=== PATIENT | male | born 1950 | race Caucasian/White ===

== ENCOUNTER → 2016-08-25 | Outpatient (CLI) | payer BC ==
[2016-08-25 11:58] LABS: Basophils % (A) 0 %; CH 32.8; CHCM 36.2; Eosinophils # (A) 0.3 k/uL (0-0.7); Eosinophils % (A) 4 %; HCT 45.4 % (39.0-53.0); HDW 2.91; HGB 15.8 gm/dL (13.0-17.5); Luc # (Auto) 0.21; Luc % (Auto) 3; Lymphocytes # (A) 2.3 k/uL (1.0-4.8); Lymphocytes % (A) 33 %; MCH 31.5 pg (25.0-35.0); MCHC 34.7 g/dL (31.0-37.0); MCV 90.8 fL (80.0-100.0); Mean Platelet Volume 6.3; Monocytes # (A) 0.5 k/uL (0-1.0); Monocytes % (A) 7 %; Neutrophils # (A) 3.7 k/uL (1.3-7.7); Neutrophils % (A) 53 %; RBC 5.01 m/uL (4.30-5.90); RDW 12.8 % (11.5-15.5); WBC (Perox) 7.19
[2016-08-25 12:18] LABS: Non-African American GFR(MDRD) >60 (>60 ml/min/1.73 sqM)
[2016-08-25 12:20] LABS: INR 1.3 (<1.1)
[2016-08-25 12:21] LABS: Prothrombin Time 12.4 sec (9.0-12.0)
[2016-08-29 15:14] LABS: HCV Qualitative Result DETECTED (Not detected)
== END | disposition home or self-care (01) ==
LOC: LABWHC1 11:09
PROVIDERS: ATTEND Physician Assistant
DX: B18.2 Chronic viral hepatitis C (principal)
CPT/HCPCS: 36415; 82565; 85025; 85610; 87522; 87902

== ENCOUNTER → 2016-10-30 | Outpatient (CLI) | payer BC ==
[2016-10-30 09:50] LABS: CH 33.2; CHCM 36.3; HCT 45.3 % (39.0-53.0); HDW 2.88; HGB 16.1 gm/dL (13.0-17.5); MCH 32.7 pg (25.0-35.0); MCHC 35.5 g/dL (31.0-37.0); Mean Platelet Volume 6.2; RBC 4.93 m/uL (4.30-5.90); RDW 13.2 % (11.5-15.5)
[2016-10-30 10:19] LABS: Anion Gap 11 mmol/L; Blood Urea Nitrogen 19 mg/dL (9-20); Carbon Dioxide 27 mmol/L (22-30); Chloride 103 mmol/L (98-107); Non-African American GFR(MDRD) >60 (>60 ml/min/1.73 sqM); Potassium 4.3 mmol/L (3.5-5.1); Sodium 141 mmol/L (137-145)
== END ==
LOC: LABMAIN 08:51
PROVIDERS: ATTEND Internal Medicine Cardiovascular Disease
DX: Z01.812 Encounter for preprocedural laboratory examination (principal); R07.9 Chest pain, unspecified
CPT/HCPCS: 36415; 80051; 82565; 84520; 85027

== ENCOUNTER 2016-11-03 06:41 | Day surgery (SDC) | payer BC ==
[~2016-11-03 06:41] MED LIST: ALPRAZolam 0.25 MG TAB PO PRN; ALPRAZolam 0.5 MG TAB PO PRN; ASPIRIN 325 MG TAB PO STA; ATORVASTATIN 80 MG TAB PO STA; NITROGLYCERIN SL TABS 0.4 MG TAB SUBLINGUAL PRN; SODIUM CHLORIDE 0.9% 1,000 ML in EMPTY BAG 1 BAG IV ONE
[2016-11-03 07:03] VITALS: RESP 16
[2016-11-03 07:06] LABS: Glucose,Whole Blood 144 mg/dL (75-99)
[2016-11-03] MEDS ORDERED: SODIUM CHLORIDE 0.9% 1,000 ML IV ONE (07:10)
[2016-11-03] MEDS ORDERED: LIDOCAINE 2% INJ 20 MG/ML (20 ML MDV) ONE (07:15)
[2016-11-03] MEDS ORDERED: diphenhydrAMINE 50 MG/ML 1 ML VIAL ONE (07:15)
[2016-11-03] MEDS ORDERED: MIDAZOLAM 2 MG/2 ML VIAL ONE (07:15)
[2016-11-03] MEDS ORDERED: fentaNYL (PF) 50 MCG/ML 2 ML AMP ONE (07:15)
[2016-11-03] MEDS ORDERED: fentaNYL (PF) 50 MCG/ML 2 ML AMP IV ONE (07:45)
[2016-11-03] MEDS ORDERED: diphenhydrAMINE 50 MG/ML 1 ML VIAL IVP ONE (07:45)
[2016-11-03] MEDS ORDERED: MIDAZOLAM 2 MG/2 ML VIAL IVP ONE (07:45)
[2016-11-03] MEDS ORDERED: LIDOCAINE 2% INJ 20 MG/ML SQ ONE (07:49)
[2016-11-03] MEDS ORDERED: IOHEXOL 350 MG/ML 100 ML BOTTLE INJ ONE (08:17)
[2016-11-03] MEDS ORDERED: RX INFO: IV CONTRAST WAS GIVEN 1 EACH MISC MISCELLANE PRN (08:23)
[2016-11-03] MEDS: SODIUM CHLORIDE 0.9% 1,000 ML IV SCH ×2 (08:30→21:19)
[2016-11-03] MEDS ORDERED: OMEGA 3 FATTY ACIDS PO SCH (08:30)
[2016-11-03] MEDS ORDERED: NITROGLYCERIN SL TABS 0.4 MG TAB SUBLINGUAL PRN (08:31)
--- NOTE | 2016-11-03 08:37 | P.PCN ---
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 His EKG showed biphasic T-wave changes in the lateral leads. Patient is advised to have a cardiac catheterization for definitive diagnosis. CONSENT:I have discussed the risks, benefits and alternative therapies for the above-mentioned procedure and for both sedation/analgesia as well as necessary blood product administration, if indicated, as they pertain to this patient. The patient has indicated understanding and acceptance of the risks and procedures discussed. PROCEDURE: Patient was brought to the lab in a fasting state. Patient was given some IV sedation. The right groin is infiltrated with lidocaine and right femoral artery was entered using Seldinger technique. A 6-Spanish catheter was left in place and selective coronary arteriography and left ventriculography was performed. Patient tolerated the procedure well. Femoral angiogram was performed and Angio-Seal was applied for hemostasis. No immediate complications were noted and patient was transferred to [facility] in a stable condition HEMODYNAMICS: Aortic pressure is 130/70. Left ankle end-diastolic pressure is 15. There was no gradient across the aortic valve SELECTIVE CORONARY ARTERIOGRAPHY: LEFT MAIN: Normal length and patent THE LEFT ANTERIOR DESCENDING CORONARY ARTERY: Good caliber vessel with a long lesion of the origin of the first septal branch that extended to the midportion. The mid LAD appears be fair in caliber. There appears to be a lesion in the distal LAD near the apex. There are faint collaterals from the right to the left. THE LEFT CIRCUMFLEX AND IS CORONARY ARTERY: Good caliber vessel free of any occlusive disease THE RIGHT CORONARY ARTERY: Good caliber vessel free of occlusive disease with collaterals to the LAD. LEFT VENTRICULOGRAPHY: Revealed normal-sized cardiac silhouette with hypokinesia of the apex and anteroapical segments. Ejection fraction is 45% FINAL IMPRESSION: Critical lesion involving the LAD which is a long lesion. There is a critical lesion involving the septal branch also. Rest of the vessels are free of occlusive disease. PLAN: The films were reviewed with retail mortgage banker Dr. Avina who felt that the lesions are not suitable for stent placement. Cardiac surgery consultation is obtained and an outpatient bypass surgery is being planned. Meanwhile patient will be continued on beta blockers and nitrates along with aspirin and lipid- lowering agent and also NIRMAL inhibitor. PROGNOSIS: Guarded
[2016-11-03] MEDS ORDERED: [UNRECOGNIZED DRUG - OTHER] PO SCH (09:00)
--- NOTE | 2016-11-03 11:47 | ECHOF ---
Referral Reason:pre-op open heart MEASUREMENTS -------- HEIGHT: 182.9 cm WEIGHT: 103.0 kg BP: IVSd: 1.5 cm (0.6 - 1.1) LVIDd: 3.6 cm (3.9 - 5.3) LVPWd: 1.4 cm (0.6 - 1.1) IVSs: 1.6 cm LVIDs: 2.2 cm LVPWs: 1.3 cm Ao Diam: 3.7 cm (2.0 - 3.7) AV Cusp: 2.1 cm (1.5 - 2.6) LA Diam: 3.4 cm (2.7 - 3.8) MV EXCURSION: 16.399 mm (> 18.000) MV EF SLOPE: 44 mm/s (70 - 150) EPSS: 0.5 cm MV E Luis Antonio: 0.70 m/s MV DecT: 168 ms MV A Luis Antonio: 0.46 m/s MV E/A Ratio: 1.52 RAP: 5.00 mmHg RVSP: 21.56 mmHg FINDINGS -------- Resting bradycardia (HR<60bpm). This was a technically good study. There is moderate concentric left ventricular hypertrophy. Overall left ventricular systolic function is low-normal with, an EF between 50 - 55 %. The right ventricle is normal in size and function. The left atrium is normal in size. The right atrium is normal in size. The aortic valve is trileaflet, and appears structurally normal. No aortic stenosis or regurgitation. There is trace mitral regurgitation. Mild tricuspid regurgitation present. The right ventricular systolic pressure, as measured by Doppler, is 21.56mmHg. Pulmonic valve appears structurally normal. The aortic root size is normal. The pericardium is normal. CONCLUSIONS -------- 1. Resting bradycardia (HR<60bpm). 2. Mild tricuspid regurgitation present. 3. The right ventricular systolic pressure, as measured by Doppler, is 21.56mmHg. 4. Pulmonic valve appears structurally normal. 5. The aortic root size is normal. 6. The pericardium is normal. 7. This was a technically good study. 8. There is moderate concentric left ventricular hypertrophy. 9. Overall left ventricular systolic function is low-normal with, an EF between 50 - 55 %. 10. The right ventricle is normal in size and function. 11. The left atrium is normal in size. 12. The right atrium is normal in size. 13. The aortic valve is trileaflet, and appears structurally normal. No aortic stenosis or regurgitation. 14. There is trace mitral regurgitation. BIOSTATISTICS PROFESSOR: Kami Biswas RDCS
--- NOTE | 2016-11-03 11:47 | US ---
EXAMINATION TYPE: US carotid duplex BILAT DATE OF EXAM: 11/03/2016 11:33 AM COMPARISON: NONE CLINICAL HISTORY: pre-op CABG. EXAM MEASUREMENTS: RIGHT: Peak Systolic Velocity (PSV) cm/sec ----- Right CCA: 45.5 ----- Right ICA: 62.9 ----- Right ECA: 62.9 ICA/CCA ratio: 1.4 RIGHT: End Diastole cm/sec ----- Right CCA: 15.6 ----- Right ICA: 24.3 ----- Right ECA: 10.4 LEFT: Peak Systolic Velocity (PSV) cm/sec ----- Left CCA: 49.4 ----- Left ICA: 70.3 ----- Left ECA: 53.7 ICA/CCA ratio: 1.4 LEFT: End Diastole cm/sec ----- Left CCA: 15.4 ----- Left ICA: 28.4 ----- Left ECA: 7.5 VERTEBRALS (direction of flow): Right Vertebral: Antegrade Left Vertebral: Antegrade No significant velocity elevations, mild plaque. IMPRESSION: No evidence for hemodynamically significant stenosis. Criteria for Assigning % of Stenosis / Diameter reduction (Estimation based on the indirect measurements of the internal carotid artery velocities (ICA PSV). 1. Normal (no stenosis)=ICA PSV < 125 cm/s: ratio < 2.0: ICA EDV<40 cm/s. 2. Less than 50% stenosis=ICA PSV < 125 cm/s: ratio < 2.0: ICA EDV<40 cm/s. 3. 50 to 69% stenosis=ICA PSV of 125 to 230 cm/s: ration 2.0 ? 4.0: ICA EDV 40-100 cm/s. 4. Greater than 70% stenosis to near occlusion= ICA PSV > 230 cm/s: ratio > 4.0: ICA EDV > 100 cm/s. 5. Near occlusion= ICA PSV velocities may be low or undetectable: variable ratio and ICA EDV. 6. Total occlusion=unable to detect flow.
[2016-11-03 12:53] LABS: Appearance,Urine Clear (Clear); Bilirubin,Urine Negative (Negative); Glucose,Urine (UA) Negative (Negative); Ketones,Urine Negative (Negative); Leukocyte Esterase,Urine Negative (Negative); Nitrite,Urine Negative (Negative); Protein,Urine Negative (Negative); Specific Gravity,Urine 1.033 (1.001-1.035); UA Billing (MACRO vs. MICRO) CHEM; Urobilinogen,Urine <2.0 mg/dL (<2.0)
--- NOTE | 2016-11-03 13:10 | XR ---
EXAMINATION TYPE: XR chest 2V DATE OF EXAM: 11/03/2016 1:02 PM COMPARISON: NONE HISTORY: Shortness of breath TECHNIQUE: Frontal and lateral views of the chest are obtained. FINDINGS: Scattered senescent parenchymal changes noted. Hyperinflation compatible with COPD. No evidence for infiltrate. No evidence for atelectasis. Heart size is stable. Mediastinal structures are stable and grossly unremarkable. No evidence for hilar prominence. Degenerative changes dorsal spine. IMPRESSION: 1. No evidence for acute pulmonary disease.
[2016-11-03] MEDS ORDERED: ISOSORBIDE MONONITRATE ER 15 MG TAB PO STA (15:12)
[2016-11-03] MEDS: LISINOPRIL 2.5 MG TAB PO SCH (15:12)
--- NOTE | 2016-11-03 15:36 | P.GSCN ---
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 Patient is been having exertional angina for several months now. cardiothoracic surgical consult was called Review of Systems - Cardiovascular Reports chest pain Past Medical History Additional Past Medical History / Comment(s): See Dr Frost H&P, diet control diabetic. Hepatitis C ( + ) History of Any Multi-Drug Resistant Organisms: None Reported Additional Past Surgical History / Comment(s): colonocopy Past Anesthesia/Blood Transfusion Reactions: No Reported Reaction Past Psychological History: Anxiety Smoking Status: Former smoker Past Alcohol Use History: Occasional Additional Past Alcohol Use History / Comment(s): quit smoking yrs ago Past Drug Use History: None Reported - Past Family History Mother Family Medical History: No Reported History Medications and Allergies Home Medications Medication Instructions Recorded Confirmed Type Aspirin [Adult Low Dose Aspirin EC] 81 mg PO DAILY 11/01/16 11/03/16 History Gluc/Gregg-MSM#1/C/Robinson/Link/Bor 1 each PO DAILY 11/01/16 11/03/16 History [Glucosamine-Chondroitin Tablet] Lactobacillus Acidophilus 1 each PO DAILY 11/01/16 11/03/16 History [Acidophilus] Loratadine-Pseudoeph 10-240 mg 1 each PO DAILY 11/01/16 11/03/16 History [Claritin-D 24 Hr] Montelukast Sodium [Singulair] 10 mg PO DAILY 11/01/16 11/03/16 History Multivitamins, Thera [Multivitamin 1 tab PO DAILY 11/01/16 11/03/16 History (formulary)] [place]-3 Fatty Acids [[place]-3] 1,500 mg PO Q48H 11/01/16 11/03/16 History Allergies Allergy/AdvReac Type Severity Reaction Status Date / Time No Known Allergies Allergy Verified 11/01/16 15:10 Surgical - Exam Vital Signs Pulse Resp BP Pulse Ox 63 16 135/79 96 11/03/16 06:57 11/03/16 06:57 11/03/16 06:57 11/03/16 06:57 - General well developed, well nourished, no distress - Eyes normal ocular movement, no icteric - ENT no hearing loss, no congestion - Neck no masses, trachea midline - Respiratory normal respiratory effort, clear to auscultation - Cardiovascular Rhythm: regular Heart Sounds: normal: S1, S2 - Abdomen Abdomen: soft, non tender, no guarding, no rigid, no rebound - Genitourinary DEFERRED - Rectum DEFERRED - Integumentary no rash, no abnormal pigmentation - Neurologic no disoriented, no combative - Psychiatric oriented to time, oriented to person, oriented to place, speech is normal, memory intact MILD EDEMA BOTH LOWER EXTREMITIES. Results - Labs 11/03/16 12:39 11/03/16 12:39 Abnormal Lab Results - Last 24 Hours (Table) 11/03/16 11/03/16 11/03/16 Range/Units 07:03 12:39 12:39 PT 12.5 H (9.0-12.0) sec Carbon Dioxide 33 H (22-30) mmol/L Glucose 125 H (74-99) mg/dL POC Glucose (mg/dL) 144 H (75-99) mg/dL Triglycerides 245 H (<150) mg/dL HDL Cholesterol 33 L (40-60) mg/dL Microbiology - Last 24 Hours (Table) 11/03/16 09:49 Nasal Screen MRSA/MSSA (SANDRA) - Preliminary Nasal Swab Diabetes panel 11/03/16 Range/Units 12:39 Sodium 144 (137-145) mmol/L Potassium 4.2 (3.5-5.1) mmol/L Chloride 105 (98-107) mmol/L Carbon Dioxide 33 H (22-30) mmol/L BUN 15 (9-20) mg/dL Creatinine 0.97 (0.66-1.25) mg/dL Glucose 125 H (74-99) mg/dL Calcium 9.2 (8.4-10.2) mg/dL AST 41 (17-59) U/L ALT 64 (21-72) U/L Alkaline Phosphatase 55 (38-126) U/L Total Protein 6.8 (6.3-8.2) g/dL Albumin 3.9 (3.5-5.0) g/dL Triglycerides 245 H (<150) mg/dL HDL Cholesterol 33 L (40-60) mg/dL Thyroid panel 11/03/16 Range/Units 12:39 TSH 1.310 (0.465-4.680) mIU/L Calcium panel 11/03/16 Range/Units 12:39 Calcium 9.2 (8.4-10.2) mg/dL Albumin 3.9 (3.5-5.0) g/dL Pituitary panel 11/03/16 Range/Units 12:39 Sodium 144 (137-145) mmol/L Potassium 4.2 (3.5-5.1) mmol/L Chloride 105 (98-107) mmol/L Carbon Dioxide 33 H (22-30) mmol/L BUN 15 (9-20) mg/dL Creatinine 0.97 (0.66-1.25) mg/dL Glucose 125 H (74-99) mg/dL Calcium 9.2 (8.4-10.2) mg/dL TSH 1.310 (0.465-4.680) mIU/L Adrenal panel 11/03/16 Range/Units 12:39 Sodium 144 (137-145) mmol/L Potassium 4.2 (3.5-5.1) mmol/L Chloride 105 (98-107) mmol/L Carbon Dioxide 33 H (22-30) mmol/L BUN 15 (9-20) mg/dL Creatinine 0.97 (0.66-1.25) mg/dL Glucose 125 H (74-99) mg/dL Calcium 9.2 (8.4-10.2) mg/dL Total Bilirubin 0.6 (0.2-1.3) mg/dL AST 41 (17-59) U/L ALT 64 (21-72) U/L Alkaline Phosphatase 55 (38-126) U/L Total Protein 6.8 (6.3-8.2) g/dL Albumin 3.9 (3.5-5.0) g/dL - Imaging Chest x-ray: report reviewed, image reviewed EKG: report reviewed, image reviewed Additional studies: CAROTID DUPLEX RULED OUT ANY SIGNIFICANT CAROTID STENOSIS. 2-d ECHO SHOWS AN EJECTION FRACTION OF 50-55%WITH MILD MITRAL VALVE REGURGITATION. Cardiac catheterization shows a long severe proximal left anterior descending artery stenosis of the coronary vessels have no flow-limiting stenosis. Assessment and Plan Plan: 66 YEARS OLD GENTLEMAN WITH CHRONIC EXERTIONAL ANGINA WITH SEVERE PROXIMAL STENOSIS OF THE LEFT ANTERIOR DESCENDING ARTERY. we will initiate preoperative workup and tentatively schedule the patient for single-vessel coronary artery bypass grafting on a beating heart next week. Risks benefits and alternatives of surgery were discussed with the patient will be to proceed. Thank you for the privilege of this consult
[2016-11-03] MEDS ORDERED: MULTIVITAMINS, THERA 1 EACH TAB PO SCH (16:00)
[2016-11-03] MEDS: METOPROLOL TARTRATE 25 MG TAB PO SCH ×3 (17:43→21:18)
[2016-11-03] MEDS: LORATADINE-PSEUDOEPH 5-120 MG 1 EACH TAB.ER.12H PO SCH ×2 (17:44→17:50)
[2016-11-03] MEDS: LACTOBACILLUS ACIDOPH & BULGAR 1 EACH PACKET PO SCH (17:45)
[2016-11-03] MEDS: MONTELUKAST 10 MG TAB PO SCH ×2 (17:45→17:50)
[2016-11-03 18:01] VITALS: BMI 31.7
[2016-11-03 18:38] LABS: Hemoglobin A1C 6.2 % (4.2-6.1)
[2016-11-04 08:12] VITALS: BP 98/49; PULSE 53; TEMP 97.9
[2016-11-04] MEDS ORDERED: ATORVASTATIN 80 MG TAB PO SCH (09:00)
[2016-11-04] MEDS ORDERED: ISOSORBIDE MONONITRATE ER 15 MG TAB PO SCH (09:00)
[2016-11-04] MEDS ORDERED: ASPIRIN 81 MG CHEW PO SCH (09:00)
[2016-11-04] MEDS: LACTOBACILLUS ACIDOPH & BULGAR 1 EACH PACKET PO SCH (09:12)
[2016-11-04] MEDS: LORATADINE-PSEUDOEPH 5-120 MG 1 EACH TAB.ER.12H PO SCH (09:12)
[2016-11-04] MEDS: MONTELUKAST 10 MG TAB PO SCH (09:12)
[2016-11-04] MEDS: METOPROLOL TARTRATE 25 MG TAB PO SCH (10:32)
[2016-11-04] MEDS: LISINOPRIL 2.5 MG TAB PO SCH (10:32)
== END 2016-11-04 10:55 | disposition home or self-care (01) ==
LOC: CATHCVL 06:41 → 3OBS 08:03 → CATHCVL 11-04 10:55
PROVIDERS: ATTEND Internal Medicine Cardiovascular Disease
DX: I25.110 Atherosclerotic heart disease of native coronary artery with unstable angina pectoris (principal); R94.31 Abnormal electrocardiogram [ECG] [EKG]; R00.1 Bradycardia, unspecified; I08.1 Rheumatic disorders of both mitral and tricuspid valves; I51.7 Cardiomegaly; E78.9 Disorder of lipoprotein metabolism, unspecified; E11.9 Type 2 diabetes mellitus without complications; F41.9 Anxiety disorder, unspecified; Z87.891 Personal history of nicotine dependence; Z79.82 Long term (current) use of aspirin; Z79.899 Other long term (current) drug therapy
CPT/HCPCS: 94150; 93306; 93005; 93458; 83036; 81003; 87070; 87086; 71020; 93880; C1760; C1894; C1769; J2001; J2250; J1200; Q9967; J3010; 80053; 80061; 80074; 83735; 83880; 84443; 85025; 85610; 85730; 86850; 86900; 86901; 86920

== ENCOUNTER → 2016-11-07 | Outpatient (CLI) | payer BC ==
[2016-11-11 17:06] LABS: Mis test requested (Blood) Hep. C RNA Geno NS5a
== END ==
LOC: LABWHC1 14:50
PROVIDERS: ATTEND Physician Assistant
DX: B18.2 Chronic viral hepatitis C (principal)
CPT/HCPCS: 36415; 87902

== ENCOUNTER 2016-11-10 05:55 | Inpatient (IN) | payer BC ==
[2016-11-03 13:12] LABS: ALT 64 U/L (21-72); AST 41 U/L (17-59); Alkaline Phosphatase 55 U/L (38-126); Anion Gap 6 mmol/L; Blood Urea Nitrogen 15 mg/dL (9-20); Calcium 9.2 mg/dL (8.4-10.2); Carbon Dioxide 33 mmol/L (22-30); Chloride 105 mmol/L (98-107); Cholesterol 130 mg/dL (<200); Glucose 125 mg/dL (74-99); HDL Cholesterol 33 mg/dL (40-60); Magnesium 2.1 mg/dL (1.6-2.3); Non-African American GFR(MDRD) >60 (>60 ml/min/1.73 sqM); Potassium 4.2 mmol/L (3.5-5.1); Sodium 144 mmol/L (137-145); Total Bilirubin 0.6 mg/dL (0.2-1.3); Total Protein 6.8 g/dL (6.3-8.2); Triglycerides 245 mg/dL (<150)
[2016-11-03 13:15] LABS: Basophils % (A) 0 %; CH 32.5; CHCM 35.5; Eosinophils # (A) 0.2 k/uL (0-0.7); Eosinophils % (A) 3 %; HCT 44.2 % (39.0-53.0); HDW 2.92; HGB 15.6 gm/dL (13.0-17.5); Luc # (Auto) 0.18; Luc % (Auto) 3; Lymphocytes # (A) 2.4 k/uL (1.0-4.8); Lymphocytes % (A) 35 %; MCH 32.4 pg (25.0-35.0); MCHC 35.3 g/dL (31.0-37.0); MCV 91.8 fL (80.0-100.0); Mean Platelet Volume 6.5; Monocytes # (A) 0.4 k/uL (0-1.0); Monocytes % (A) 6 %; Neutrophils # (A) 3.6 k/uL (1.3-7.7); Neutrophils % (A) 53 %; RBC 4.81 m/uL (4.30-5.90); RDW 12.7 % (11.5-15.5); WBC 6.8 k/uL (3.8-10.6); WBC (Perox) 6.76
[2016-11-03 13:18] LABS: INR 1.3 (<1.1); Partial Thromboplastin Time 26.1 sec (22.0-30.0); Prothrombin Time 12.5 sec (9.0-12.0)
[2016-11-03 13:42] LABS: Hepatitis B Surface Ag Index 0.07
[2016-11-03 13:48] LABS: Hepatitis B Core IgM Index 0.59
[2016-11-03 14:00] LABS: Hepatitis C Virus IgG Ab Reactive (Negative)
[2016-11-08 15:01] VITALS: BMI 30.7
[~2016-11-10 05:55] MED LIST changes: +ALBUMIN HUMAN 25% 50 ML IV ONE; +ALBUMIN HUMAN 5% 500 ML IVPB ONE; -ALPRAZolam 0.25 MG TAB PO PRN; -ALPRAZolam 0.5 MG TAB PO PRN; +ASPIRIN 325 MG TAB PO ONE; -ASPIRIN 325 MG TAB PO STA; +ATORVASTATIN 10 MG TAB PO ONE; -ATORVASTATIN 80 MG TAB PO STA; +CALCIUM CHLORIDE 100 MG/ML 10 ML SYRINGE IV ONE; +CHLORHEXIDINE GLUCONATE 15 ML CUP MUCOUS MEM ONE; +HEPARIN SODIUM 1,000 UNIT/ML VIAL IV ONE; +HEPARIN SODIUM,PORCINE 5,000 UNIT in SODIUM CHLORIDE 0.9% 500 ML IV ONE; +INSULIN REGULAR 100 UNIT in SODIUM CHLORIDE 0.9% 100 ML IV ONE; +LACTATED RINGERS 1,000 ML IV ONE; +MAGNESIUM SULFATE MG 500 MG/ML VIAL IV ONE; +METOPROLOL TARTRATE 12.5 MG TAB PO ONE; +NITROGLYCERIN SL TABS 0.4 MG TAB SUBLINGUAL ONE; -NITROGLYCERIN SL TABS 0.4 MG TAB SUBLINGUAL PRN; +NITROGLYCERIN-D5W PMX 25 MG/250 ML BTL IV ONE; +NITROGLYCERIN-D5W PMX 50 MG in DEXTROSE/WATER 1 250ML.BAG IV ONE; +NOREPINEPHRIN 4 MG-0.9% NS PMX 4 MG/250 ML ML IV ONE; +PAPAVERINE 360 MG in SODIUM CHLORIDE 0.9% 90 ML IV ONE; +PHENYLEPHRINE 40 MG in SODIUM CHLORIDE 0.9% 250 ML IV ONE; +PHENYLEPHRINE-0.9% NACL SYG 1 MG/10 ML SYRINGE IV ONE; +PROPOFOL 50 ML IV ONE; +PROTAMINE SULFATE 10 MG/ML 25 ML VIAL IV ONE; +PROTAMINE SULFATE 250 MG in EMPTY BAG 1 BAG IV ONE; +SODIUM BICARB 8.4% 50 ML SYR (1 MEQ/ML) IV ONE; +SODIUM CHLORIDE 0.9% 1,000 ML IV ONE; -SODIUM CHLORIDE 0.9% 1,000 ML in EMPTY BAG 1 BAG IV ONE; +VANCOMYCIN 1,500 MG in SODIUM CHLORIDE 0.9% 100 ML IVPB ONE; +VANCOMYCIN 1,500 MG in SODIUM CHLORIDE 0.9% 250 ML IVPB ONE; +ceFAZolin 1,000 MG in SODIUM CHLORIDE 0.9% IRRIGATIO 1,000 ML IRRIGATION ONE; +ceFAZolin 2,000 MG in SODIUM CHLORIDE 0.9% 30 ML IVPB ONE
[2016-11-10 06:21] LABS: Glucose,Whole Blood 142 mg/dL (75-99)
[2016-11-10] MEDS ORDERED: ALBUMIN HUMAN 5% 250 ML BOTTLE IVPB ONE (10:06)
[2016-11-10] MEDS ORDERED: HEPARIN SODIUM,PORCINE 10,000 UNIT/ML 1 ML VIAL ONE (10:06)
[2016-11-10] MEDS ORDERED: PHENYLEPHRINE-0.9% NACL SYG 1 MG/10 ML SYRINGE ONE (10:06)
[2016-11-10] MEDS ORDERED: PROPOFOL 10 MG/ML 20 ML VIAL IV ONE (10:06)
[2016-11-10] MEDS ORDERED: PROTAMINE SULFATE 10 MG/ML 25 ML VIAL IV ONE (10:06)
[2016-11-10] MEDS ORDERED: MIDAZOLAM 2 MG/2 ML VIAL ONE (10:06)
[2016-11-10] MEDS ORDERED: MAGNESIUM SULFATE 4 MEQ/ML 2 ML VIAL ONE (10:06)
[2016-11-10] MEDS ORDERED: VECURONIUM 10 MG VIAL IV ONE (10:06)
[2016-11-10] MEDS ORDERED: ePHEDrine 50 MG/ML 1 ML AMP ONE (10:06)
[2016-11-10] MEDS ORDERED: fentaNYL (PF) 50 MCG/ML 2 ML AMP ONE (10:06)
[2016-11-10] MEDS ORDERED: ALBUMIN HUMAN 5% 500 ML VIAL IVPB ONE (10:06)
[2016-11-10] MEDS ORDERED: SODIUM CHLORIDE 0.9% IRRIG 1,000 ML BTL IRRIGATION ONE (10:06)
[2016-11-10] MEDS ORDERED: fentaNYL (PF) 50 MCG/ML 50 ML VIAL ONE (10:06)
[2016-11-10 10:49] LABS: Glucose,Whole Blood 120 mg/dL (75-99)
[2016-11-10 12:07] LABS: Glucose,Whole Blood 125 mg/dL (75-99)
[2016-11-10 13:06] LABS: Glucose,Whole Blood 113 mg/dL (75-99)
[2016-11-10] MEDS ORDERED: METOCLOPRAMIDE 5 MG/ML 2 ML VIAL IVP PRN (13:51)
[2016-11-10] MEDS ORDERED: MORPHINE SULFATE 2 MG/ML SYRINGE IVP PRN (13:51)
[2016-11-10] MEDS ORDERED: BENZOCAINE/MENTHOL LOZENG 1 EACH LOZENGE MUCOUS MEM PRN (13:51)
[2016-11-10] MEDS ORDERED: Potassium Replacement Protocol 1 EACH MISC MISCELLANE PRN (13:51)
[2016-11-10] MEDS ORDERED: ONDANSETRON 4 MG/2 ML VIAL IVP PRN (13:51)
[2016-11-10] MEDS ORDERED: CALCIUM GLUCONATE 2,000 MG in SODIUM CHLORIDE 0.9% 100 ML IVPB PRN (13:51)
[2016-11-10] MEDS ORDERED: ALBUMIN HUMAN 5% 250 ML in EMPTY BAG 1 BAG IVPB PRN (13:51)
[2016-11-10] MEDS ORDERED: Phosphorus Replacement Protoco 1 EACH MISC MISCELLANE PRN (13:51)
[2016-11-10] MEDS ORDERED: Magnesium Replacement Protocol 1 EACH MISC MISCELLANE PRN (13:51)
[2016-11-10] MEDS ORDERED: LACTATED RINGERS 1,000 ML IV SCH (14:00)
[2016-11-10] MEDS ORDERED: ASPIRIN 300 MG SUPP RECTAL ONE (14:15)
[2016-11-10 14:35] LABS: Glucose,Whole Blood 106 mg/dL (75-99)
[2016-11-10 14:57] LABS: Basophils % (A) 0 %; CH 33.1; CHCM 35.8; Eosinophils # (A) 0.2 k/uL (0-0.7); Eosinophils % (A) 2 %; HCT 32.2 % (39.0-53.0); HDW 2.83; Luc # (Auto) 0.08; Luc % (Auto) 1; Lymphocytes # (A) 1.4 k/uL (1.0-4.8); Lymphocytes % (A) 15 %; MCHC 34.5 g/dL (31.0-37.0); MCV 92.8 fL (80.0-100.0); Mean Platelet Volume 6.9; Monocytes # (A) 0.5 k/uL (0-1.0); Monocytes % (A) 6 %; Neutrophils % (A) 76 %; RBC 3.46 m/uL (4.30-5.90); RDW 13.1 % (11.5-15.5); WBC 9.2 k/uL (3.8-10.6); WBC (Perox) 9.93
[2016-11-10 14:57] LABS: ABG Base Excess -2.4 mmol/L; ABG HCO3 22 mmol/L (21-25); ABG Oxygen Saturation 98.9 % (94-97); ABG PCO2 41 mmHg (35-45); ABG PH 7.36 (7.35-7.45); ABG PO2 135 mmHg (83-108); ABG TCO2 24 mmol/L (19-24)
[2016-11-10 14:58] LABS: Glucose,Whole Blood 109 mg/dL (75-99)
--- NOTE | 2016-11-10 14:58 | XR ---
EXAMINATION TYPE: XR chest 1V portable DATE OF EXAM: 11/10/2016 2:49 PM COMPARISON: 11/03/2016 INDICATION: Postoperative cardiac surgery TECHNIQUE: Single frontal view of the chest is obtained. FINDINGS: The heart size is normal. Sternotomy wires are in the midline. The pulmonary vasculature is normal. There is a right upper lobe consolidation with elevation of the minor fissure. Correlate for atelecta sis. Pneumonia could be considered. Follow-up is recommended. Endotracheal tube is present with tip above the michael. Nasogastric tube transverses the thorax tip i n the proximal left upper quadrant of the abdomen. Right [place] catheter is present with the tip i n the right main pulmonary artery region. Left-sided chest tube is present IMPRESSION: 1. Right upper lobe consolidation suspicious for atelectasis. Pneumonia should be considered and this should be followed. 2. Multiple lines and catheters discussed above
[2016-11-10 14:59] LABS: INR 1.5 (<1.1); Prothrombin Time 14.6 sec (9.0-12.0)
[2016-11-10 15:01] LABS: ALT 50 U/L (21-72); AST 27 U/L (17-59); Alkaline Phosphatase 30 U/L (38-126); Anion Gap 10 mmol/L; Blood Urea Nitrogen 16 mg/dL (9-20); Calcium 8.4 mg/dL (8.4-10.2); Carbon Dioxide 25 mmol/L (22-30); Chloride 109 mmol/L (98-107); Glucose 96 mg/dL (74-99); Non-African American GFR(MDRD) >60 (>60 ml/min/1.73 sqM); Potassium 3.7 mmol/L (3.5-5.1); Sodium 144 mmol/L (137-145); Total Bilirubin 0.8 mg/dL (0.2-1.3); Total Protein 5.5 g/dL (6.3-8.2)
[2016-11-10 15:09] LABS: HGB 11.1 gm/dL (13.0-17.5)
[2016-11-10] MEDS ORDERED: POTASSIUM CHLORIDE 20 MEQ in WATER FOR INJECTION 1 100ML.BAG IVPB ONE (15:15)
[2016-11-10] MEDS: PROPOFOL 500 MG in EMPTY BAG 1 BAG IV SCH ×6 (15:17→22:47)
[2016-11-10] MEDS: CLEVIDIPINE BUTYRATE 25 MG in EMPTY BAG 1 BAG IV ONE ×2 (15:29→15:49)
[2016-11-10 15:44] LABS: Glucose,Whole Blood 97 mg/dL (75-99)
--- NOTE | 2016-11-10 15:44 | XR ---
EXAMINATION TYPE: XR chest 1V portable DATE OF EXAM: 11/10/2016 3:39 PM COMPARISON: 11/10/2016 INDICATION: Post CABG right upper lobe collapse TECHNIQUE: Single frontal view of the chest is obtained. FINDINGS: The heart size is normal. The pulmonary vasculature is normal. Previous right upper lobe atelectasis has resolved. There is some residual thickening along the minor fissure which can be some residual atelectasis fluid. Lungs otherwise appear clear. Left-sided chest tube remains in position. Mediastinal tubes remain in position. Endotracheal tube an d nasogastric tube are present. [place]-Y[place] catheter is unchanged. IMPRESSION: 1. Resolution previous right upper lobe atelectasis
[2016-11-10] MEDS: LACTATED RINGERS 1,000 ML IV SCH (15:47)
[2016-11-10] MEDS: NITROGLYCERIN-D5W PMX 50 MG in DEXTROSE/WATER 1 250ML.BAG IV SCH (15:48)
[2016-11-10] MEDS: ceFAZolin 2 GM in SODIUM CHLORIDE 0.9% 100 ML IVPB SCH ×2 (15:49→23:28)
[2016-11-10] MEDS: CLEVIDIPINE BUTYRATE 25 MG in EMPTY BAG 1 BAG IV SCH ×4 (15:59→22:12)
[2016-11-10 16:36] LABS: Glucose,Whole Blood 113 mg/dL (75-99)
--- NOTE | 2016-11-10 17:08 | P.CNPUL ---
History of Present Illness Consult date: 11/10/16 Reason for consult: other Chief complaint: Postoperative respiratory failure, status post bypass History of present illness: 66-year-old male who I'm asked to see after single-vessel bypass. The patient' s back in the ICU room 618 on the ventilator. I will review the gases. I'll make some changes there. We'll make sure the patient's on updrafts. 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 He had a long severe proximal left anterior descending artery stenosis not ideal for PTCA stenting. For that reason he underwent a single-vessel off-pump bypass. He does have a history of diet- controlled diabetes and hepatitis C. He apparently is also had colonoscopy. He is a former smoker. Does not have any or use any illicit drugs. No mention of his alcohol use. Review of Systems ROS unobtainable: due to endotracheal tube Past Medical History Past Medical History: Chest Pain / Angina, Diabetes Mellitus, Hyperlipidemia, Hypertension, Liver Disease Additional Past Medical History / Comment(s): diet control diabetic. Hepatitis C ( + )-states had some testing re-done on 11-07 to re-check History of Any Multi-Drug Resistant Organisms: None Reported Past Surgical History: Heart Catheterization Additional Past Surgical History / Comment(s): colonoscopies Past Anesthesia/Blood Transfusion Reactions: No Reported Reaction Past Psychological History: No Psychological Hx Reported Smoking Status: Former smoker Past Alcohol Use History: Occasional Additional Past Alcohol Use History / Comment(s): quit smoking 10 yrs. ago, smoked 1ppd on & off since teens prior to quitting Past Drug Use History: None Reported - Past Family History Mother Family Medical History: No Reported History Medications and Allergies Home Medications Medication Instructions Recorded Confirmed Type Gluc/Gregg-MSM#1/C/Robinson/Link/Bor 1 tab PO DAILY 11/01/16 11/10/16 History [Glucosamine-Chondroitin Tablet] Lactobacillus Acidophilus 1 tab PO DAILY 11/01/16 11/10/16 History [Acidophilus] Loratadine-Pseudoeph 10-240 mg 1 tab PO DAILY 11/01/16 11/10/16 History [Claritin-D 24 Hour] Montelukast Sodium [Singulair] 10 mg PO DAILY 11/01/16 11/10/16 History Multivitamins, Thera [Multivitamin 1 tab PO DAILY 11/01/16 11/10/16 History (formulary)] Aspirin 324 mg PO ONCE 11/10/16 11/10/16 History [place]-3 1,500 mg PO Q48H 11/10/16 11/10/16 History Allergies Allergy/AdvReac Type Severity Reaction Status Date / Time isosorbide Allergy headache & Verified 11/10/16 06:24 tingling Physical Exam Osteopathic Statement: *. No significant issues noted on an osteopathic structural exam other than those noted in the History and Physical/Consult. Vitals: Vital Signs Temp Pulse Pulse Resp BP BP Pulse Ox 11/10/16 16:15 87 100 11/10/16 16:00 85 12 100 11/10/16 15:45 82 100 11/10/16 15:30 81 100 11/10/16 15:15 77 100 11/10/16 15:00 76 12 100 11/10/16 14:45 78 99 11/10/16 14:30 76 100 11/10/16 14:24 81 11/10/16 13:52 96.1 F L 11/10/16 06:15 97.6 F 59 L 18 120/64 124/66 97 Intake and Output 11/10/16 11/10/16 11/10/16 06:59 14:59 22:59 Intake Total 50 260 Output Total 1265 290 Balance -1215 -30 Intake: IV 60 cardiac output 60 Intake, IV Titration 50 200 Amount Lactated Ringers 1,000 ml 50 100 @ 50 mls/hr IV .Q20H MIKAYLA Rx#:[id number] ceFAZolin 2 gm In Sodium 100 Chloride 0.9% 100 ml @ 100 mls/hr IVPB Q8HR MIKAYLA Rx#:[id number] Output: Chest Tube Drainage 115 185 Chest Tube Mediastinal 85 105 Left Pleural/Mediastinal 30 80 Urine 350 105 Estimated Blood Loss 800 Other: Weight 102.3 kg ABP, PAP, CO, CI - Last 8 Hours Arterial Blood Pressure 129/61 Arterial Blood Pressure 132/60 Arterial Blood Pressure 146/63 Arterial Blood Pressure 141/64 Arterial Blood Pressure 124/57 Arterial Blood Pressure 127/60 Arterial Blood Pressure 126/1 Arterial Blood Pressure 145/59 Arterial Blood Pressure 0/0 Pulmonary Artery Pressure 33/24 Pulmonary Artery Pressure 33/24 Pulmonary Artery Pressure 31/22 Pulmonary Artery Pressure 36/25 Pulmonary Artery Pressure 30/21 Pulmonary Artery Pressure 31/21 Pulmonary Artery Pressure 30/18 Pulmonary Artery Pressure 33/21 Pulmonary Artery Pressure 28/14 Cardiac Output 9.1 Cardiac Output 9.1 Cardiac Output 7.9 Cardiac Output 7.2 Cardiac Output 7.2 Cardiac Output 7.2 Cardiac Output 8.0 Cardiac Index 4.1 Cardiac Index 3.6 Cardiac Index 3.2 Cardiac Index 3.6 No acute distress, currently ventilated. HEENT examinations unremarkable. Mucous membranes are moist Neck supple. Full range of motion. No adenopathy. Cardiovascular examination reveals distant heart sounds. S1 and S2 normal. No S3-S4 or murmur. Lungs reveal mostly clear breath sounds. No wheezes or rhonchi. Few scattered crackles. Abdomen soft bowel sounds are heard Extremities are intact. No cyanosis clubbing or edema Skin without rash. Neurologic examination cannot be performed at this time. Results - Laboratory Findings CBC and BMP: 11/10/16 14:30 11/10/16 14:30 ABG ABG pH 7.36 (7.35-7.45) 11/10/16 14:45 ABG pCO2 41 mmHg (35-45) 11/10/16 14:45 ABG pO2 135 mmHg (83-108) H 11/10/16 14:45 ABG O2 Saturation 98.9 % (94-97) H 11/10/16 14:45 PT/INR, D-dimer PT 14.6 sec (9.0-12.0) H 11/10/16 14:30 INR 1.5 (<1.1) 11/10/16 14:30 Abnormal lab findings: Abnormal Labs 11/03/16 11/03/16 11/03/16 12:39 12:39 12:39 RBC Hgb Hct Plt Count PT 12.5 H APTT ABG pO2 ABG O2 Saturation Chloride Carbon Dioxide 33 H Glucose 125 H POC Glucose (mg/dL) Alkaline Phosphatase Total Protein Triglycerides 245 H HDL Cholesterol 33 L Crossmatch See Detail 11/10/16 11/10/16 11/10/16 06:19 10:46 12:06 RBC Hgb Hct Plt Count PT APTT ABG pO2 ABG O2 Saturation Chloride Carbon Dioxide Glucose POC Glucose (mg/dL) 142 H 120 H 125 H Alkaline Phosphatase Total Protein Triglycerides HDL Cholesterol Crossmatch 11/10/16 11/10/1611/10/17 12:59 14:30 14:30 RBC 3.46 L Hgb 11.1 L D Hct 32.2 L Plt Count 146 L PT APTT ABG pO2 ABG O2 Saturation Chloride 109 H Carbon Dioxide Glucose POC Glucose (mg/dL) 113 H Alkaline Phosphatase 30 L Total Protein 5.5 L Triglycerides HDL Cholesterol Crossmatch 11/10/16 11/10/16 11/10/16 14:30 14:33 14:45 RBC Hgb Hct Plt Count PT 14.6 H APTT 33.0 H ABG pO2 135 H ABG O2 Saturation 98.9 H Chloride Carbon Dioxide Glucose POC Glucose (mg/dL) 106 H Alkaline Phosphatase Total Protein Triglycerides HDL Cholesterol Crossmatch 11/10/16 11/10/16 14:57 16:35 RBC Hgb Hct Plt Count PT APTT ABG pO2 ABG O2 Saturation Chloride Carbon Dioxide Glucose POC Glucose (mg/dL) 109 H 113 H Alkaline Phosphatase Total Protein Triglycerides HDL Cholesterol Crossmatch - Diagnostic Findings Chest x-ray: image reviewed Assessment and Plan (1) Hx of CABG Status: Acute (2) Diabetes Status: Acute Plan: Plan dated 11/10/2016 Articulate the chest x-ray. We'll review the blood gases. We'll make adjustments of ventilator as required. The patient is currently on a PEEP of 10. I've asked the nurse to drop the FiO2 by 10% increments until the FiO2 is 50%. At that point. Can be dropped from 10-5. At that point, the patient is awake and alert we can start the weaning process. We'll make sure the patient' s also on updrafts. Additional recommendations suggestions are forthcoming. The x-ray was reviewed. Time with Patient: Greater than 30
[2016-11-10 17:12] LABS: Glucose,Whole Blood 155 mg/dL (75-99)
[2016-11-10] MEDS: IPRATROPIUM-ALBUTEROL 3 ML NEB INHALATION SCH ×2 (17:23→19:51)
[2016-11-10] MEDS: ACETAMINOPHEN IV (For NPO) 1,000 MG in EMPTY BAG 1 BAG IVPB SCH ×2 (17:32→23:28)
[2016-11-10] MEDS: INSULIN REGULAR 100 UNIT in SODIUM CHLORIDE 0.9% 100 ML IV SCH (17:33)
[2016-11-10 17:40] LABS: Basophils % (A) 0 %; CH 32.8; CHCM 35.6; Eosinophils # (A) 0.2 k/uL (0-0.7); Eosinophils % (A) 2 %; HCT 32.9 % (39.0-53.0); HDW 2.87; HGB 11.4 gm/dL (13.0-17.5); Luc # (Auto) 0.08; Luc % (Auto) 1; Lymphocytes # (A) 1.6 k/uL (1.0-4.8); Lymphocytes % (A) 14 %; MCH 32.1 pg (25.0-35.0); MCHC 34.6 g/dL (31.0-37.0); MCV 92.6 fL (80.0-100.0); Mean Platelet Volume 6.5; Monocytes # (A) 0.7 k/uL (0-1.0); Monocytes % (A) 6 %; Neutrophils # (A) 8.5 k/uL (1.3-7.7); Neutrophils % (A) 77 %; RBC 3.55 m/uL (4.30-5.90); RDW 13.1 % (11.5-15.5); WBC 11.1 k/uL (3.8-10.6); WBC (Perox) 11.24
[2016-11-10 18:12] LABS: Glucose,Whole Blood 169 mg/dL (75-99)
[2016-11-10] MEDS ORDERED: HYDROmorphone 1 MG/ML 1 ML SYRINGE IVP PRN (18:45)
[2016-11-10 19:06] LABS: Glucose,Whole Blood 174 mg/dL (75-99)
[2016-11-10 20:20] LABS: Glucose,Whole Blood 174 mg/dL (75-99)
[2016-11-10 20:30] LABS: INR 1.3 (<1.1); Prothrombin Time 13.1 sec (9.0-12.0)
[2016-11-10 20:31] LABS: Partial Thromboplastin Time 28.7 sec (22.0-30.0)
[2016-11-10 20:54] LABS: Basophils % (A) 0 %; CHCM 35.7; Eosinophils % (A) 0 %; HCT 32.6 % (39.0-53.0); HDW 2.89; HGB 11.4 gm/dL (13.0-17.5); Luc # (Auto) 0.07; Luc % (Auto) 1; Lymphocytes # (A) 0.6 k/uL (1.0-4.8); Lymphocytes % (A) 6 %; MCH 32.5 pg (25.0-35.0); MCHC 35.1 g/dL (31.0-37.0); MCV 92.7 fL (80.0-100.0); Mean Platelet Volume 6.6; Monocytes # (A) 0.7 k/uL (0-1.0); Monocytes % (A) 7 %; Neutrophils # (A) 8.8 k/uL (1.3-7.7); Neutrophils % (A) 87 %; RBC 3.51 m/uL (4.30-5.90); WBC 10.2 k/uL (3.8-10.6); WBC (Perox) 10.65
[2016-11-10] MEDS: HYDROmorphone 1 MG/ML 1 ML SYRINGE IVP PRN (21:11)
[2016-11-10 21:22] LABS: Glucose,Whole Blood 172 mg/dL (75-99)
--- NOTE | 2016-11-10 21:43 | P.CRDCN ---
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 Subsequent cardiac catheterization revealed a long lesion in the left anterior descending coronary artery involving the proximal and mid portions. There is a septal branch that also has significant disease. Rest of the vessels were free of any significant occlusive disease. Patient was not felt to be a candidate for intervention percutaneously because of the length of the lesion. Patient underwent single-vessel bypass surgery with the GRADY graft to the LAD. Patient is just brought to the room and seems to be hemodynamically stable at this time. His maintaining sinus rhythm. We'll continue to follow him. Review of Systems As per the chart Past Medical History Past Medical History: Chest Pain / Angina, Diabetes Mellitus, Hyperlipidemia, Hypertension, Liver Disease Additional Past Medical History / Comment(s): diet control diabetic. Hepatitis C ( + )-states had some testing re-done on 11-07 to re-check History of Any Multi-Drug Resistant Organisms: None Reported Past Surgical History: Heart Catheterization Additional Past Surgical History / Comment(s): colonoscopies Past Anesthesia/Blood Transfusion Reactions: No Reported Reaction Past Psychological History: No Psychological Hx Reported Smoking Status: Former smoker Past Alcohol Use History: Occasional Additional Past Alcohol Use History / Comment(s): quit smoking 10 yrs. ago, smoked 1ppd on & off since teens prior to quitting Past Drug Use History: None Reported - Past Family History Mother Family Medical History: No Reported History Medications and Allergies Home Medications Medication Instructions Recorded Confirmed Type Gluc/Gregg-MSM#1/C/Robinson/Link/Bor 1 tab PO DAILY 11/01/16 11/10/16 History [Glucosamine-Chondroitin Tablet] Lactobacillus Acidophilus 1 tab PO DAILY 11/01/16 11/10/16 History [Acidophilus] Loratadine-Pseudoeph 10-240 mg 1 tab PO DAILY 11/01/16 11/10/16 History [Claritin-D 24 Hour] Montelukast Sodium [Singulair] 10 mg PO DAILY 11/01/16 11/10/16 History Multivitamins, Thera [Multivitamin 1 tab PO DAILY 11/01/16 11/10/16 History (formulary)] Aspirin 324 mg PO ONCE 11/10/16 11/10/16 History [place]-3 1,500 mg PO Q48H 11/10/16 11/10/16 History Allergies Allergy/AdvReac Type Severity Reaction Status Date / Time isosorbide Allergy headache & Verified 11/10/16 06:24 tingling Physical Exam Vitals: Vital Signs Temp Pulse Pulse Resp BP BP Pulse Ox 11/10/16 20:15 93 28 H 94 L 11/10/16 20:00 92 26 H 96 11/10/16 19:56 95 11/10/16 19:45 93 26 H 95 11/10/16 19:30 90 24 95 11/10/16 19:15 90 26 H 95 11/10/16 19:00 90 96 11/10/16 18:45 88 95 11/10/16 18:30 93 92 L 11/10/16 18:15 91 92 L 11/10/16 18:00 89 95 11/10/16 17:51 87 11/10/16 17:45 92 91 L 11/10/16 17:30 89 94 L 11/10/16 17:20 91 11/10/16 17:15 88 95 11/10/16 17:00 88 99 11/10/16 16:45 87 99 11/10/16 16:30 87 100 11/10/16 16:15 87 100 11/10/16 16:00 85 12 100 11/10/16 15:45 82 100 11/10/16 15:30 81 100 11/10/16 15:15 77 100 11/10/16 15:00 76 12 100 11/10/16 14:45 78 99 11/10/16 14:30 76 100 11/10/16 14:24 81 11/10/16 13:52 96.1 F L 11/10/16 06:15 97.6 F 59 L 18 120/64 124/66 97 Intake and Output 11/10/16 11/10/16 11/10/16 06:59 14:59 22:59 Intake Total 50 706.244 Output Total 1265 590 Balance -1215 116.244 Intake: IV 89 cardiac output 80 pressure bag 9 Intake, IV Titration 50 617.244 Amount Clevidipine Butyrate 25 59.0 mg In Empty Bag 1 bag @ 1 MG/HR 2 mls/hr IV .Q24H [facility] Rx#:[id number] Clevidipine Butyrate 25 20.6 mg In Empty Bag 1 bag @ Per Protocol IV .Q0M ONE Rx#:[id number] Insulin Regular 100 unit 3.569 In Sodium Chloride 0.9% 100 ml @ Per Protocol IV .Q0M [facility] Rx#:[id number] Lactated Ringers 1,000 ml 50 200 @ 50 mls/hr IV .Q20H [facility] Rx#:[id number] Potassium Chloride 20 meq 50 In Water For Injection 1 100ml.bag @ 50 mls/hr IVPB ONCE ONE Rx#: [id number] Propofol 500 mg In Empty 184.075 Bag 1 bag @ Titrate IV . Q0M [facility] Rx#:[id number] ceFAZolin 2 gm In Sodium 100 Chloride 0.9% 100 ml @ 100 mls/hr IVPB Q8HR [facility] Rx#:[id number] Output: Chest Tube Drainage 115 345 Chest Tube Mediastinal 85 235 Left Pleural/Mediastinal 30 110 Urine 350 245 Estimated Blood Loss 800 Other: Voiding Method Indwelling Catheter Weight 102.3 kg ABP, PAP, CO, CI - Last 8 Hours Arterial Blood Pressure 139/59 Arterial Blood Pressure 145/62 Arterial Blood Pressure 158/71 Arterial Blood Pressure 125/57 Arterial Blood Pressure 142/65 Arterial Blood Pressure 131/61 Arterial Blood Pressure 139/63 Arterial Blood Pressure 138/63 Arterial Blood Pressure 141/64 Arterial Blood Pressure 150/68 Arterial Blood Pressure 138/64 Arterial Blood Pressure 124/62 Arterial Blood Pressure 128/63 Arterial Blood Pressure 115/58 Arterial Blood Pressure 116/58 Arterial Blood Pressure 130/62 Arterial Blood Pressure 129/61 Arterial Blood Pressure 132/60 Arterial Blood Pressure 146/63 Arterial Blood Pressure 141/64 Arterial Blood Pressure 124/57 Arterial Blood Pressure 127/60 Arterial Blood Pressure 126/1 Arterial Blood Pressure 145/59 Arterial Blood Pressure 0/0 Pulmonary Artery Pressure 27/24 Pulmonary Artery Pressure 31/25 Pulmonary Artery Pressure 39/29 Pulmonary Artery Pressure 34/24 Pulmonary Artery Pressure 33/24 Pulmonary Artery Pressure 32/24 Pulmonary Artery Pressure 33/26 Pulmonary Artery Pressure 38/27 Pulmonary Artery Pressure 32/24 Pulmonary Artery Pressure 34/28 Pulmonary Artery Pressure 34/25 Pulmonary Artery Pressure 34/27 Pulmonary Artery Pressure 33/26 Pulmonary Artery Pressure 36/26 Pulmonary Artery Pressure 34/26 Pulmonary Artery Pressure 33/24 Pulmonary Artery Pressure 33/24 Pulmonary Artery Pressure 33/24 Pulmonary Artery Pressure 31/22 Pulmonary Artery Pressure 36/25 Pulmonary Artery Pressure 30/21 Pulmonary Artery Pressure 31/21 Pulmonary Artery Pressure 30/18 Pulmonary Artery Pressure 33/21 Pulmonary Artery Pressure 28/14 Cardiac Output 8.7 Cardiac Output 7.3 Cardiac Output 8.7 Cardiac Output 8.7 Cardiac Output 8.7 Cardiac Output 8.7 Cardiac Output 8.7 Cardiac Output 8.7 Cardiac Output 8.7 Cardiac Output 9.1 Cardiac Output 9.1 Cardiac Output 9.1 Cardiac Output 9.1 Cardiac Output 9.1 Cardiac Output 7.9 Cardiac Output 7.2 Cardiac Output 7.2 Cardiac Output 7.2 Cardiac Output 8.0 Cardiac Index 3.9 Cardiac Index 3.3 Cardiac Index 4.1 Cardiac Index 3.6 Cardiac Index 3.2 Cardiac Index 3.6 GENERAL EXAM: Patient is a sedated and intubated HEENT: Normocephalic. Normal reaction of pupils, equal size, normal range of extraocular motion. No erythema or exudates in the throat. NECK: No masses, no nuchal rigidity. CHEST: No chest wall deformity. LUNGS: Diminished breath sounds bilaterally HEART: S1 and S2 normal ABDOMEN: No hepatosplenomegaly, normal bowel sounds, no guarding or rigidity. SKIN: No rashes CENTRAL NERVOUS SYSTEM: Sedated EXTREMITIES: No cyanosis, clubbing or edema. Results 11/10/16 20:10 11/10/16 20:10 Cardiac Enzymes 11/10/16 Range/Units 14:30 AST 27 (17-59) U/L Coagulation 11/10/16 11/10/16 Range/Units 14:30 20:10 PT 14.6 H 13.1 H (9.0-12.0) sec APTT 33.0 H 28.7 (22.0-30.0) sec CBC 11/10/16 11/10/16 11/10/16 Range/Units 14:30 17:20 20:10 WBC 9.2 11.1 H 10.2 (3.8-10.6) k/uL RBC 3.46 L 3.55 L 3.51 L (4.30-5.90) m/uL Hgb 11.1 L D 11.4 L 11.4 L (13.0-17.5) gm/dL Hct 32.2 L 32.9 L 32.6 L (39.0-53.0) % Plt Count 146 L 195 180 (150-450) k/uL Comprehensive Metabolic Panel 11/10/16 11/10/16 Range/Units 14:30 20:10 Sodium 144 140 (137-145) mmol/L Potassium 3.7 4.0 (3.5-5.1) mmol/L Chloride 109 H 108 H (98-107) mmol/L Carbon Dioxide 25 22 (22-30) mmol/L BUN 16 (9-20) mg/dL Creatinine 0.80 (0.66-1.25) mg/dL Glucose 96 (74-99) mg/dL Calcium 8.4 (8.4-10.2) mg/dL AST 27 (17-59) U/L ALT 50 (21-72) U/L Alkaline Phosphatase 30 L (38-126) U/L Total Protein 5.5 L (6.3-8.2) g/dL Albumin 3.6 (3.5-5.0) g/dL Current Medications Generic Name Dose Route Start Last Admin Trade Name Freq PRN Reason Stop Dose Admin Hydrocodone Bitart/Acetaminophen 2 each 11/11/16 13:54 Cushing 5-325 PO Q4HR PRN Severe Pain Hydrocodone Bitart/Acetaminophen 1 each 11/11/16 13:54 [place]ushing 5-325 PO Q4HR PRN Moderate Pain Albuterol/Ipratropium 3 ml 11/10/16 16:00 11/10/16 19:51 Duoneb 0.5 Mg-3 Mg/3 Ml Soln INHALATION 3 ml RT-Q4H [facility]AYLA Administration Albuterol/Ipratropium 3 ml 11/11/16 13:55 Duoneb 0.5 Mg-3 Mg/3 Ml Soln INHALATION RT-Q2H PRN Shortness Of Breath Or Wheezing Atorvastatin Calcium 40 mg 11/11/16 12:00 Lipitor PO DAILY [facility] Benzocaine/Menthol 1 each 11/10/16 13:51 Cepacol Lozenge MUCOUS MEM Q2H PRN Sore Throat Bisacodyl 10 mg 11/11/16 13:55 Dulcolax RECTAL DAILY PRN Constipation Clopidogrel Bisulfate 75 mg 11/11/16 12:00 Plavix PO DAILY [facility] Heparin Sodium (Porcine) 5,000 unit 11/11/16 00:00 Heparin SQ Q8HR [facility] Hydromorphone HCl 1 mg 11/10/16 18:45 11/10/16 21:11 Dilaudid IVP 1 mg Q1HR PRN Administration Pain 6-10 Hydromorphone HCl 0.5 mg 11/10/16 18:45 Dilaudid IVP Q1HR PRN Pain Lactated Ringer's 1,000 mls @ 20 mls/hr 11/10/16 05:32 11/10/16 15:47 Lactated Ringers IV Not Given .Q24H [facility] Acetaminophen 1,000 mg/ IV 100 mls @ 400 mls/hr 11/10/16 18:00 11/10/16 17:32 Solution IVPB 11/11/16 18:01 400 mls/hr Q6HR [facility] Administration Albumin Human 250 ml/ IV 250 mls @ 250 mls/hr 11/10/16 13:51 Solution IVPB 11/12/16 13:52 Q1HR PRN For Volume Calcium Gluconate 2,000 mg/ 120 mls @ 100 mls/hr 11/10/16 13:51 Sodium Chloride IVPB 11/11/16 13:52 ONCE PRN Ionized Calcium less than 4.4 Clevidipine 25 mg/ IV Solution 50 mls @ 2 mls/hr 11/10/16 14:00 11/10/16 20: 20 IV 8 mg/hr .Q24H [facility] 16 mls/hr Protocol Administration 1 MG/HR Insulin Human Regular 100 unit 101 mls @ 0 mls/hr 11/10/16 14:15 11/10/16 19: 05 / Sodium Chloride IV 4 units/hr .Q0M [facility] 4.04 mls/hr Protocol Titration Per Protocol Lactated Ringer's 1,000 mls @ 50 mls/hr 11/10/16 14:00 11/10/16 15:59 Lactated Ringers IV 50 mls/hr .Q20H [facility] Administration Nitroglycerin/Dextrose 50 mg/ 250 mls @ 1.5 mls/hr 11/10/16 14:00 11/10/16 15 :48 IV Solution IV 50 mcg/min .Q24H [facility] 15 mls/hr 5 MCG/MIN Administration Propofol 500 mg/ IV Solution 50 mls @ 0 mls/hr 11/10/16 14:00 11/10/16 21:22 IV 60 mcg/kg/min .Q0M [facility] 36.82 mls/hr Protocol Administration Titrate Cefazolin Sodium 2 gm/ Sodium 100 mls @ 100 mls/hr 11/10/16 16:00 11/10/16 15 :49 Chloride IVPB 11/11/16 08:59 100 mls/hr Q8HR [facility] Administration Magnesium Hydroxide 2,400 mg 11/11/16 13:55 Milk Of Magnesia PO BID PRN Constipation Metoclopramide HCl 10 mg 11/10/16 13:51 Reglan IVP Q4H PRN Nausea And Vomiting Metoprolol Tartrate 12.5 mg 11/11/16 12:00 Lopressor PO BID [facility] Miscellaneous Information 1 each 11/10/16 13:51 Magnesium Per Protocol MISCELLANE DAILY PRN Per Protocol Protocol Miscellaneous Information 1 each 11/10/16 13:51 Phosphorus Per Protocol MISCELLANE DAILY PRN Per Protocol Protocol Miscellaneous Information 1 each 11/10/16 13:51 Potassium Per Protocol MISCELLANE DAILY PRN Per Protocol Protocol Morphine Sulfate 2 mg 11/10/16 13:51 11/10/16 17:31 Morphine Sulfate (Inj) IVP 2 mg Q2H PRN Administration Severe Pain Ondansetron HCl 4 mg 11/10/16 13:51 Zofran IVP Q6HR PRN Nausea And Vomiting Oxycodone HCl 10 mg 11/10/16 13:51 Oxyir PO 11/11/16 13:52 Q4H PRN Severe Pain Oxycodone HCl 5 mg 11/10/16 13:51 Oxyir PO 11/11/16 13:52 Q4H PRN Moderate Pain Pantoprazole Sodium 40 mg 11/11/16 09:00 Protonix IVP DAILY [facility] Senna/Docusate Sodium 2 each 11/11/16 21:00 Senokot-S PO HS [facility] Sodium Chloride 10 ml 11/10/16 21:00 11/10/16 21:11 Saline Flush IV 10 ml BID [facility] Administration Intake and Output 11/10/16 11/10/16 11/10/16 06:59 14:59 22:59 Intake Total 50 706.244 Output Total 1265 590 Balance -1215 116.244 Intake: IV 89 cardiac output 80 pressure bag 9 Intake, IV Titration 50 617.244 Amount Clevidipine Butyrate 25 59.0 mg In Empty Bag 1 bag @ 1 MG/HR 2 mls/hr IV .Q24H [facility] Rx#:[id number] Clevidipine Butyrate 25 20.6 mg In Empty Bag 1 bag @ Per Protocol IV .Q0M [facility] Rx#:[id number] Insulin Regular 100 unit 3.569 In Sodium Chloride 0.9% 100 ml @ Per Protocol IV .Q0M [facility] Rx#:[id number] Lactated Ringers 1,000 ml 50 200 @ 50 mls/hr IV .Q20H [facility] Rx#:[id number] Potassium Chloride 20 meq 50 In Water For Injection 1 100ml.bag @ 50 mls/hr IVPB ONCE [facility] Rx#: [id number] Propofol 500 mg In Empty 184.075 Bag 1 bag @ Titrate IV . Q0M [facility] Rx#:[id number] ceFAZolin 2 gm In Sodium 100 Chloride 0.9% 100 ml @ 100 mls/hr IVPB Q8HR [facility] Rx#:[id number] Output: Chest Tube Drainage 115 345 Chest Tube Mediastinal 85 235 Left Pleural/Mediastinal 30 110 Urine 350 245 Estimated Blood Loss 800 Other: Voiding Method Indwelling Catheter Weight 102.3 kg 11/10/16 20:10 11/10/16 20:10 Assessment and Plan (1) S/P CABG (coronary artery bypass graft) Status: Acute (2) CAD (coronary artery disease) Status: Acute (3) Diabetes Status: Acute Plan: Patient is status post a single vessel bypass surgery with the GRADY graft to LAD. Patient had off-pump bypass. Patient is doing well. Hemodynamically stable. We'll continue ICU management. No arrhythmias start detected so far. We will follow
[2016-11-10 22:09] LABS: Glucose,Whole Blood 160 mg/dL (75-99)
[2016-11-10 23:26] LABS: Glucose,Whole Blood 151 mg/dL (75-99)
[2016-11-10] MEDS: HEPARIN SODIUM,PORCINE 5,000 UNIT/ML 1 ML VIAL SQ SCH (23:28)
[2016-11-11 00:18] LABS: Glucose,Whole Blood 149 mg/dL (75-99)
[2016-11-11 00:22] LABS: ABG Base Excess -2.4 mmol/L; ABG HCO3 22 mmol/L (21-25); ABG PCO2 37 mmHg (35-45); ABG PH 7.39 (7.35-7.45); ABG PO2 55 mmHg (83-108); ABG TCO2 23 mmol/L (19-24)
[2016-11-11] MEDS: CLEVIDIPINE BUTYRATE 25 MG in EMPTY BAG 1 BAG IV SCH ×5 (00:42→09:04)
[2016-11-11 01:08] LABS: Glucose,Whole Blood 168 mg/dL (75-99)
[2016-11-11] MEDS: PROPOFOL 500 MG in EMPTY BAG 1 BAG IV SCH ×4 (01:10→07:45)
[2016-11-11 01:55] LABS: Glucose,Whole Blood 182 mg/dL (75-99)
[2016-11-11 02:04] LABS: ABG Base Excess -1.6 mmol/L; ABG HCO3 21 mmol/L (21-25); ABG PCO2 28 mmHg (35-45); ABG PO2 73 mmHg (83-108); ABG TCO2 22 mmol/L (19-24)
[2016-11-11 03:21] LABS: Glucose,Whole Blood 175 mg/dL (75-99)
[2016-11-11] MEDS: HYDROmorphone 1 MG/ML 1 ML SYRINGE IVP PRN (03:45)
[2016-11-11] MEDS: IPRATROPIUM-ALBUTEROL 3 ML NEB INHALATION SCH ×4 (03:55→11:12)
[2016-11-11 04:26] LABS: Glucose,Whole Blood 163 mg/dL (75-99)
[2016-11-11 04:34] LABS: Basophils % (A) 0 %; CHCM 36.7; Eosinophils % (A) 0 %; HCT 31.2 % (39.0-53.0); HDW 2.88; HGB 11.3 gm/dL (13.0-17.5); Luc # (Auto) 0.05; Luc % (Auto) 1; Lymphocytes # (A) 0.6 k/uL (1.0-4.8); Lymphocytes % (A) 6 %; MCH 32.8 pg (25.0-35.0); MCHC 36.2 g/dL (31.0-37.0); MCV 90.5 fL (80.0-100.0); Mean Platelet Volume 7.1; Monocytes # (A) 0.7 k/uL (0-1.0); Monocytes % (A) 8 %; Neutrophils # (A) 8.2 k/uL (1.3-7.7); Neutrophils % (A) 85 %; RBC 3.45 m/uL (4.30-5.90); RDW 12.9 % (11.5-15.5); WBC 9.6 k/uL (3.8-10.6); WBC (Perox) 10.36
[2016-11-11 04:48] LABS: Ionized Calcium 4.8 mg/dL (4.5-5.3)
[2016-11-11 05:00] LABS: ALT 40 U/L (21-72); AST 30 U/L (17-59); Alkaline Phosphatase 29 U/L (38-126); Anion Gap 6 mmol/L; Blood Urea Nitrogen 18 mg/dL (9-20); Calcium 8.5 mg/dL (8.4-10.2); Carbon Dioxide 26 mmol/L (22-30); Chloride 107 mmol/L (98-107); Glucose 144 mg/dL (74-99); Non-African American GFR(MDRD) >60 (>60 ml/min/1.73 sqM); Phosphorous 2.5 mg/dL (2.5-4.5); Potassium 3.7 mmol/L (3.5-5.1); Sodium 139 mmol/L (137-145); Total Bilirubin 0.7 mg/dL (0.2-1.3); Total Protein 5.4 g/dL (6.3-8.2)
[2016-11-11 05:12] LABS: Glucose,Whole Blood 159 mg/dL (75-99)
[2016-11-11 05:19] LABS: INR 1.4 (<1.1); Partial Thromboplastin Time 29.4 sec (22.0-30.0); Prothrombin Time 13.6 sec (9.0-12.0)
[2016-11-11] MEDS ORDERED: Potassium Replacement Protocol 1 EACH MISC MISCELLANE PRN (05:26)
[2016-11-11] MEDS: NITROGLYCERIN-D5W PMX 50 MG in DEXTROSE/WATER 1 250ML.BAG IV SCH (05:49)
[2016-11-11] MEDS: ACETAMINOPHEN IV (For NPO) 1,000 MG in EMPTY BAG 1 BAG IVPB SCH ×3 (05:53→18:21)
[2016-11-11] MEDS: MAGNESIUM SULFATE-D5W PMX 1 GM in DEXTROSE/WATER 1 100ML.BAG IVPB SCH ×2 (05:55→07:44)
[2016-11-11] MEDS ORDERED: POTASSIUM CHLORIDE ORAL LIQUID 40 MEQ/30 ML CUP NG-TUBE SCH (06:00)
[2016-11-11 06:20] LABS: Glucose,Whole Blood 161 mg/dL (75-99)
[2016-11-11 07:10] LABS: Glucose,Whole Blood 181 mg/dL (75-99)
--- NOTE | 2016-11-11 07:21 | XR ---
EXAMINATION TYPE: XR chest 1V portable DATE OF EXAM: 11/11/2016 6:34 AM Comparison: 11/10/2016 Clinical History: 66-year-old male postoperative cardiac surgery Findings: ET tube is satisfactory. NG tube courses below the diaphragm. Right IJ [place]-Y[place]asta catheter has its tip at the proximal interlobar pulmonary artery. Mediastinal drain is present. Left-sided chest tube als o visualized without appreciable pneumothorax. There is prominence to the pulmonary vasculature. Patc hy retrocardiac opacity persists. No significant pleural effusion. Impression: 1. Pulmonary vasculature appears somewhat cephalized; correlate to exclude mild pulmonary vascular co ngestion. 2. Stable patchy retrocardiac atelectasis.
--- NOTE | 2016-11-11 08:05 | OP ---
DATE OF SERVICE: 11/10/2016 SURGEON: George Villeda MD IMMIGRATION GUARD: Terry Rockwell and TOAN Thakkar and physician assistant sales center manager. PREOPERATIVE DIAGNOSIS: Single vessel coronary artery disease with subtotally occluded left anterior descending artery. POSTOPERATIVE DIAGNOSIS: Single vessel coronary artery disease with subtotally occluded left anterior descending artery. OPERATION: 1. Off-pump coronary artery bypass grafting x1 using the left internal mammary artery to the left anterior descending artery. 2. Intraoperative transesophageal echocardiogram. 3. Intraoperative graft flow measurement using the Medistim system. ANESTHESIA: ESTIMATED BLOOD LOSS: SPECIMENS REMOVED: COMPLICATIONS: OPERATIVE FINDINGS: INDICATION FOR SURGERY: Patient is a 66-year-old gentleman with past medical history of diabetes mellitus who has been complaining of occasional exertional angina. Cardiac catheterization showed subtotally occluded proximal LAD with a long stenosis not ideal for PTCA stenting. The rest of his coronaries had no significant lesions. Patient was referred for single vessel coronary artery bypass grafting that we plan to do on a beating heart. Patient is hepatitis C positive, but does not have stigmata of cirrhosis. Risks, benefits, and alternatives were discussed with him. He understood them and agreed to proceed. DESCRIPTION OF THE PROCEDURE: Patient in supine position. The right internal jugular [place]-Yokasta catheter and right radial arterial line were placed. Patient had normal PA pressure and good cardiac index. Subsequently, he was brought to the operating room where general endotracheal anesthesia was induced uneventfully. Patient received 2 grams of cefazolin intravenously. Lopez catheter was inserted. The chest, abdomen and both lower extremities were prepped and draped using ChloraPrep. Ioban was used to cover the skin. Transesophageal echocardiogram confirmed the preoperative finding of preserved left ventricular function and no significant valvular abnormality. Via a limited skin incision, a full median sternotomy was performed. The left everardo-sternum was elevated and the left internal mammary artery was harvested in a somewhat skeletonized fashion. The left pleura was intentionally opened in this process and drained with a 28 [place] chest tube. The right pleura remained grossly intact. Subsequently, the mediastinal fat was reflected over the pericardium was opened in an inverted T fashion. The pericardial cradle was created. Findings included a soft aorta and a normal-sized heart with calcific proximal LAD disease but soft mid LAD. Systemic heparinization to achieve an ACT above 250 seconds was administered. The ACT was repeated every 20 minutes and additional heparin given if needed. The mammary artery was double clipped distally and transected, had an excellent pulsatile flow in it and was around 1.7 mm in diameter. The Acrobat system along with the Xpose device and the mister blower were used to perform the surgery on a beating heart. A deep groove was made in the left pleural pericardial fat to accommodate the mammary artery medial to the lung and away from the posterior sternal table and the left anterior descending artery was retracted gently into the surgical view. Subsequently, the single distal anastomosis between the left internal mammary artery and the mid left anterior descending artery, which was opened, accepted a 1.5 mm shunt, was completed using Prolene 7-0 in continuous fashion. The shunt was removed before completing the anastomosis, which was well tolerated. Flow measurement revealed excellent parameters with a flow of 93 mL per minute, pulsatility index of 1.8 and diastolic filling of 80%. With that test dose and full dose protamine was given. The pericardial fat was loosely closed over the heart and the aorta. One single 36 [place] chest tube was left in the substernal space. After ensuring adequate hemostasis and hemodynamics and noting that the patient was a bit on the oozy side the sternum was approximated using 5 [id number] [place] cable after interposing fibrillar between the sternal edges. Thorough irrigation with cefazolin followed. The rest of the closure proceeded in layers. Skin glue was applied. Patient did not receive any blood bank product but he received around 400 mL of Cell Saver blood. He was transferred to the ICU in stable condition on low-dose nitroglycerin with normal EKG and excellent hemodynamics.
[2016-11-11 08:09] LABS: Glucose,Whole Blood 176 mg/dL (75-99)
[2016-11-11] MEDS: LACTATED RINGERS 1,000 ML IV SCH (08:14)
[2016-11-11] MEDS: PANTOPRAZOLE 40 MG/10 ML VIAL IVP SCH (08:17)
[2016-11-11] MEDS: HEPARIN SODIUM,PORCINE 5,000 UNIT/ML 1 ML VIAL SQ SCH ×2 (08:17→16:04)
[2016-11-11] MEDS: ASPIRIN 325 MG TAB PO SCH (08:17)
[2016-11-11] MEDS: ceFAZolin 2 GM in SODIUM CHLORIDE 0.9% 100 ML IVPB SCH (08:17)
--- NOTE | 2016-11-11 09:00 | P.PN ---
Subjective 66-year-old male who had a single-vessel off pump bypass. Patient is doing relatively well. There is some issues last night with the nurses, I decided to keep him on the ventilator until I was able to see him this morning. There are some issues related oxygenation. And anyway, the patient this morning is awake and alert. He still intubated. Did well on it so weaning trial. His weaning parameters were excellent including his vital capacity, tidal volume, negative inspiratory force, minute volume, and respiratory rate. In addition, his rapid shallow breathing index were excellent. He did pass his cuff leak. Objective - Vital Signs Vital signs: Vital Signs Temp 96.1 F L 11/10/16 13:52 Pulse 89 11/11/16 07:30 Resp 13 11/11/16 07:30 BP 97/58 11/11/16 05:00 Pulse Ox 95 11/11/16 07:30 Intake & Output 11/10/16 11/11/16 11/11/16 18:59 06:59 18:59 Intake Total 764.002 5718.024 502.678 Output Total 1725 1447 155 Balance -1159.663 591.024 347.678 Weight 100.6 kg Intake: IV 70 302 33 cardiac output 70 260 30 pressure bag 42 3 Intake, IV Titration 039.274 9609.024 469.678 Amount ACETAMINOPHEN IV (For NPO 200 ) 1,000 mg In Empty Bag 1 bag @ 400 mls/hr IVPB Q6HR [facility] Rx#:[id number] Albumin Human 5% 250 ml 250 In Empty Bag 1 bag @ 250 mls/hr IVPB Q1HR PRN Rx#: [id number] Clevidipine Butyrate 25 37.6 221.000 mg In Empty Bag 1 bag @ 1 MG/HR 2 mls/hr IV .Q24H [facility] Rx#:[id number] Clevidipine Butyrate 25 20.6 mg In Empty Bag 1 bag @ Per Protocol IV .Q0M [facility] Rx#:[id number] Insulin Regular 100 unit 2.155 44.809 8.939 In Sodium Chloride 0.9% 100 ml @ Per Protocol IV .Q0M [facility] Rx#:[id number] Lactated Ringers 1,000 ml 200 600 50 @ 50 mls/hr IV .Q20H [facility] Rx#:[id number] Magnesium Sulfate-D5w Pmx 100 1 gm In Dextrose/Water 1 100ml.bag @ 100 mls/hr IVPB Q1H [facility] Rx#: [id number] Nitroglycerin-D5w Pmx 50 345.25 mg In Dextrose/Water 1 250ml.bag @ 5 MCG/MIN 1.5 mls/hr IV .Q24H [facility] Rx#: [id number] Potassium Chloride 20 meq 50 In Water For Injection 1 100ml.bag @ 50 mls/hr IVPB ONCE ONE Rx#: [id number] Propofol 500 mg In Empty 84.982 224.965 60.739 Bag 1 bag @ Titrate IV . Q0M [facility] Rx#:[id number] ceFAZolin 2 gm In Sodium 100 100 Chloride 0.9% 100 ml @ 100 mls/hr IVPB Q8HR [facility] Rx#:[id number] Output: Chest Tube Drainage 390 418 20 Chest Tube Mediastinal 260 310 20 Left Pleural/Mediastinal 130 108 0 Gastric Drainage 400 100 Urine 535 629 35 Estimated Blood Loss 800 Other: Voiding Method Indwelling Catheter Indwelling Catheter ABP, PAP, CO, CI - Last Documented Arterial Blood Pressure 119/54 Pulmonary Artery Pressure 23/16 Cardiac Output 9.4 Cardiac Index 4.2 - Exam No acute distress, oriented 3. HEENT examination is grossly unremarkable. Mucous membranes are moist. No oral lesions. Neck supple. Full range of motion. No adenopathy or thyromegaly. Neck veins are flat. Cardiovascular examination reveals regular rhythm rate. S1-S2 normal. No S3- S4. No distinct murmurs noted. Lungs reveal few scattered rhonchi. No wheezes. No crackles. Breath sounds are diminished. Abdomen soft bowel sounds are heard. Extremities are intact. No cyanosis clubbing or edema. Skin is without rash or lesion. Brief neurologic examination is nonfocal. - Labs CBC & Chem 7: 11/11/16 04:20 11/11/16 04:20 Labs: Abnormal Lab Results - Last 24 Hours (Table) 11/03/16 11/10/16 11/10/16 Range/Units 12:39 10:46 12:06 WBC (3.8-10.6) k/uL RBC (4.30-5.90) m/uL Hgb (13.0-17.5) gm/dL Hct (39.0-53.0) % Plt Count (150-450) k/uL Neutrophils # (1.3-7.7) k/uL Lymphocytes # (1.0-4.8) k/uL PT (9.0-12.0) sec APTT (22.0-30.0) sec ABG pH (7.35-7.45) ABG pCO2 (35-45) mmHg ABG pO2 (83-108) mmHg ABG O2 Saturation (94-97) % Chloride (98-107) mmol/L Glucose (74-99) mg/dL POC Glucose (mg/dL) 120 H 125 H (75-99) mg/dL Alkaline Phosphatase (38-126) U/L Total Protein (6.3-8.2) g/dL Crossmatch See Detail 11/10/16 11/10/16 11/10/16 Range/Units 12:59 14:30 14:30 WBC (3.8-10.6) k/uL RBC 3.46 L (4.30-5.90) m/uL Hgb 11.1 L D (13.0-17.5) gm/dL Hct 32.2 L (39.0-53.0) % Plt Count 146 L (150-450) k/uL Neutrophils # (1.3-7.7) k/uL Lymphocytes # (1.0-4.8) k/uL PT (9.0-12.0) sec APTT (22.0-30.0) sec ABG pH (7.35-7.45) ABG pCO2 (35-45) mmHg ABG pO2 (83-108) mmHg ABG O2 Saturation (94-97) % Chloride 109 H (98-107) mmol/L Glucose (74-99) mg/dL POC Glucose (mg/dL) 113 H (75-99) mg/dL Alkaline Phosphatase 30 L (38-126) U/L Total Protein 5.5 L (6.3-8.2) g/dL Crossmatch 11/10/16 11/10/16 11/10/16 Range/Units 14:30 14:33 14:45 WBC (3.8-10.6) k/uL RBC (4.30-5.90) m/uL Hgb (13.0-17.5) gm/dL Hct (39.0-53.0) % Plt Count (150-450) k/uL Neutrophils # (1.3-7.7) k/uL Lymphocytes # (1.0-4.8) k/uL PT 14.6 H (9.0-12.0) sec APTT 33.0 H (22.0-30.0) sec ABG pH (7.35-7.45) ABG pCO2 (35-45) mmHg ABG pO2 135 H (83-108) mmHg ABG O2 Saturation 98.9 H (94-97) % Chloride (98-107) mmol/L Glucose (74-99) mg/dL POC Glucose (mg/dL) 106 H (75-99) mg/dL Alkaline Phosphatase (38-126) U/L Total Protein (6.3-8.2) g/dL Crossmatch 11/10/16 11/10/16 11/10/16 Range/Units 14:57 16:35 17:11 WBC (3.8-10.6) k/uL RBC (4.30-5.90) m/uL Hgb (13.0-17.5) gm/dL Hct (39.0-53.0) % Plt Count (150-450) k/uL Neutrophils # (1.3-7.7) k/uL Lymphocytes # (1.0-4.8) k/uL PT (9.0-12.0) sec APTT (22.0-30.0) sec ABG pH (7.35-7.45) ABG pCO2 (35-45) mmHg ABG pO2 (83-108) mmHg ABG O2 Saturation (94-97) % Chloride (98-107) mmol/L Glucose (74-99) mg/dL POC Glucose (mg/dL) 109 H 113 H 155 H (75-99) mg/dL Alkaline Phosphatase (38-126) U/L Total Protein (6.3-8.2) g/dL Crossmatch 11/10/16 11/10/16 11/10/16 Range/Units 17:20 18:10 19:03 WBC 11.1 H (3.8-10.6) k/uL RBC 3.55 L (4.30-5.90) m/uL Hgb 11.4 L (13.0-17.5) gm/dL Hct 32.9 L (39.0-53.0) % Plt Count (150-450) k/uL Neutrophils # 8.5 H (1.3-7.7) k/uL Lymphocytes # (1.0-4.8) k/uL PT (9.0-12.0) sec APTT (22.0-30.0) sec ABG pH (7.35-7.45) ABG pCO2 (35-45) mmHg ABG pO2 (83-108) mmHg ABG O2 Saturation (94-97) % Chloride (98-107) mmol/L Glucose (74-99) mg/dL POC Glucose (mg/dL) 169 H 174 H (75-99) mg/dL Alkaline Phosphatase (38-126) U/L Total Protein (6.3-8.2) g/dL Crossmatch 11/10/16 11/10/16 11/10/16 Range/Units 20:10 20:10 20:10 WBC (3.8-10.6) k/uL RBC (4.30-5.90) m/uL Hgb (13.0-17.5) gm/dL Hct (39.0-53.0) % Plt Count (150-450) k/uL Neutrophils # (1.3-7.7) k/uL Lymphocytes # (1.0-4.8) k/uL PT 13.1 H (9.0-12.0) sec APTT (22.0-30.0) sec ABG pH (7.35-7.45) ABG pCO2 (35-45) mmHg ABG pO2 (83-108) mmHg ABG O2 Saturation (94-97) % Chloride 108 H (98-107) mmol/L Glucose (74-99) mg/dL POC Glucose (mg/dL) 174 H (75-99) mg/dL Alkaline Phosphatase (38-126) U/L Total Protein (6.3-8.2) g/dL Crossmatch 11/10/16 11/10/16 11/10/16 Range/Units 20:10 21:19 22:07 WBC (3.8-10.6) k/uL RBC 3.51 L (4.30-5.90) m/uL Hgb 11.4 L (13.0-17.5) gm/dL Hct 32.6 L (39.0-53.0) % Plt Count (150-450) k/uL Neutrophils # 8.8 H (1.3-7.7) k/uL Lymphocytes # 0.6 L (1.0-4.8) k/uL PT (9.0-12.0) sec APTT (22.0-30.0) sec ABG pH (7.35-7.45) ABG pCO2 (35-45) mmHg ABG pO2 (83-108) mmHg ABG O2 Saturation (94-97) % Chloride (98-107) mmol/L Glucose (74-99) mg/dL POC Glucose (mg/dL) 172 H 160 H (75-99) mg/dL Alkaline Phosphatase (38-126) U/L Total Protein (6.3-8.2) g/dL Crossmatch 11/10/16 11/11/16 11/11/16 Range/Units 23:20 00:11 00:14 WBC (3.8-10.6) k/uL RBC (4.30-5.90) m/uL Hgb (13.0-17.5) gm/dL Hct (39.0-53.0) % Plt Count (150-450) k/uL Neutrophils # (1.3-7.7) k/uL Lymphocytes # (1.0-4.8) k/uL PT (9.0-12.0) sec APTT (22.0-30.0) sec ABG pH (7.35-7.45) ABG pCO2 (35-45) mmHg ABG pO2 55 L (83-108) mmHg ABG O2 Saturation 88.0 L (94-97) % Chloride (98-107) mmol/L Glucose (74-99) mg/dL POC Glucose (mg/dL) 151 H 149 H (75-99) mg/dL Alkaline Phosphatase (38-126) U/L Total Protein (6.3-8.2) g/dL Crossmatch 11/11/16 11/11/16 11/11/16 Range/Units 01:04 01:53 01:53 WBC (3.8-10.6) k/uL RBC (4.30-5.90) m/uL Hgb (13.0-17.5) gm/dL Hct (39.0-53.0) % Plt Count (150-450) k/uL Neutrophils # (1.3-7.7) k/uL Lymphocytes # (1.0-4.8) k/uL PT (9.0-12.0) sec APTT (22.0-30.0) sec ABG pH 7.50 H (7.35-7.45) ABG pCO2 28 L (35-45) mmHg ABG pO2 73 L (83-108) mmHg ABG O2 Saturation (94-97) % Chloride (98-107) mmol/L Glucose (74-99) mg/dL POC Glucose (mg/dL) 168 H 182 H (75-99) mg/dL Alkaline Phosphatase (38-126) U/L Total Protein (6.3-8.2) g/dL Crossmatch 11/11/16 11/11/16 11/11/16 Range/Units 03:11 04:20 04:20 WBC (3.8-10.6) k/uL RBC 3.45 L (4.30-5.90) m/uL Hgb 11.3 L (13.0-17.5) gm/dL Hct 31.2 L (39.0-53.0) % Plt Count (150-450) k/uL Neutrophils # 8.2 H (1.3-7.7) k/uL Lymphocytes # 0.6 L (1.0-4.8) k/uL PT (9.0-12.0) sec APTT (22.0-30.0) sec ABG pH (7.35-7.45) ABG pCO2 (35-45) mmHg ABG pO2 (83-108) mmHg ABG O2 Saturation (94-97) % Chloride (98-107) mmol/L Glucose 144 H (74-99) mg/dL POC Glucose (mg/dL) 175 H (75-99) mg/dL Alkaline Phosphatase 29 L (38-126) U/L Total Protein 5.4 L (6.3-8.2) g/dL Crossmatch 11/11/16 11/11/16 11/11/16 Range/Units 04:20 04:20 05:08 WBC (3.8-10.6) k/uL RBC (4.30-5.90) m/uL Hgb (13.0-17.5) gm/dL Hct (39.0-53.0) % Plt Count (150-450) k/uL Neutrophils # (1.3-7.7) k/uL Lymphocytes # (1.0-4.8) k/uL PT 13.6 H (9.0-12.0) sec APTT (22.0-30.0) sec ABG pH (7.35-7.45) ABG pCO2 (35-45) mmHg ABG pO2 (83-108) mmHg ABG O2 Saturation (94-97) % Chloride (98-107) mmol/L Glucose (74-99) mg/dL POC Glucose (mg/dL) 163 H 159 H (75-99) mg/dL Alkaline Phosphatase (38-126) U/L Total Protein (6.3-8.2) g/dL Crossmatch 11/11/16 11/11/16 11/11/16 Range/Units 06:13 07:05 08:07 WBC (3.8-10.6) k/uL RBC (4.30-5.90) m/uL Hgb (13.0-17.5) gm/dL Hct (39.0-53.0) % Plt Count (150-450) k/uL Neutrophils # (1.3-7.7) k/uL Lymphocytes # (1.0-4.8) k/uL PT (9.0-12.0) sec APTT (22.0-30.0) sec ABG pH (7.35-7.45) ABG pCO2 (35-45) mmHg ABG pO2 (83-108) mmHg ABG O2 Saturation (94-97) % Chloride (98-107) mmol/L Glucose (74-99) mg/dL POC Glucose (mg/dL) 161 H 181 H 176 H (75-99) mg/dL Alkaline Phosphatase (38-126) U/L Total Protein (6.3-8.2) g/dL Crossmatch Assessment and Plan (1) Hx of CABG Status: Acute (2) Diabetes Status: Acute Plan: Plan dated 11/10/2016 Articulate the chest x-ray. We'll review the blood gases. We'll make adjustments of ventilator as required. The patient is currently on a PEEP of 10. I've asked the nurse to drop the FiO2 by 10% increments until the FiO2 is 50%. At that point. Can be dropped from 10-5. At that point, the patient is awake and alert we can start the weaning process. We'll make sure the patient' s also on updrafts. Additional recommendations suggestions are forthcoming. The x-ray was reviewed. Plan dated 11/11/2016 The patient's weaning parameters are excellent. He passes cuff leak test. His rapid shallow breathing index was low. The patient be extubated. We'll continue with breathing treatments and incentive spirometry. We'll encourage in encourage deep breathing. No additional recommendations are made. Prognosis is guarded. Time with Patient: Greater than 30
[2016-11-11 09:14] LABS: Glucose,Whole Blood 174 mg/dL (75-99)
[2016-11-11] MEDS ORDERED: FUROSEMIDE 10 MG/ML 2 ML VIAL IV ONE (09:53)
[2016-11-11] MEDS ORDERED: METOPROLOL TARTRATE 12.5 MG TAB PO STA (09:57)
--- NOTE | 2016-11-11 09:59 | P.PN ---
Progress Note - Text CV Surgery Nursing Principal diagnosis: POD: #1, status post elective off pump coronary artery bypass grafting surgery 1, left internal mammary artery placed to his left anterior descending coronary artery. Intraoperative transesophageal echocardiogram. Patient remains intubated with mechanical ventilator support, moving all 4 extremities appropriately. He remained sedated on Diprivan drip at 30 mcg/kg/ m. He shook his head no when asking if he was having any pain or discomfort. Vital Signs: Afebrile, current temperature is 99.9F Vital Signs - 24 hr 11/10/16 11/10/16 11/10/16 13:52 14:24 14:30 Temperature 96.1 F L Pulse Rate 81 76 Respiratory Rate Blood Pressure O2 Sat by Pulse 100 Oximetry 11/10/16 11/10/16 11/10/16 14:45 15:00 15:15 Temperature Pulse Rate 78 76 77 Respiratory 12 Rate Blood Pressure O2 Sat by Pulse 99 100 100 Oximetry 11/10/16 11/10/16 11/10/16 15:30 15:45 16:00 Temperature Pulse Rate 81 82 85 Respiratory 12 Rate Blood Pressure O2 Sat by Pulse 100 100 100 Oximetry 11/10/16 11/10/16 11/10/16 16:15 16:30 16:45 Temperature Pulse Rate 87 87 87 Respiratory Rate Blood Pressure O2 Sat by Pulse 100 100 99 Oximetry 11/10/16 11/10/16 11/10/16 17:00 17:15 17:20 Temperature Pulse Rate 88 88 91 Respiratory Rate Blood Pressure O2 Sat by Pulse 99 95 Oximetry 11/10/16 11/10/16 11/10/16 17:30 17:45 17:51 Temperature Pulse Rate 89 92 87 Respiratory Rate Blood Pressure O2 Sat by Pulse 94 L 91 L Oximetry 11/10/16 11/10/16 11/10/16 18:00 18:15 18:30 Temperature Pulse Rate 89 91 93 Respiratory Rate Blood Pressure O2 Sat by Pulse 95 92 L 92 L Oximetry 11/10/16 11/10/16 11/10/16 18:45 19:00 19:15 Temperature Pulse Rate 88 90 90 Respiratory 26 H Rate Blood Pressure O2 Sat by Pulse 95 96 95 Oximetry 11/10/16 11/10/16 11/10/16 19:30 19:45 19:56 Temperature Pulse Rate 90 93 95 Respiratory 24 26 H Rate Blood Pressure O2 Sat by Pulse 95 95 Oximetry 11/10/16 11/10/16 11/10/16 20:00 20:15 20:30 Temperature Pulse Rate 92 93 95 Respiratory 14 28 H 11 L Rate Blood Pressure 97/70 O2 Sat by Pulse 94 L 94 L 92 L Oximetry 11/10/16 11/10/16 11/10/16 20:45 21:00 21:15 Temperature Pulse Rate 99 95 95 Respiratory 14 12 12 Rate Blood Pressure 106/61 O2 Sat by Pulse 92 L 93 L 94 L Oximetry 11/10/16 11/10/16 11/10/16 21:30 21:45 22:00 Temperature Pulse Rate 97 99 99 Respiratory 9 L 12 11 L Rate Blood Pressure 106/61 O2 Sat by Pulse 93 L 93 L 94 L Oximetry 11/10/16 11/10/16 11/10/16 22:15 22:30 22:45 Temperature Pulse Rate 99 97 99 Respiratory 12 13 14 Rate Blood Pressure 97/60 O2 Sat by Pulse 95 95 95 Oximetry 11/10/16 11/10/16 11/10/16 23:00 23:15 23:30 Temperature Pulse Rate 96 95 96 Respiratory 13 13 14 Rate Blood Pressure O2 Sat by Pulse 94 L 94 L 94 L Oximetry 11/10/16 11/11/16 11/11/16 23:34 00:00 00:30 Temperature Pulse Rate 95 93 93 Respiratory 13 16 17 Rate Blood Pressure O2 Sat by Pulse 94 L 94 L 94 L Oximetry 11/11/16 11/11/16 11/11/16 01:00 01:30 02:00 Temperature Pulse Rate 93 94 94 Respiratory 16 16 31 H Rate Blood Pressure 101/56 O2 Sat by Pulse 94 L 93 L 93 L Oximetry 11/11/16 11/11/16 11/11/16 02:30 03:00 03:30 Temperature Pulse Rate 92 90 90 Respiratory 16 16 17 Rate Blood Pressure O2 Sat by Pulse 94 L 95 95 Oximetry 11/11/16 11/11/16 11/11/16 03:46 03:57 04:00 Temperature Pulse Rate 86 90 90 Respiratory 12 Rate Blood Pressure O2 Sat by Pulse 92 L Oximetry 11/11/16 11/11/16 11/11/16 04:30 05:00 05:30 Temperature Pulse Rate 93 92 84 Respiratory 12 12 32 H Rate Blood Pressure 97/58 O2 Sat by Pulse 94 L 95 95 Oximetry 11/11/16 11/11/16 11/11/16 06:00 06:30 07:00 Temperature Pulse Rate 87 92 86 Respiratory 12 13 18 Rate Blood Pressure O2 Sat by Pulse 95 95 94 L Oximetry 11/11/16 07:30 Temperature Pulse Rate 89 Respiratory 13 Rate Blood Pressure O2 Sat by Pulse 95 Oximetry ABP, PAP, CO, CI - Last 8 Hours Arterial Blood Pressure 119/54 Arterial Blood Pressure 126/55 Arterial Blood Pressure 125/51 Arterial Blood Pressure 130/54 Arterial Blood Pressure 132/57 Arterial Blood Pressure 123/53 Arterial Blood Pressure 125/53 Arterial Blood Pressure 124/58 Arterial Blood Pressure 129/57 Arterial Blood Pressure 130/59 Arterial Blood Pressure 117/55 Arterial Blood Pressure 113/55 Arterial Blood Pressure 105/54 Arterial Blood Pressure 123/58 Arterial Blood Pressure 114/53 Pulmonary Artery Pressure 23/16 Pulmonary Artery Pressure 24/16 Pulmonary Artery Pressure 21/14 Pulmonary Artery Pressure 26/17 Pulmonary Artery Pressure 26/19 Pulmonary Artery Pressure 24/18 Pulmonary Artery Pressure 25/18 Pulmonary Artery Pressure 27/19 Pulmonary Artery Pressure 24/17 Pulmonary Artery Pressure 26/18 Pulmonary Artery Pressure 25/18 Pulmonary Artery Pressure 27/16 Pulmonary Artery Pressure 26/19 Pulmonary Artery Pressure 28/20 Pulmonary Artery Pressure 27/19 Cardiac Output 9.4 Cardiac Output 7.3 Cardiac Output 7.3 Cardiac Output 8.4 Cardiac Output 9.5 Cardiac Index 4.2 Cardiac Index 3.3 Cardiac Index 3.3 Cardiac Index 3.8 Cardiac Index 4.3 Labs: Short CBC 11/10/16 11/10/16 11/10/16 Range/Units 14:30 17:20 20:10 WBC 9.2 11.1 H 10.2 (3.8-10.6) k/uL Hgb 11.1 L D 11.4 L 11.4 L (13.0-17.5) gm/dL Hct 32.2 L 32.9 L 32.6 L (39.0-53.0) % Plt Count 146 L 195 180 (150-450) k/uL Neutrophils # 7.0 8.5 H 8.8 H (1.3-7.7) k/uL 11/11/16 Range/Units 04:20 WBC 9.6 (3.8-10.6) k/uL Hgb 11.3 L (13.0-17.5) gm/dL Hct 31.2 L (39.0-53.0) % Plt Count 168 (150-450) k/uL Neutrophils # 8.2 H (1.3-7.7) k/uL BMP 11/10/16 11/10/16 11/11/16 14:30 20:10 04:20 Sodium 144 140 139 Potassium 3.7 4.0 3.7 Chloride 109 H 108 H 107 Carbon Dioxide 25 22 26 BUN 16 18 Creatinine 0.80 0.80 Glucose 96 144 H Calcium 8.4 8.5 Liver Function 11/10/16 11/11/16 Range/Units 14:30 04:20 Total Bilirubin 0.8 0.7 (0.2-1.3) mg/dL AST 27 30 (17-59) U/L ALT 50 40 (21-72) U/L Alkaline Phosphatase 30 L 29 L (38-126) U/L Albumin 3.6 3.6 (3.5-5.0) g/dL ABG ABG pH 7.50 (7.35-7.45) H 11/11/16 01:53 ABG pCO2 28 mmHg (35-45) L 11/11/16 01:53 ABG pO2 73 mmHg (83-108) L 11/11/16 01:53 ABG O2 Saturation 96.0 % (94-97) 11/11/16 01:53 PT/INR, D-dimer PT 13.6 sec (9.0-12.0) H 11/11/16 04:20 INR 1.4 (<1.1) 11/11/16 04:20 IV Fluids: Lactated Ringer's at 50 mL per hour Nitroglycerin at 50 mcg/m Clevidipine at 12 mg per hour Insulin drip at 5 units per hour Diprivan drip at 30 g kilogram per minute Cardiac output: 9.4 Cardiac index: 4.2 Pulmonary artery pressures: 24/16 CVP: 10 Lungs: Essentially clear throughout, diminished bilateral bases. Respirations are unlabored with mechanical ventilator support. Current ventilator settings are as follows: AC 12, TV 500, FiO2 50%, PEEP 5. O2 sat: 96% with mechanical ventilator support. Current FiO2 setting is 50%. Heart: S1S2, regular rhythm and rate, negative for S3, gallop or murmur. Bedside telemetry showing normal sinus rhythm heart rate 89. Sternum stable, chest incision clean with medline Silver dressing clean and dry. Heart hugger in place. Knee-high PRADEEP hose and sequential compression devices in place to bilateral lower extremities. Abdomen: Soft, Positive bowel sounds present in all 4 quadrants. OG tube in place, 500 mL output in the last 12 hours. CBGs: 97-182 mg/dL in the last 24 hours. U/O: Adequate, Lopez catheter for accurate I&O. 350 mL output in the last 8 hours. Chest Tubes: Mediastinal chest tube without air leak, 150 mL of thin serosanguineous drainage in the last 8 hours, 600 mL output since surgery. Left pleural chest tube without air leak, 65 mL of thin serosanguineous output in the last 8 hours, 250 mL output since surgery. The chest tubes remained to - 20 cm wall suction. 24 hr Total: Intake & Output 11/09/16 11/10/16 11/11/16 11/12/16 06:59 06:59 06:59 06:59 Intake Total 2603.361 485.963 Output Total 3172 155 Balance -568.639 330.963 Weight 99.79 kg 102.3 kg 100.6 kg Active Medications Hydrocodone Bitart/Acetaminophen ([place] 5-325) 2 each PO Q4HR PRN PRN Reason: Severe Pain Hydrocodone Bitart/Acetaminophen ([place] 5-325) 1 each PO Q4HR PRN PRN Reason: Moderate Pain Albuterol/Ipratropium (Duoneb 0.5 Mg-3 Mg/3 Ml Soln) 3 ml INHALATION RT-Q4H [facility] Last Admin: 11/11/16 03:55 Dose: 3 ml Albuterol/Ipratropium (Duoneb 0.5 Mg-3 Mg/3 Ml Soln) 3 ml INHALATION RT-Q2H PRN PRN Reason: Shortness Of Breath Or Wheezing Aspirin (Aspirin) 325 mg PO DAILY [facility] Atorvastatin Calcium (Lipitor) 40 mg PO DAILY [facility] Benzocaine/Menthol (Cepacol Lozenge) 1 each MUCOUS MEM Q2H PRN PRN Reason: Sore Throat Bisacodyl (Dulcolax) 10 mg RECTAL DAILY PRN PRN Reason: Constipation Clopidogrel Bisulfate (Plavix) 75 mg PO DAILY [facility] Heparin Sodium (Porcine) (Heparin) 5,000 unit SQ Q8HR [facility] Last Admin: 11/10/16 23:28 Dose: 5,000 unit Hydromorphone HCl (Dilaudid) 1 mg IVP Q1HR PRN PRN Reason: Pain 6-10 Last Admin: 11/11/16 03:45 Dose: 1 mg Hydromorphone HCl (Dilaudid) 0.5 mg IVP Q1HR PRN PRN Reason: Pain Lactated Ringer's (Lactated Ringers) 1,000 mls @ 20 mls/hr IV .Q24H [facility] Last Admin: 11/10/16 15:47 Dose: Not Given Acetaminophen 1,000 mg/ IV (Solution) 100 mls @ 400 mls/hr IVPB Q6HR [facility] Stop: 11/11/16 18:01 Last Admin: 11/11/16 05:53 Dose: 400 mls/hr Albumin Human 250 ml/ IV (Solution) 250 mls @ 250 mls/hr IVPB Q1HR PRN PRN Reason: For Volume Stop: 11/12/16 13:52 Last Admin: 11/11/16 06:38 Dose: 250 mls/hr Calcium Gluconate 2,000 mg/ (Sodium Chloride) 120 mls @ 100 mls/hr IVPB ONCE PRN PRN Reason: Ionized Calcium less than 4.4 Stop: 11/11/16 13:52 Clevidipine 25 mg/ IV Solution 50 mls @ 2 mls/hr IV .Q24H [facility]; 1 MG/HR PRN Reason: Protocol Last Admin: 11/11/16 06:26 Dose: 12 mg/hr, 24 mls/hr Insulin Human Regular 100 unit (/ Sodium Chloride) 101 mls @ 0 mls/hr IV .Q0M [facility]; Per Protocol PRN Reason: Protocol Last Titration: 11/11/16 07:09 Dose: 5 units/hr, 5.05 mls/hr Lactated Ringer's (Lactated Ringers) 1,000 mls @ 50 mls/hr IV .Q20H [facility] Last Admin: 11/10/16 15:59 Dose: 50 mls/hr Nitroglycerin/Dextrose 50 mg/ (IV Solution) 250 mls @ 1.5 mls/hr IV .Q24H MIKAYLA PRN Reason: 5 MCG/MIN Last Admin: 11/11/16 05:49 Dose: 50 mcg/min, 15 mls/hr Propofol 500 mg/ IV Solution 50 mls @ 0 mls/hr IV .Q0M [facility]; Titrate PRN Reason: Protocol Last Admin: 11/11/16 07:45 Dose: 30 mcg/kg/min, 18.41 mls/hr Cefazolin Sodium 2 gm/ Sodium (Chloride) 100 mls @ 100 mls/hr IVPB Q8HR [facility] Stop: 11/11/16 08:59 Last Admin: 11/10/16 23:28 Dose: 100 mls/hr Magnesium Hydroxide (Milk Of Magnesia) 2,400 mg PO BID PRN PRN Reason: Constipation Metoclopramide HCl (Reglan) 10 mg IVP Q4H PRN PRN Reason: Nausea And Vomiting Metoprolol Tartrate (Lopressor) 12.5 mg PO BID [facility] Miscellaneous Information (Magnesium Per Protocol) 1 each MISCELLANE DAILY PRN ; Protocol PRN Reason: Per Protocol Miscellaneous Information (Phosphorus Per Protocol) 1 each MISCELLANE DAILY PRN ; Protocol PRN Reason: Per Protocol Miscellaneous Information (Potassium Per Protocol) 1 each MISCELLANE DAILY PRN ; Protocol PRN Reason: Per Protocol Morphine Sulfate (Morphine Sulfate (Inj)) 2 mg IVP Q2H PRN PRN Reason: Severe Pain Last Admin: 11/10/16 17:31 Dose: 2 mg Ondansetron HCl (Zofran) 4 mg IVP Q6HR PRN PRN Reason: Nausea And Vomiting Oxycodone HCl (Oxyir) 10 mg PO Q4H PRN PRN Reason: Severe Pain Stop: 11/11/16 13:52 Oxycodone HCl (Oxyir) 5 mg PO Q4H PRN PRN Reason: Moderate Pain Stop: 11/11/16 13:52 Pantoprazole Sodium (Protonix) 40 mg IVP DAILY [facility] Senna/Docusate Sodium (Senokot-S) 2 each PO HS [facility] Sodium Chloride (Saline Flush) 10 ml IV BID [facility] Last Admin: 11/10/16 21:11 Dose: 10 ml Plan: 1. Continue aspirin, statin, subcutaneous heparin, Plavix, and increase metoprolol to 25 mg by mouth twice a day 2. Wean to extubate, pulmonary and ventilator management per Dr. Leon. 3. Continue insulin drip per protocol, medical management per Dr. Cohen. 4. DVT and GI prophylaxis in place. 5. Repeat CBC, CMP, portable chest x-ray in a.m. 6. Lasix 20 mg IV 1 now. 7. Removal of [place] catheter, place Cordis to continuous CVP monitoring. 8. Increase activity level as tolerated once extubated, physical therapy to follow. 9. More recommendations as patient progresses.
[2016-11-11 10:01] LABS: ABG PH 7.49 (7.35-7.45)
[2016-11-11 10:02] LABS: ABG Base Excess -1.8 mmol/L; ABG HCO3 21 mmol/L (21-25); ABG Oxygen Saturation 95.3 % (94-97); ABG PCO2 28 mmHg (35-45); ABG PO2 69 mmHg (83-108); ABG TCO2 22 mmol/L (19-24)
[2016-11-11 10:18] LABS: Glucose,Whole Blood 163 mg/dL (75-99)
[2016-11-11] MEDS: ATORVASTATIN 40 MG TAB PO SCH (11:22)
[2016-11-11] MEDS: CLOPIDOGREL 75 MG TAB PO SCH (11:22)
[2016-11-11] MEDS ORDERED: METOPROLOL TARTRATE 12.5 MG TAB PO SCH (12:00)
[2016-11-11 12:23] LABS: Glucose,Whole Blood 139 mg/dL (75-99)
[2016-11-11] MEDS ORDERED: HYDROcodone/APAP 5-325MG 1 EACH TAB PO PRN (13:54)
[2016-11-11] MEDS ORDERED: BISACODYL 10 MG SUPP RECTAL PRN (13:55)
[2016-11-11] MEDS ORDERED: IPRATROPIUM-ALBUTEROL 3 ML NEB INHALATION PRN (13:55)
[2016-11-11] MEDS ORDERED: MAGNESIUM HYDROXIDE 2,400 MG/10 ML CUP PO PRN (13:55)
[2016-11-11 13:58] LABS: Glucose,Whole Blood 104 mg/dL (75-99)
--- NOTE | 2016-11-11 15:38 | P.PN ---
Subjective Principal diagnosis: Status post CABG This 66-year-old gentleman underwent single-vessel bypass surgery. Patient is clinically stable. He is extubated and sitting in the chair. His vital signs are stable. Chest x-ray shows stable findings. No arrhythmias are detected Objective - Vital Signs Vital signs: Vital Signs Temp 96.1 F L 11/10/16 13:52 Pulse 77 11/11/16 15:00 Resp 25 H 11/11/16 15:00 BP 97/58 11/11/16 05:00 Pulse Ox 99 11/11/16 15:00 Intake & Output 11/10/16 11/11/16 11/11/16 18:59 06:59 18:59 Intake Total 255.124 0581.024 1387.919 Output Total 1725 1447 1490 Balance -1159.663 591.024 -102.081 Weight 100.6 kg 100.6 kg Intake: IV 70 302 42 cardiac output 70 260 30 pressure bag 42 12 Intake, IV Titration 247.292 6190.024 1225.919 Amount ACETAMINOPHEN IV (For NPO 200 100 ) 1,000 mg In Empty Bag 1 bag @ 400 mls/hr IVPB Q6HR [facility] Rx#:[id number] Albumin Human 5% 250 ml 250 In Empty Bag 1 bag @ 250 mls/hr IVPB Q1HR PRN Rx#: [id number] Clevidipine Butyrate 25 37.6 221.000 100 mg In Empty Bag 1 bag @ 1 MG/HR 2 mls/hr IV .Q24H [facility] Rx#:[id number] Clevidipine Butyrate 25 20.6 mg In Empty Bag 1 bag @ Per Protocol IV .Q0M ONE Rx#:[id number] Insulin Regular 100 unit 2.155 44.809 36.680 In Sodium Chloride 0.9% 100 ml @ Per Protocol IV .Q0M [facility] Rx#:[id number] Lactated Ringers 1,000 ml 200 600 280 @ 50 mls/hr IV .Q20H [facility] Rx#:[id number] Magnesium Sulfate-D5w Pmx 200 1 gm In Dextrose/Water 1 100ml.bag @ 100 mls/hr IVPB Q1H [facility] Rx#: [id number] Nitroglycerin-D5w Pmx 50 345.25 98.5 mg In Dextrose/Water 1 250ml.bag @ 5 MCG/MIN 1.5 mls/hr IV .Q24H [facility] Rx#: [id number] Potassium Chloride 20 meq 50 In Water For Injection 1 100ml.bag @ 50 mls/hr IVPB ONCE ONE Rx#: [id number] Propofol 500 mg In Empty 84.982 224.965 60.739 Bag 1 bag @ Titrate IV . Q0M [facility] Rx#:[id number] ceFAZolin 2 gm In Sodium 100 100 100 Chloride 0.9% 100 ml @ 100 mls/hr IVPB Q8HR [facility] Rx#:[id number] Oral 120 Output: Chest Tube Drainage 390 418 170 Chest Tube Mediastinal 260 310 120 Left Pleural/Mediastinal 130 108 50 Gastric Drainage 400 100 Urine 077 467 4106 Estimated Blood Loss 800 Other: Voiding Method Indwelling Catheter Indwelling Catheter Indwelling Catheter ABP, PAP, CO, CI - Last Documented Arterial Blood Pressure 122/59 Pulmonary Artery Pressure 29/18 Cardiac Output 9.4 Cardiac Index 4.2 - Exam GENERAL EXAM: Patient is alert and oriented and doesn't appear to be in any acute distress HEENT: Normocephalic. Normal reaction of pupils, equal size, normal range of extraocular motion. t. NECK: No masses, no nuchal rigidity. CHEST: No chest wall deformity. LUNGS: Diminished breath sounds at bases HEART: S1 and S2 normal with no audible mumurs or gallops. Regular rhythm, femorals equal on both sides.. ABDOMEN: No hepatosplenomegaly, normal bowel sounds, no guarding or rigidity. SKIN: No rashes CENTRAL NERVOUS SYSTEM: No focal deficits. EXTREMITIES: No cyanosis, clubbing or edema. - Labs CBC & Chem 7: 11/11/16 04:20 11/11/16 04:20 Labs: Abnormal Lab Results - Last 24 Hours (Table) 11/03/16 11/10/16 11/10/16 Range/Units 12:39 16:35 17:11 WBC (3.8-10.6) k/uL RBC (4.30-5.90) m/uL Hgb (13.0-17.5) gm/dL Hct (39.0-53.0) % Neutrophils # (1.3-7.7) k/uL Lymphocytes # (1.0-4.8) k/uL PT (9.0-12.0) sec ABG pH (7.35-7.45) ABG pCO2 (35-45) mmHg ABG pO2 (83-108) mmHg ABG O2 Saturation (94-97) % Chloride (98-107) mmol/L Glucose (74-99) mg/dL POC Glucose (mg/dL) 113 H 155 H (75-99) mg/dL Alkaline Phosphatase (38-126) U/L Total Protein (6.3-8.2) g/dL Crossmatch See Detail 11/10/16 11/10/16 11/10/16 Range/Units 17:20 18:10 19:03 WBC 11.1 H (3.8-10.6) k/uL RBC 3.55 L (4.30-5.90) m/uL Hgb 11.4 L (13.0-17.5) gm/dL Hct 32.9 L (39.0-53.0) % Neutrophils # 8.5 H (1.3-7.7) k/uL Lymphocytes # (1.0-4.8) k/uL PT (9.0-12.0) sec ABG pH (7.35-7.45) ABG pCO2 (35-45) mmHg ABG pO2 (83-108) mmHg ABG O2 Saturation (94-97) % Chloride (98-107) mmol/L Glucose (74-99) mg/dL POC Glucose (mg/dL) 169 H 174 H (75-99) mg/dL Alkaline Phosphatase (38-126) U/L Total Protein (6.3-8.2) g/dL Crossmatch 11/10/16 11/10/16 11/10/16 Range/Units 20:10 20:10 20:10 WBC (3.8-10.6) k/uL RBC (4.30-5.90) m/uL Hgb (13.0-17.5) gm/dL Hct (39.0-53.0) % Neutrophils # (1.3-7.7) k/uL Lymphocytes # (1.0-4.8) k/uL PT 13.1 H (9.0-12.0) sec ABG pH (7.35-7.45) ABG pCO2 (35-45) mmHg ABG pO2 (83-108) mmHg ABG O2 Saturation (94-97) % Chloride 108 H (98-107) mmol/L Glucose (74-99) mg/dL POC Glucose (mg/dL) 174 H (75-99) mg/dL Alkaline Phosphatase (38-126) U/L Total Protein (6.3-8.2) g/dL Crossmatch 11/10/16 11/10/16 11/10/16 Range/Units 20:10 21:19 22:07 WBC (3.8-10.6) k/uL RBC 3.51 L (4.30-5.90) m/uL Hgb 11.4 L (13.0-17.5) gm/dL Hct 32.6 L (39.0-53.0) % Neutrophils # 8.8 H (1.3-7.7) k/uL Lymphocytes # 0.6 L (1.0-4.8) k/uL PT (9.0-12.0) sec ABG pH (7.35-7.45) ABG pCO2 (35-45) mmHg ABG pO2 (83-108) mmHg ABG O2 Saturation (94-97) % Chloride (98-107) mmol/L Glucose (74-99) mg/dL POC Glucose (mg/dL) 172 H 160 H (75-99) mg/dL Alkaline Phosphatase (38-126) U/L Total Protein (6.3-8.2) g/dL Crossmatch 11/10/16 11/11/16 11/11/16 Range/Units 23:20 00:11 00:14 WBC (3.8-10.6) k/uL RBC (4.30-5.90) m/uL Hgb (13.0-17.5) gm/dL Hct (39.0-53.0) % Neutrophils # (1.3-7.7) k/uL Lymphocytes # (1.0-4.8) k/uL PT (9.0-12.0) sec ABG pH (7.35-7.45) ABG pCO2 (35-45) mmHg ABG pO2 55 L (83-108) mmHg ABG O2 Saturation 88.0 L (94-97) % Chloride (98-107) mmol/L Glucose (74-99) mg/dL POC Glucose (mg/dL) 151 H 149 H (75-99) mg/dL Alkaline Phosphatase (38-126) U/L Total Protein (6.3-8.2) g/dL Crossmatch 11/11/16 11/11/16 11/11/16 Range/Units 01:04 01:53 01:53 WBC (3.8-10.6) k/uL RBC (4.30-5.90) m/uL Hgb (13.0-17.5) gm/dL Hct (39.0-53.0) % Neutrophils # (1.3-7.7) k/uL Lymphocytes # (1.0-4.8) k/uL PT (9.0-12.0) sec ABG pH 7.50 H (7.35-7.45) ABG pCO2 28 L (35-45) mmHg ABG pO2 73 L (83-108) mmHg ABG O2 Saturation (94-97) % Chloride (98-107) mmol/L Glucose (74-99) mg/dL POC Glucose (mg/dL) 168 H 182 H (75-99) mg/dL Alkaline Phosphatase (38-126) U/L Total Protein (6.3-8.2) g/dL Crossmatch 11/11/16 11/11/16 11/11/16 Range/Units 03:11 04:20 04:20 WBC (3.8-10.6) k/uL RBC 3.45 L (4.30-5.90) m/uL Hgb 11.3 L (13.0-17.5) gm/dL Hct 31.2 L (39.0-53.0) % Neutrophils # 8.2 H (1.3-7.7) k/uL Lymphocytes # 0.6 L (1.0-4.8) k/uL PT (9.0-12.0) sec ABG pH (7.35-7.45) ABG pCO2 (35-45) mmHg ABG pO2 (83-108) mmHg ABG O2 Saturation (94-97) % Chloride (98-107) mmol/L Glucose 144 H (74-99) mg/dL POC Glucose (mg/dL) 175 H (75-99) mg/dL Alkaline Phosphatase 29 L (38-126) U/L Total Protein 5.4 L (6.3-8.2) g/dL Crossmatch 11/11/16 11/11/16 11/11/16 Range/Units 04:20 04:20 05:08 WBC (3.8-10.6) k/uL RBC (4.30-5.90) m/uL Hgb (13.0-17.5) gm/dL Hct (39.0-53.0) % Neutrophils # (1.3-7.7) k/uL Lymphocytes # (1.0-4.8) k/uL PT 13.6 H (9.0-12.0) sec ABG pH (7.35-7.45) ABG pCO2 (35-45) mmHg ABG pO2 (83-108) mmHg ABG O2 Saturation (94-97) % Chloride (98-107) mmol/L Glucose (74-99) mg/dL POC Glucose (mg/dL) 163 H 159 H (75-99) mg/dL Alkaline Phosphatase (38-126) U/L Total Protein (6.3-8.2) g/dL Crossmatch 11/11/16 11/11/16 11/11/16 Range/Units 06:13 07:05 08:07 WBC (3.8-10.6) k/uL RBC (4.30-5.90) m/uL Hgb (13.0-17.5) gm/dL Hct (39.0-53.0) % Neutrophils # (1.3-7.7) k/uL Lymphocytes # (1.0-4.8) k/uL PT (9.0-12.0) sec ABG pH (7.35-7.45) ABG pCO2 (35-45) mmHg ABG pO2 (83-108) mmHg ABG O2 Saturation (94-97) % Chloride (98-107) mmol/L Glucose (74-99) mg/dL POC Glucose (mg/dL) 161 H 181 H 176 H (75-99) mg/dL Alkaline Phosphatase (38-126) U/L Total Protein (6.3-8.2) g/dL Crossmatch 11/11/16 11/11/16 11/11/16 Range/Units 08:35 09:07 10:17 WBC (3.8-10.6) k/uL RBC (4.30-5.90) m/uL Hgb (13.0-17.5) gm/dL Hct (39.0-53.0) % Neutrophils # (1.3-7.7) k/uL Lymphocytes # (1.0-4.8) k/uL PT (9.0-12.0) sec ABG pH 7.49 H (7.35-7.45) ABG pCO2 28 L (35-45) mmHg ABG pO2 69 L (83-108) mmHg ABG O2 Saturation (94-97) % Chloride (98-107) mmol/L Glucose (74-99) mg/dL POC Glucose (mg/dL) 174 H 163 H (75-99) mg/dL Alkaline Phosphatase (38-126) U/L Total Protein (6.3-8.2) g/dL Crossmatch 11/11/16 11/11/16 Range/Units 12:21 13:57 WBC (3.8-10.6) k/uL RBC (4.30-5.90) m/uL Hgb (13.0-17.5) gm/dL Hct (39.0-53.0) % Neutrophils # (1.3-7.7) k/uL Lymphocytes # (1.0-4.8) k/uL PT (9.0-12.0) sec ABG pH (7.35-7.45) ABG pCO2 (35-45) mmHg ABG pO2 (83-108) mmHg ABG O2 Saturation (94-97) % Chloride (98-107) mmol/L Glucose (74-99) mg/dL POC Glucose (mg/dL) 139 H 104 H (75-99) mg/dL Alkaline Phosphatase (38-126) U/L Total Protein (6.3-8.2) g/dL Crossmatch Assessment and Plan (1) S/P CABG (coronary artery bypass graft) Status: Acute (2) CAD (coronary artery disease) Status: Acute (3) Diabetes Status: Acute Plan: Patient is doing well. No arrhythmias. Hemodynamically stable. Could be transferred to telemetry unit within next 24 hours we will continue with beta blockers, NIRMAL inhibitor and lipid-lowering agent
[2016-11-11 15:55] LABS: Glucose,Whole Blood 123 mg/dL (75-99)
[2016-11-11 18:17] LABS: Glucose,Whole Blood 137 mg/dL (75-99)
[2016-11-11] MEDS: SODIUM CHLORIDE 0.9% 1,000 ML IV SCH (18:20)
[2016-11-11] MEDS: HYDROcodone/APAP 5-325MG 1 EACH TAB PO PRN ×2 (18:21→22:40)
--- NOTE | 2016-11-11 22:26 | CONS ---
DATE OF CONSULTATION: 11/11/2016 REASON FOR CONSULTATION: Medical management requested by Dr. Villeda. CONSULTATION: This is a pleasant 66-year-old patient who has undergone coronary artery bypass, now extubated, sitting up on a chair. Patient was extubated earlier. Currently n.p.o. is at the bedside. Chronic stable medical conditions include diet-controlled diabetes, hyperlipidemia, hypertension, hepatitis C, being followed by Dr. Roman Rodríguez, acquired from tattoos. REVIEW OF SYSTEMS: CONSTITUTIONAL: Tired. HEENT: None. RESPIRATORY: Slight shortness of breath. CARDIOVASCULAR: None. GASTROINTESTINAL: None. GENITOURINARY: Has a Lopez catheter. DERMATOLOGIC: None. HEMATOLOGIC: None. LYMPHATICS: None. PSYCHIATRY: None. NEUROLOGICAL: None. PAST HISTORY: 1. Diabetes, diet-controlled. 2. Hyperlipidemia. 3. Hypertension. 4. Hepatitis C. SOCIAL HISTORY: Patient stopped smoking 10 years ago; smoked 1 pack a day on and off since teens prior to quitting. Alcohol occasionally. 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 FAMILY HISTORY: Reviewed; non-contributory to presentation. HOME MEDICATIONS: 1. Lott-3 1500 mg p.o. q.48 hours. 2. Multivitamin 1 tablet p.o. daily. 3. Singulair 10 mg p.o. daily. 4. Lopressor 25 mg p.o. b.i.d. 5. Claritin D one tablet p.o. daily. 6. Zestril 2.5 p.o. daily. 7. Acidophilus 1 tablet p.o. daily. 8. Glucosamine/chondroitin 1 tablet p.o. daily. 9. Lipitor 80 mg p.o. daily. ALLERGIES: IMDUR. On examination, temperature 99, pulse 72, respiration 18, blood pressure 109/53, pulse ox 99% on 5 L. GENERAL APPEARANCE: Well built; BMI of 30.9. Sitting up on a chair. EYES: Pupils equal. Conjunctivae normal. HEENT: Nasal cannula in place. NECK: JVD not raised. Mass not palpable. RESPIRATORY: Effort normal. LUNGS: Slightly decreased breath sounds. CARDIOVASCULAR: First and second sounds normal. No edema. ABDOMEN: Soft, non-tender. Liver and spleen not palpable. PSYCHIATRY: Alert and oriented x3. Mood and affect normal. INVESTIGATIONS: White count 9.6, hemoglobin 11.3. Potassium 3.7. BUN and creatinine are 18 and 0.80. ASSESSMENT: 1. Coronary artery bypass. 2. Coronary artery disease. 3. Hyperlipidemia. 4. Essential hypertension. 5. Hepatitis C. 6. Acute postoperative blood loss anemia, expected from surgery. Hemoglobin dropped from 15.6 to 11.4. PLAN: Patient's currently medications are reviewed. Care was discussed with the patient and his at the bedside. Home medications will be resumed. Patient encouraged ( ) diet to be advanced per Surgery. Thank you, Dr. Villeda.
[2016-11-11 22:33] LABS: Glucose,Whole Blood 115 mg/dL (75-99)
[2016-11-11] MEDS: SENNOSIDES-DOCUSATE SODIUM 1 EACH TAB PO SCH (22:40)
[2016-11-11] MEDS: METOPROLOL TARTRATE 25 MG TAB PO SCH (22:41)
[2016-11-12 02:08] LABS: Glucose,Whole Blood 98 mg/dL (75-99)
[2016-11-12] MEDS: HEPARIN SODIUM,PORCINE 5,000 UNIT/ML 1 ML VIAL SQ SCH ×4 (02:10→23:36)
[2016-11-12] MEDS: HYDROcodone/APAP 5-325MG 1 EACH TAB PO PRN ×5 (02:27→20:30)
[2016-11-12] MEDS: INSULIN REGULAR 100 UNIT in SODIUM CHLORIDE 0.9% 100 ML IV SCH (04:25)
[2016-11-12 04:29] LABS: Glucose,Whole Blood 119 mg/dL (75-99)
[2016-11-12 04:48] LABS: Basophils % (A) 0 %; CH 33.1; CHCM 37.1; Eosinophils # (A) 0.2 k/uL (0-0.7); Eosinophils % (A) 2 %; HCT 27.8 % (39.0-53.0); HDW 2.99; HGB 10.3 gm/dL (13.0-17.5); Luc # (Auto) 0.21; Luc % (Auto) 2; Lymphocytes # (A) 1.6 k/uL (1.0-4.8); Lymphocytes % (A) 16 %; MCH 33.1 pg (25.0-35.0); MCHC 36.9 g/dL (31.0-37.0); MCV 89.6 fL (80.0-100.0); Mean Platelet Volume 7.3; Monocytes # (A) 0.7 k/uL (0-1.0); Monocytes % (A) 7 %; Neutrophils # (A) 6.9 k/uL (1.3-7.7); Neutrophils % (A) 72 %; RDW 12.8 % (11.5-15.5); WBC 9.6 k/uL (3.8-10.6); WBC (Perox) 10.08
[2016-11-12 05:13] LABS: Ionized Calcium 4.9 mg/dL (4.5-5.3)
[2016-11-12 05:24] LABS: ALT 40 U/L (21-72); AST 30 U/L (17-59); Alkaline Phosphatase 30 U/L (38-126); Anion Gap 6 mmol/L; Blood Urea Nitrogen 17 mg/dL (9-20); Calcium 8.4 mg/dL (8.4-10.2); Carbon Dioxide 27 mmol/L (22-30); Chloride 107 mmol/L (98-107); Glucose 106 mg/dL (74-99); Magnesium 2.3 mg/dL (1.6-2.3); Non-African American GFR(MDRD) >60 (>60 ml/min/1.73 sqM); Potassium 3.6 mmol/L (3.5-5.1); Sodium 140 mmol/L (137-145); Total Protein 5.1 g/dL (6.3-8.2)
[2016-11-12] MEDS: LACTATED RINGERS 1,000 ML IV SCH (05:28)
[2016-11-12 07:42] LABS: Glucose,Whole Blood 105 mg/dL (75-99)
--- NOTE | 2016-11-12 07:48 | XR ---
EXAMINATION TYPE: XR chest 1V portable DATE OF EXAM: 11/12/2016 7:03 AM COMPARISON: 11/11/2016 INDICATION: Post cardiac surgery: Previous abnormal chest. TECHNIQUE: Single frontal view of the chest is obtained. FINDINGS: The heart size is normal. The pulmonary vasculature is normal. The lungs are clear. Mediastinal tube is present. Left-sided chest tube is present. Endotracheal tube and nasogastric tube is been removed. Sheath for a catheter is present on the right. IMPRESSION: 1. No acute pulmonary process. 2. Lines and catheters discussed above
[2016-11-12] MEDS ORDERED: POTASSIUM CHLORIDE ER 20 MEQ TAB.ER PO SCH ×2 (08:00→16:00)
[2016-11-12] MEDS: PANTOPRAZOLE 40 MG/10 ML VIAL IVP SCH (09:23)
[2016-11-12] MEDS: ASPIRIN 325 MG TAB PO SCH (09:25)
[2016-11-12] MEDS: ATORVASTATIN 40 MG TAB PO SCH (09:25)
[2016-11-12] MEDS: CLOPIDOGREL 75 MG TAB PO SCH (09:26)
[2016-11-12] MEDS: METOPROLOL TARTRATE 25 MG TAB PO SCH ×2 (09:28→20:30)
[2016-11-12 09:36] LABS: Glucose,Whole Blood 191 mg/dL (75-99)
[2016-11-12] MEDS ORDERED: FUROSEMIDE 10 MG/ML 2 ML VIAL IV ONE (09:59)
[2016-11-12 10:48] LABS: Glucose,Whole Blood 192 mg/dL (75-99)
[2016-11-12] MEDS: SODIUM CHLORIDE 0.9% 1,000 ML IV SCH (11:27)
[2016-11-12] MEDS: INSULIN GLARGINE 100 UNIT/ML 10 ML VIAL SQ SCH (11:30)
[2016-11-12] MEDS: INSULIN LISPRO (humaLOG) 300 UNIT/3 ML VIAL SQ SCH ×3 (12:41→20:31)
[2016-11-12 12:42] LABS: Glucose,Whole Blood 93 mg/dL (75-99)
--- NOTE | 2016-11-12 13:16 | P.PN ---
Addendum entered and electronically signed by Kaz Rockwell RNFA 11/12/16 14: 27: left pleural and mediastinal chest tubes removed without incident. Sutures secured in place Original Note: <Kaz Rockwell - Last Filed: 11/12/16 13:03> Progress Note - Text CV Surgery Nursing Principal diagnosis: Single-vessel coronary artery disease with subtotally occluded left anterior descending coronary artery. POD: #1, status post elective off pump coronary artery bypass grafting surgery 1, left internal mammary artery placed to his left anterior descending coronary artery. Intraoperative transesophageal echocardiogram. Intraoperative graft flow measurements using the [employer] system Patient awake and alert, no distress noted, no specific complaints, he is sitting up to bedside chair. Vital Signs: Afebrile Vital Signs - 24 hr 11/11/16 11/11/16 11/11/16 13:30 13:41 13:52 Temperature Pulse Rate 79 Respiratory 15 Rate O2 Sat by Pulse 99 98 98 Oximetry 11/11/16 11/11/16 11/11/16 14:00 14:30 15:00 Temperature Pulse Rate 82 81 77 Respiratory 25 H 27 H 25 H Rate O2 Sat by Pulse 98 98 99 Oximetry 11/11/16 11/11/16 11/11/16 15:30 16:00 16:30 Temperature 99.0 F Pulse Rate 77 72 75 Respiratory 32 H 18 25 H Rate O2 Sat by Pulse 98 99 97 Oximetry 11/11/16 11/11/16 11/11/16 17:00 17:30 18:00 Temperature Pulse Rate 75 79 73 Respiratory 20 26 H 21 Rate O2 Sat by Pulse 98 99 97 Oximetry 11/11/16 11/11/16 11/11/16 18:30 19:00 19:30 Temperature Pulse Rate 84 84 80 Respiratory 20 24 21 Rate O2 Sat by Pulse 97 97 97 Oximetry 11/11/16 11/11/16 11/11/16 20:00 20:30 21:00 Temperature 98.2 F Pulse Rate 77 76 81 Respiratory 15 16 17 Rate O2 Sat by Pulse 97 97 98 Oximetry 11/11/16 11/11/16 11/11/16 22:00 22:30 23:00 Temperature Pulse Rate 76 77 81 Respiratory 17 23 17 Rate O2 Sat by Pulse 97 98 99 Oximetry 11/11/16 11/12/16 11/12/16 23:30 00:00 00:30 Temperature 98 F Pulse Rate 79 82 81 Respiratory 14 15 13 Rate O2 Sat by Pulse 98 98 97 Oximetry 11/12/16 11/12/16 11/12/16 01:00 01:30 02:00 Temperature Pulse Rate 83 82 72 Respiratory 14 15 14 Rate O2 Sat by Pulse 98 97 98 Oximetry 11/12/16 11/12/16 11/12/16 02:30 03:00 03:30 Temperature Pulse Rate 82 76 71 Respiratory 19 15 14 Rate O2 Sat by Pulse 97 99 98 Oximetry 11/12/16 11/12/16 11/12/16 04:00 04:30 05:00 Temperature Pulse Rate 78 67 71 Respiratory 12 14 11 L Rate O2 Sat by Pulse 98 98 99 Oximetry 11/12/16 11/12/16 11/12/16 05:30 06:00 06:30 Temperature Pulse Rate 70 77 68 Respiratory 14 12 14 Rate O2 Sat by Pulse 99 99 99 Oximetry 11/12/16 11/12/16 11/12/16 07:00 07:30 08:00 Temperature 98.7 F Pulse Rate 69 71 74 Respiratory 15 19 25 H Rate O2 Sat by Pulse 98 98 96 Oximetry 11/12/16 11/12/16 11/12/16 08:30 09:00 09:30 Temperature Pulse Rate 77 81 83 Respiratory 22 20 31 H Rate O2 Sat by Pulse 97 96 95 Oximetry 11/12/16 11/12/16 11/12/16 10:00 10:30 11:00 Temperature Pulse Rate 77 81 80 Respiratory 18 11 L 23 Rate O2 Sat by Pulse 97 97 98 Oximetry 11/12/16 11/12/16 11:30 12:00 Temperature 97.8 F Pulse Rate 82 87 Respiratory 17 32 H Rate O2 Sat by Pulse 95 95 Oximetry ABP, PAP, CO, CI - Last 8 Hours Arterial Blood Pressure 109/67 Arterial Blood Pressure 123/64 Arterial Blood Pressure 119/54 Arterial Blood Pressure 115/56 Arterial Blood Pressure 107/52 Arterial Blood Pressure 115/52 Arterial Blood Pressure 138/75 Arterial Blood Pressure 127/68 Arterial Blood Pressure 118/66 Arterial Blood Pressure 119/57 Arterial Blood Pressure 112/53 Arterial Blood Pressure 108/56 Arterial Blood Pressure 120/59 Arterial Blood Pressure 103/54 Labs: Short CBC 11/12/16 Range/Units 04:25 WBC 9.6 (3.8-10.6) k/uL Hgb 10.3 L (13.0-17.5) gm/dL Hct 27.8 L (39.0-53.0) % Plt Count 157 (150-450) k/uL Neutrophils # 6.9 (1.3-7.7) k/uL BMP 11/12/16 04:25 Sodium 140 Potassium 3.6 Chloride 107 Carbon Dioxide 27 BUN 17 Creatinine 0.80 Glucose 106 H Calcium 8.4 Liver Function 11/12/16 Range/Units 04:25 Total Bilirubin 1.0 (0.2-1.3) mg/dL AST 30 (17-59) U/L ALT 40 (21-72) U/L Alkaline Phosphatase 30 L (38-126) U/L Albumin 3.2 L (3.5-5.0) g/dL ABG ABG pH 7.49 (7.35-7.45) H 11/11/16 08:35 ABG pCO2 28 mmHg (35-45) L 11/11/16 08:35 ABG pO2 69 mmHg (83-108) L 11/11/16 08:35 ABG O2 Saturation 95.3 % (94-97) 11/11/16 08:35 PT/INR, D-dimer PT 13.6 sec (9.0-12.0) H 11/11/16 04:20 INR 1.4 (<1.1) 11/11/16 04:20 IV Fluids: Lactated Ringer's at 20 mL per hour. CVP: 19 Lungs: Essentially clear throughout, diminished bilateral bases left greater than right. Respirations are unlabored. O2 sat: 95%, on 5 L nasal cannula. I/S: 0239-6770 mL, reviewed with the patient importance of using his incentive spirometry every hour while awake. The patient did give a good return demonstration on the incentive spirometry. Heart: S1S2, regular rhythm and rate, negative for S3, gallop or murmur. Bedside telemetry showing normal sinus rhythm heart rate 83. Sternum stable, chest incision clean with medline dressing clean and dry. Heart hugger in place, patient demonstrating proper use of his heart hugger. Abdomen: Soft, Positive bowel sounds present in all 4 quadrants. CBGs: 93-192 mg/dL with the last 24 hours. U/O: Adequate, Lopez catheter for accurate I&O. 570 mL output in the last 8 hours. Chest Tubes: Mediastinal chest tube without air leak, draining thin serosanguineous drainage. 40 mL output in the last 8 hours, 240 mL output in the last 24 hours. Left pleural chest tube without air leak, draining thin serosanguineous drainage. 40 mL output last 8 hours, 170 mL output in the last 24 hours. The chest tubes remained to -20 cm wall suction. 24 hr Total: Intake & Output 11/10/16 11/11/16 11/12/16 11/13/16 06:59 06:59 06:59 06:59 Intake Total 2603.361 2538.275 95.417 Output Total 3172 3510 410 Balance -568.639 -971.725 -314.583 Weight 102.3 kg 100.6 kg 100.6 kg Active Medications Hydrocodone Bitart/Acetaminophen ([place] 5-325) 2 each PO Q4HR PRN PRN Reason: Severe Pain Last Admin: 11/12/16 11:16 Dose: 2 each Hydrocodone Bitart/Acetaminophen ([place] 5-325) 1 each PO Q4HR PRN PRN Reason: Moderate Pain Albuterol/Ipratropium (Duoneb 0.5 Mg-3 Mg/3 Ml Soln) 3 ml INHALATION RT-Q2H PRN PRN Reason: Shortness Of Breath Or Wheezing Aspirin (Aspirin) 325 mg PO DAILY [facility] Last Admin: 11/12/16 09:25 Dose: 325 mg Atorvastatin Calcium (Lipitor) 40 mg PO DAILY [facility] Last Admin: 11/12/16 09:25 Dose: 40 mg Benzocaine/Menthol (Cepacol Lozenge) 1 each MUCOUS MEM Q2H PRN PRN Reason: Sore Throat Bisacodyl (Dulcolax) 10 mg RECTAL DAILY PRN PRN Reason: Constipation Clopidogrel Bisulfate (Plavix) 75 mg PO DAILY [facility] Last Admin: 11/12/16 09:26 Dose: 75 mg Heparin Sodium (Porcine) (Heparin) 5,000 unit SQ Q8HR [facility] Last Admin: 11/12/16 09:23 Dose: 5,000 unit Hydromorphone HCl (Dilaudid) 1 mg IVP Q1HR PRN PRN Reason: Pain 6-10 Last Admin: 11/11/16 03:45 Dose: 1 mg Lactated Ringer's (Lactated Ringers) 1,000 mls @ 20 mls/hr IV .Q24H [facility] Last Admin: 11/12/16 05:28 Dose: 20 mls/hr Clevidipine 25 mg/ IV Solution 50 mls @ 2 mls/hr IV .Q24H [facility]; 1 MG/HR PRN Reason: Protocol Last Titration: 11/11/16 12:23 Dose: Infused Sodium Chloride (Saline 0.9%) 1,000 mls @ 20 mls/hr IV .Q24H [facility] Last Admin: 11/12/16 11:27 Dose: Not Given Insulin Glargine (Lantus) 15 unit SQ DAILY [facility] Last Admin: 11/12/16 11:30 Dose: 15 unit Insulin Human Lispro (Humalog) 0 unit SQ ACHS [facility] PRN Reason: Protocol Last Admin: 11/12/16 12:41 Dose: Not Given Magnesium Hydroxide (Milk Of Magnesia) 2,400 mg PO BID PRN PRN Reason: Constipation Metoclopramide HCl (Reglan) 10 mg IVP Q4H PRN PRN Reason: Nausea And Vomiting Metoprolol Tartrate (Lopressor) 25 mg PO BID [facility] Last Admin: 11/12/16 09:28 Dose: 25 mg Miscellaneous Information (Magnesium Per Protocol) 1 each MISCELLANE DAILY PRN ; Protocol PRN Reason: Per Protocol Miscellaneous Information (Phosphorus Per Protocol) 1 each MISCELLANE DAILY PRN ; Protocol PRN Reason: Per Protocol Miscellaneous Information (Potassium Per Protocol) 1 each MISCELLANE DAILY PRN ; Protocol PRN Reason: Per Protocol Ondansetron HCl (Zofran) 4 mg IVP Q6HR PRN PRN Reason: Nausea And Vomiting Pantoprazole Sodium (Protonix) 40 mg PO DAILY [facility] Senna/Docusate Sodium (Senokot-S) 2 each PO HS [facility] Last Admin: 11/11/16 22:40 Dose: 2 each Sodium Chloride (Saline Flush) 10 ml IV BID [facility] Last Admin: 11/12/16 09:27 Dose: Not Given Plan: 1. Continue aspirin, statin, subcutaneous heparin, Plavix, and metoprolol to 25 mg by mouth twice a day. 2. Wean O2 as tolerated, pulmonary management per Dr. Basha. 3. Continue insulin drip per protocol, medical management per Dr. Cohen. 4. DVT and GI prophylaxis in place. 5. Repeat CBC, CMP, portable two view chest x-ray in a.m. 6. Discontinue chest tubes, Lopez catheter, Cordis. 7. Transferred to [address] [place] [address], continue working with physical therapy. 8. Lasix 20 mg IV 1 now. 9. More recommendations as patient progresses. <Boston Agrawal - Last Filed: 11/15/16 12:04> Progress Note - Text The patient was seen and examined. I agree with the above assessment and plan. Overall he is doing quite well. We'll remove his chest tubes and Lopez catheter today. His beta shell dosage will be increased. He'll be transferred to [facility] care later this afternoon.
[2016-11-12] MEDS ORDERED: METOPROLOL TARTRATE 12.5 MG TAB PO STA (13:48)
--- NOTE | 2016-11-12 14:04 | PN ---
A 66-year-old gentleman who has had a single-vessel bypass grafting off pump. The patient is doing well. He was extubated relatively quickly. He remains on O2 at 3 L. He is getting a lactated Ringer's IV at 20 mL an hour. The patient is awake and alert. Doing well on his incentive spirometer. Chest x-ray showing no acute abnormality. His oxygenation is excellent. Other than that, the patient has no major issues or complaints other than some pain. Current vital signs are reviewed. Temperature 98.7, heart rate 77, respiratory rate 22, blood pressure 127/68. His saturation is 96% on 3 L and his CVP is running at 12. Appears in no acute distress, sitting at the bedside. HEENT examination is grossly unremarkable. Nasal O2 in place. Mucous membranes are moist. No oral lesions. Neck is supple. Full range of motion. No adenopathy or thyromegaly. Neck veins are flat. Cardiovascular examination reveals regular rhythm and rate. S1, S2 normal. No S3, S4 or murmur. Lungs reveal relatively clear breath sounds. A few scattered mild rhonchi. No wheezes or crackles. Abdomen is soft. Bowel sounds are heard. No masses or tenderness. Extremities are intact. No edema. Skin is without rash or lesion. Brief neurologic examination is nonfocal. Labs are reviewed. White count 9.6, hemoglobin 10.3, hematocrit 27.8, platelet count 157,000. Sodium, potassium, chloride and CO2 all normal. BUN and creatinine were normal. Albumin 3.2. X-ray shows no acute abnormality. Microbiology is negative. Medications are reviewed. ASSESSMENT: 1. Status post single vessel bypass grafting off pump. 2. Diabetes mellitus. 3. History of hypertension. 4. Hyperlipidemia. PLAN: The patient is doing well. No additional recommendations are made. Will continue to follow. He will continue on the [facility] q.i.d. and p.r.n. We encourage him to use the incentive spirometry. Additional recommendations and suggestions are forthcoming. Prognosis is guarded but generally felt to be good.
[2016-11-12] MEDS ORDERED: Potassium Replacement Protocol 1 EACH MISC MISCELLANE PRN (14:59)
--- NOTE | 2016-11-12 16:41 | PN ---
DATE OF SERVICE: 11/12/2016 PRESENTING COMPLAINT: Coronary artery bypass. INTERVAL HISTORY: Patient is status post bypass, sitting up on a chair. Did eat a little bit. is at the bedside. Breathing is a little bit slow. Some pain is present. The patient chest tubes are about to come out by the nurse. Review of systems done for constitutional, cardiovascular, GI, pulmonary; relevant findings as above. Current medications are reviewed that include IV insulin. On examination, temperature 97.8, pulse 87, respirations 30, blood pressure 109/67, pulse ox 95% on 3 liters. GENERAL APPEARANCE: Sitting up, comfortable. EYES: Pupils equal. Conjunctivae normal. NECK: JVD not raised. Mass not palpable. RESPIRATORY: Effort normal. LUNGS: Decreased breath sounds. CARDIOVASCULAR: First and second sounds normal. No edema. ABDOMEN: Soft, nontender. Liver and spleen not palpable. PSYCHIATRY: Alert and oriented x3. Mood and affect is normal. INVESTIGATIONS: White count 9.6, hemoglobin 10.3, potassium 3.6. BUN and creatinine normal. ASSESSMENT: 1. Coronary artery bypass. 2. Coronary artery disease. 3. Hyperlipidemia. 4. Essential hypertension. 5. Hepatitis C. 6. Acute postoperative blood loss anemia as expected from surgery. 7. Hyperglycemia. PLAN: Continue current medication and treatment plan. Patient's HbA1c checked recently was 6.2. We will give the patient 15 units of Lantus. D/C insulin Drip. Continue Accu-Cheks per scale. Overall the patient is doing better.
[2016-11-12 17:10] LABS: Glucose,Whole Blood 153 mg/dL (75-99)
--- NOTE | 2016-11-12 17:24 | P.PN ---
Subjective Principal diagnosis: Status post CABG This is 66-year-old gentleman underwent single-vessel bypass surgery to the LAD and patient has done well. Remains hemodynamically stable. Patient had a chest tube removed today. Complains of more chest pain today. He remains in sinus rhythm. His vital signs are stable with a blood pressure of about 110/60- 70 diastolic area did heart rate is in the 70s. Lab values showed hemoglobin 10.3 and normal electrolytes. Patient is being transferred to telemetry. Incentive spirometry to be continued here Objective - Vital Signs Vital signs: Vital Signs Temp 98.3 F 11/12/16 16:00 Pulse 80 11/12/16 16:00 Resp 18 11/12/16 16:00 BP 106/63 11/12/16 16:00 Pulse Ox 94 L 11/12/16 16:00 Intake & Output 11/11/16 11/12/16 11/12/16 18:59 06:59 18:59 Intake Total 2094.490 443.785 295.417 Output Total 1945 1565 910 Balance 149.490 -1121.215 -614.583 Weight 100.6 kg Intake: IV 42 33 27 cardiac output 30 pressure bag 12 33 27 Intake, IV Titration 1452.490 260.785 68.417 Amount ACETAMINOPHEN IV (For NPO 100 ) 1,000 mg In Empty Bag 1 bag @ 400 mls/hr IVPB Q6HR [facility] Rx#:[id number] Albumin Human 5% 250 ml 250 In Empty Bag 1 bag @ 250 mls/hr IVPB Q1HR PRN Rx#: [id number] Clevidipine Butyrate 25 100 mg In Empty Bag 1 bag @ 1 MG/HR 2 mls/hr IV .Q24H [facility] Rx#:[id number] Insulin Regular 100 unit 53.251 0.785 8.417 In Sodium Chloride 0.9% 100 ml @ Per Protocol IV .Q0M [facility] Rx#:[id number] Lactated Ringers 1,000 ml 490 260 60 @ 50 mls/hr IV .Q20H [facility] Rx#:[id number] Magnesium Sulfate-D5w Pmx 200 1 gm In Dextrose/Water 1 100ml.bag @ 100 mls/hr IVPB Q1H [facility] Rx#: [id number] Nitroglycerin-D5w Pmx 50 98.5 mg In Dextrose/Water 1 250ml.bag @ 5 MCG/MIN 1.5 mls/hr IV .Q24H [facility] Rx#: [id number] Propofol 500 mg In Empty 60.739 Bag 1 bag @ Titrate IV . Q0M [facility] Rx#:[id number] ceFAZolin 2 gm In Sodium 100 Chloride 0.9% 100 ml @ 100 mls/hr IVPB Q8HR [facility] Rx#:[id number] Oral 600 150 200 Output: Chest Tube Drainage 250 180 100 Chest Tube Mediastinal 160 100 40 Left Pleural/Mediastinal 90 80 60 Gastric Drainage 100 Urine 1595 1385 810 Other: Voiding Method Indwelling Catheter Indwelling Catheter Indwelling Catheter # Voids 1 ABP, PAP, CO, CI - Last Documented Arterial Blood Pressure 109/67 Pulmonary Artery Pressure 29/18 Cardiac Output 9.4 Cardiac Index 4.2 - Exam GENERAL EXAM: Patient is alert and oriented and doesn't appear to be in any acute distress HEENT: Normocephalic. Normal reaction of pupils, equal size, normal range of extraocular motion. t. NECK: No masses, no nuchal rigidity. CHEST: No chest wall deformity. LUNGS: Diminished breath sounds at bases HEART: S1 and S2 normal with no audible mumurs or gallops. Regular rhythm, femorals equal on both sides.. ABDOMEN: No hepatosplenomegaly, normal bowel sounds, no guarding or rigidity. SKIN: No rashes CENTRAL NERVOUS SYSTEM: No focal deficits. EXTREMITIES: No cyanosis, clubbing or edema. - Labs CBC & Chem 7: 11/12/16 04:25 11/12/16 14:04 Labs: Abnormal Lab Results - Last 24 Hours (Table) 11/11/16 11/11/16 11/12/16 Range/Units 18:15 22:30 04:23 RBC (4.30-5.90) m/uL Hgb (13.0-17.5) gm/dL Hct (39.0-53.0) % Glucose (74-99) mg/dL POC Glucose (mg/dL) 137 H 115 H 119 H (75-99) mg/dL Alkaline Phosphatase (38-126) U/L Total Protein (6.3-8.2) g/dL Albumin (3.5-5.0) g/dL 11/12/16 11/12/16 11/12/16 Range/Units 04:25 04:25 07:40 RBC 3.10 L (4.30-5.90) m/uL Hgb 10.3 L (13.0-17.5) gm/dL Hct 27.8 L (39.0-53.0) % Glucose 106 H (74-99) mg/dL POC Glucose (mg/dL) 105 H (75-99) mg/dL Alkaline Phosphatase 30 L (38-126) U/L Total Protein 5.1 L (6.3-8.2) g/dL Albumin 3.2 L (3.5-5.0) g/dL 11/12/16 11/12/16 11/12/16 Range/Units 09:34 10:46 17:08 RBC (4.30-5.90) m/uL Hgb (13.0-17.5) gm/dL Hct (39.0-53.0) % Glucose (74-99) mg/dL POC Glucose (mg/dL) 191 H 192 H 153 H (75-99) mg/dL Alkaline Phosphatase (38-126) U/L Total Protein (6.3-8.2) g/dL Albumin (3.5-5.0) g/dL Assessment and Plan (1) S/P CABG (coronary artery bypass graft) Status: Acute (2) CAD (coronary artery disease) Status: Acute (3) Diabetes Status: Acute Plan: Patient is clinically stable. He will continue current medical therapy. Transfer to telemetry. Increase activity. Prognosis fair
[2016-11-12] MEDS: SENNOSIDES-DOCUSATE SODIUM 1 EACH TAB PO SCH (20:29)
[2016-11-12 20:39] LABS: Glucose,Whole Blood 180 mg/dL (75-99)
[2016-11-13 01:51] LABS: Glucose,Whole Blood 145 mg/dL (75-99)
[2016-11-13] MEDS: INSULIN LISPRO (humaLOG) 300 UNIT/3 ML VIAL SQ SCH ×5 (02:22→21:08)
[2016-11-13] MEDS: HYDROcodone/APAP 5-325MG 1 EACH TAB PO PRN ×4 (02:30→18:54)
[2016-11-13 06:13] LABS: Glucose,Whole Blood 121 mg/dL (75-99)
[2016-11-13 07:34] LABS: Basophils % (A) 0 %; CH 32.7; CHCM 35.8; Eosinophils # (A) 0.4 k/uL (0-0.7); Eosinophils % (A) 3 %; HCT 32.3 % (39.0-53.0); HDW 3.07; HGB 11.4 gm/dL (13.0-17.5); Luc # (Auto) 0.26; Luc % (Auto) 2; Lymphocytes # (A) 2.3 k/uL (1.0-4.8); Lymphocytes % (A) 21 %; MCH 32.5 pg (25.0-35.0); MCHC 35.4 g/dL (31.0-37.0); MCV 91.8 fL (80.0-100.0); Mean Platelet Volume 6.5; Monocytes # (A) 0.7 k/uL (0-1.0); Monocytes % (A) 7 %; Neutrophils # (A) 7.4 k/uL (1.3-7.7); Neutrophils % (A) 67 %; RBC 3.52 m/uL (4.30-5.90); RDW 12.8 % (11.5-15.5); WBC 11.1 k/uL (3.8-10.6)
[2016-11-13] MEDS: INSULIN GLARGINE 100 UNIT/ML 10 ML VIAL SQ SCH (07:46)
[2016-11-13] MEDS: HEPARIN SODIUM,PORCINE 5,000 UNIT/ML 1 ML VIAL SQ SCH ×2 (07:47→16:07)
[2016-11-13] MEDS: ATORVASTATIN 40 MG TAB PO SCH (07:47)
[2016-11-13] MEDS: CLOPIDOGREL 75 MG TAB PO SCH (07:47)
[2016-11-13] MEDS: PANTOPRAZOLE 40 MG TABLET PO SCH (07:48)
[2016-11-13] MEDS: ASPIRIN 325 MG TAB PO SCH (07:48)
[2016-11-13] MEDS: METOPROLOL TARTRATE 25 MG TAB PO SCH ×2 (07:48→21:08)
--- NOTE | 2016-11-13 08:42 | XR ---
EXAMINATION TYPE: XR chest 2V DATE OF EXAM: 11/13/2016 6:17 AM COMPARISON: 11/12/2016 INDICATION: Postop CABG TECHNIQUE: Frontal and lateral views obtained. FINDINGS: The heart size is normal. The pulmonary vasculature is normal. Some mild plate atelectasis may be at the left base. Previous chest tube is been removed. Sternotomy wires are in the midline. EKG leads overlie the chest. No pneumothorax is evident. IMPRESSION: 1. Suggestion of mild atelectasis developing at the left base.
[2016-11-13 08:58] LABS: ALT 40 U/L (21-72); AST 28 U/L (17-59); Alkaline Phosphatase 34 U/L (38-126); Anion Gap 7 mmol/L; Blood Urea Nitrogen 20 mg/dL (9-20); Calcium 8.9 mg/dL (8.4-10.2); Carbon Dioxide 30 mmol/L (22-30); Chloride 106 mmol/L (98-107); Glucose 120 mg/dL (74-99); Magnesium 2.1 mg/dL (1.6-2.3); Non-African American GFR(MDRD) >60 (>60 ml/min/1.73 sqM); Sodium 143 mmol/L (137-145); Total Bilirubin 0.8 mg/dL (0.2-1.3)
[2016-11-13] MEDS ORDERED: DILTIAZEM 125 MG in SODIUM CHLORIDE 0.9% 100 ML IV SCH (10:00)
[2016-11-13] MEDS ORDERED: DIGOXIN 250 MCG/ML 2 ML AMP IVP STA (10:02)
[2016-11-13] MEDS ORDERED: DEXTROSE 5% IN WATER 100 ML with AMIODARONE 150 MG IV ONE ×2 (10:30→13:00)
[2016-11-13] MEDS: AMIODARONE 450 MG in DEXTROSE 5% IN WATER 250 ML IV SCH ×4 (10:57→17:28)
[2016-11-13 11:46] LABS: Glucose,Whole Blood 190 mg/dL (75-99)
[2016-11-13] MEDS ORDERED: DIGOXIN 250 MCG/ML 2 ML AMP IVP ONE ×2 (14:00→18:00)
--- NOTE | 2016-11-13 15:47 | P.PN ---
Progress Note - Text CV Surgery Nursing Principal diagnosis: Single-vessel coronary artery disease with subtotally occluded left anterior descending coronary artery. POD: #3, status post elective off pump coronary artery bypass grafting surgery 1, left internal mammary artery placed to his left anterior descending coronary artery. Intraoperative transesophageal echocardiogram. Intraoperative graft flow measurements using the [employer] system Patient awake and alert, no distress noted, no specific complaints. The patient' s is at his bedside, questions answered. Vital Signs: Afebrile Vital Signs - 24 hr 11/12/16 11/12/16 11/12/16 13:00 13:30 14:00 Temperature Pulse Rate 82 76 79 Pulse Rate [ C D Still Operator ] Pulse Rate [ Pulse Oximetery ] Respiratory 25 H 18 16 Rate Blood Pressure 109/67 109/67 109/67 Blood Pressure [Left Arm Supine] Blood Pressure [Right Arm Supine] O2 Sat by Pulse 95 Oximetry 11/12/16 11/12/16 11/12/16 16:00 20:00 20:42 Temperature 98.3 F 99.2 F Pulse Rate Pulse Rate [ 80 C D Still Operator ] Pulse Rate [ 88 Pulse Oximetery ] Respiratory 18 18 Rate Blood Pressure Blood Pressure 117/56 [Left Arm Supine] Blood Pressure 106/63 [Right Arm Supine] O2 Sat by Pulse 94 L 91 L 89 L Oximetry 11/13/16 11/13/16 11/13/16 00:00 04:00 08:00 Temperature 98.7 F 98.3 F 98.3 F Pulse Rate Pulse Rate [ 86 C D Still Operator ] Pulse Rate [ 70 74 Pulse Oximetery ] Respiratory 18 18 16 Rate Blood Pressure Blood Pressure [Left Arm Supine] Blood Pressure 99/49 100/57 115/66 [Right Arm Supine] O2 Sat by Pulse 97 97 97 Oximetry 11/13/16 11/13/16 11:45 11:46 Temperature 98.1 F Pulse Rate Pulse Rate [ 100 100 C D Still Operator ] Pulse Rate [ Pulse Oximetery ] Respiratory 18 18 Rate Blood Pressure Blood Pressure 108/66 [Left Arm Supine] Blood Pressure [Right Arm Supine] O2 Sat by Pulse 97 Oximetry Labs: Short CBC 11/13/16 Range/Units 06:24 WBC 11.1 H (3.8-10.6) k/uL Hgb 11.4 L (13.0-17.5) gm/dL Hct 32.3 L (39.0-53.0) % Plt Count 226 (150-450) k/uL Neutrophils # 7.4 (1.3-7.7) k/uL BMP 11/12/16 11/13/16 14:04 06:24 Sodium 143 Potassium 3.9 4.0 Chloride 106 Carbon Dioxide 30 BUN 20 Creatinine 0.81 Glucose 120 H Calcium 8.9 Liver Function 11/13/16 Range/Units 06:24 Total Bilirubin 0.8 (0.2-1.3) mg/dL AST 28 (17-59) U/L ALT 40 (21-72) U/L Alkaline Phosphatase 34 L (38-126) U/L Albumin 3.5 (3.5-5.0) g/dL IV Fluids: 0.9% normal saline at 20 mL per hour Amiodarone drip initiated at 1 mg/m. Lungs: essentially clear throughout, diminished bilateral bases. Respirations are unlabored. O2 sat: 97% on 2 L nasal cannula. I/S: 1500 mL, reviewed with the patient the importance of using his incentive spirometry every hour while awake. The patient did give a good return demonstration on the use of his incentive spirometry. Heart: S1S2, irregular rhythm with a tachycardic rate, negative for S3, gallop or murmur. Remote telemetry showing atrial fibrillation with rapid ventricular response heart rate 133. Sternum stable, chest incision clean with silver dressing clean and dry. Heart hugger in place. The patient is demonstrating proper use of his heart hugger. Knee-high PRADEEP hose and sequential compression devices in place to bilateral lower extremity Antonio. Abdomen: Soft, Positive bowel sounds present in all 4 quadrants. Positive bowel movement this a.m. CBGs: 121-180 mg/dL in the last 24 hours. U/O: adequate. 24 hr Total: Intake & Output 11/11/16 11/12/16 11/13/16 11/14/16 06:59 06:59 06:59 06:59 Intake Total 2603.361 2538.275 535.417 440 Output Total 3172 3510 910 100 Balance -568.639 -971.725 -374.583 340 Weight 100.6 kg 100.6 kg 105.1 kg 105.1 kg Active Medications Hydrocodone Bitart/Acetaminophen ([place] 5-325) 2 each PO Q4HR PRN PRN Reason: Severe Pain Last Admin: 11/13/16 07:48 Dose: 2 each Hydrocodone Bitart/Acetaminophen ([place] 5-325) 1 each PO Q4HR PRN PRN Reason: Moderate Pain Albuterol/Ipratropium (Duoneb 0.5 Mg-3 Mg/3 Ml Soln) 3 ml INHALATION RT-Q2H PRN PRN Reason: Shortness Of Breath Or Wheezing Aspirin (Aspirin) 325 mg PO DAILY [facility] Last Admin: 11/13/16 07:48 Dose: 325 mg Atorvastatin Calcium (Lipitor) 40 mg PO DAILY [facility] Last Admin: 11/13/16 07:47 Dose: 40 mg Bisacodyl (Dulcolax) 10 mg RECTAL DAILY PRN PRN Reason: Constipation Clopidogrel Bisulfate (Plavix) 75 mg PO DAILY [facility] Last Admin: 11/13/16 07:47 Dose: 75 mg Digoxin (Lanoxin) 250 mcg IVP ONCE ONE Stop: 11/13/16 14:01 Digoxin (Lanoxin) 250 mcg IVP ONCE ONE Stop: 11/13/16 18:01 Heparin Sodium (Porcine) (Heparin) 5,000 unit SQ Q8HR [facility] Last Admin: 11/13/16 07:47 Dose: 5,000 unit Amiodarone HCl 450 mg/ (Dextrose/Water) 259 mls @ 34.53 mls/hr IV .Q7H31M [facility]; 1 MG/MIN PRN Reason: Protocol Stop: 11/14/16 10:41 Last Admin: 11/13/16 10:57 Dose: 1 mg/min, 34.53 mls/hr Amiodarone HCl 150 mg/ (Dextrose/Water) 103 mls @ 618 mls/hr IV .Q10M ONE Stop: 11/13/16 13:09 Insulin Glargine (Lantus) 15 unit SQ DAILY [facility] Last Admin: 11/13/16 07:46 Dose: 15 unit Insulin Human Lispro (Humalog) 0 unit SQ [id number] [facility] PRN Reason: Protocol Last Admin: 11/13/16 12:11 Dose: 3 unit Magnesium Hydroxide (Milk Of Magnesia) 2,400 mg PO BID PRN PRN Reason: Constipation Metoclopramide HCl (Reglan) 10 mg IVP Q4H PRN PRN Reason: Nausea And Vomiting Metoprolol Tartrate (Lopressor) 25 mg PO BID [facility] Last Admin: 11/13/16 07:48 Dose: 25 mg Miscellaneous Information (Magnesium Per Protocol) 1 each MISCELLANE DAILY PRN ; Protocol PRN Reason: Per Protocol Miscellaneous Information (Potassium Per Protocol) 1 each MISCELLANE DAILY PRN ; Protocol PRN Reason: Per Protocol Miscellaneous Information (Potassium Per Protocol) 1 each MISCELLANE DAILY PRN ; Protocol PRN Reason: Per Protocol Ondansetron HCl (Zofran) 4 mg IVP Q6HR PRN PRN Reason: Nausea And Vomiting Pantoprazole Sodium (Protonix) 40 mg PO DAILY [facility] Last Admin: 11/13/16 07:48 Dose: 40 mg Senna/Docusate Sodium (Senokot-S) 2 each PO HS [facility] Last Admin: 11/12/16 20:29 Dose: 2 each Sodium Chloride (Saline Flush) 10 ml IV BID [facility] Last Admin: 11/13/16 07:47 Dose: 10 ml Plan: 1. Continue aspirin, statin, subcutaneous heparin, Plavix, and metoprolol 25 mg by mouth twice a day. 2. Wean O2 as tolerated, pulmonary management per Dr. Leon. 3. Blood sugar and medical management per Dr. Cohen. 4. DVT and GI prophylaxis in place. 5. Repeat CBC, CMP, portable two view chest x-ray in a.m. 6. Initiate amiodarone protocol for atrial fibrillation. Digoxin 0.25 mg 1 now , digoxin 0.125 mg in 4 hours, and digoxin 0.125 mg 4 hours after that and then discontinue. 7. Physical therapy to assist patient with ambulation and rehabilitation for postoperative weakness. 8. First postoperative shower scheduled for today. 9. More recommendations as patient progresses.
[2016-11-13 16:45] LABS: Glucose,Whole Blood 129 mg/dL (75-99)
--- NOTE | 2016-11-13 17:05 | PN ---
66-year-old male with a history of a single vessel bypass grafting. It was done off pump. He was moved out of the ICU I believe yesterday. Doing relatively well. He was extubated quickly with good weaning parameters and blood gases. Currently he is feeling well. No major complaints. No chest pain, chest discomfort. Not coughing or wheezing. Not producing any phlegm. Still on a little bit of oxygen. Current vital signs are reviewed. His temperature is 98.1, heart rate 80, respiratory rate 18, blood pressure 108/66, mean 82, 2 liters saturation 97%. Appears in no acute distress. HEENT examination is grossly unremarkable. Mucous membranes are moist. No oral lesions. Neck is supple. Full range of motion. No adenopathy or thyromegaly. Neck is veins are flat. Cardiovascular examination reveals a regular rhythm and rate. S1, S2 normal. No S3, S4, or murmur. Lungs are clear. Breath sounds are equal. No wheezes or rhonchi. No crackles. ABDOMEN: Soft. Bowel sounds are heard. No masses or tenderness. EXTREMITIES: Intact. No cyanosis, clubbing, or edema. Skin is without rash. Neurologic examination is nonfocal. Labs are reviewed. White count 11.1, hemoglobin 11.4, hematocrit 32.3, platelet count normal. Electrolytes look pretty normal. Chest x-ray shows a very small area of a left basilar atelectasis. Medications are reviewed. IMPRESSION: 1. Status post off-pump single vessel bypass grafting. 2. Diabetes mellitus. 3. History of hypertension. 4. Hyperlipidemia. PLAN: The patient is encouraged to continue incentive spirometer and updrafts. Will continue to support him. Follow this patient closely. No additional recommendations are made. Chest x-ray shows minimal left basilar atelectasis or infiltrate. No additional recommendations are made.
[2016-11-13] MEDS: metFORMIN 500 MG TAB PO SCH (17:25)
[2016-11-13] MEDS ORDERED: DIGOXIN 250 MCG/ML 2 ML AMP IVP SCH (18:00)
--- NOTE | 2016-11-13 18:46 | PN ---
DATE OF SERVICE: 11/13/2016 PRESENTING COMPLAINT: Coronary artery bypass grafting. INTERVAL HISTORY: The patient is status post bypass. This morning went into atrial fibrillation and started on IV Amiodarone. Slightly short of breath, tired. Did tolerate some diet. at the bedside. Review of systems done for constitutional, cardiovascular, GI, pulmonary; relevant findings as above. Current medications are reviewed and include IV amiodarone. On examination, temperature 98.1, pulse 100, respiration 18, blood pressure 108/66, pulse ox 97% on 2 liters. GENERAL APPEARANCE: Sitting up, tired appearing. EYES: Pupils equal. Conjunctivae normal. NECK: JVD unable to assess. Mass not palpable. RESPIRATORY: Effort increased. LUNGS: Decreased breath sounds. CARDIOVASCULAR: Heart sounds irregular. No edema. ABDOMEN: Soft, nontender. Liver and spleen not palpable. PSYCHIATRY: Alert and oriented x3. Mood and affect normal. INVESTIGATIONS: White count 11.1, potassium 4.0. BUN and Creatinine are normal. Accu-Cheks noted. Chest x-ray report atelectasis. ASSESSMENT: 1. Coronary artery bypass. 2. Coronary artery disease. 3. Paroxysmal atrial fibrillation. The patient was in atrial fibrillation his morning, by late afternoon, the patient has gone back in sinus rhythm on IV Cardizem. 4. Hyperlipidemia. 5. Essential hypertension. 6. Hepatitis C. 7. Acute postoperative blood loss anemia expected from surgery. 8. Hyperglycemia. PLAN: Keep the patient on current medication and treatment plan. Keep the patient on current dose of medications including Lantus. Follow.
--- NOTE | 2016-11-13 19:22 | P.PN ---
Subjective Principal diagnosis: Status post CABG, atrial fibrillation This is 66-year-old gentleman underwent single-vessel bypass surgery to the LAD and patient has done well. Remains hemodynamically stable. Patient had a chest tube removed today. Complains of more chest pain today. He remains in sinus rhythm. His vital signs are stable with a blood pressure of about 110/60- 70 diastolic area did heart rate is in the 70s. Lab values showed hemoglobin 10.3 and normal electrolytes. Patient is being transferred to telemetry. Incentive spirometry to be continued here in Patient is reevaluated in . Patient went into atrial fibrillation with rapid ventricular response. Patient was very symptomatically. Patient was started on amiodarone and digoxin combination. Patient is otherwise clinically stable. Objective - Vital Signs Vital signs: Vital Signs Temp 98.4 F 11/13/16 16:00 Pulse 89 11/13/16 16:00 Resp 20 11/13/16 16:00 BP 113/70 11/13/16 16:00 Pulse Ox 95 11/13/16 16:00 Intake & Output 11/13/16 11/13/16 11/14/16 06:59 18:59 06:59 Intake Total 240 1844.733 Output Total 700 Balance 240 1144.733 Weight 105.1 kg 105.1 kg Intake: Intake, IV Titration 424.733 Amount Amiodarone 450 mg In 224.733 Dextrose 5% in Water 250 ml @ 1 MG/MIN 34.53 mls/ hr IV .Q7H31M [facility] Rx#: [id number] Dextrose 5% in Water 100 100 ml @ 618 mls/hr IV .Q10M ONE with Amiodarone 150 mg Rx#:[id number] Dextrose 5% in Water 100 100 ml @ 618 mls/hr IV .Q10M ONE with Amiodarone 150 mg Rx#:[id number] Oral 240 1420 Output: Urine 700 Other: Voiding Method Toilet Toilet Urinal Urinal # Voids 1 2 ABP, PAP, CO, CI - Last Documented Arterial Blood Pressure 109/67 Pulmonary Artery Pressure 29/18 Cardiac Output 9.4 Cardiac Index 4.2 - Exam GENERAL EXAM: Patient is alert and oriented and doesn't appear to be in any acute distress HEENT: Normocephalic. Normal reaction of pupils, equal size, normal range of extraocular motion. t. NECK: No masses, no nuchal rigidity. CHEST: No chest wall deformity. LUNGS: Diminished breath sounds at bases HEART: Irregular heart rhythm.. ABDOMEN: No hepatosplenomegaly, normal bowel sounds, no guarding or rigidity. SKIN: No rashes CENTRAL NERVOUS SYSTEM: No focal deficits. EXTREMITIES: No cyanosis, clubbing or edema. - Labs CBC & Chem 7: 11/13/16 06:24 11/13/16 06:24 Labs: Abnormal Lab Results - Last 24 Hours (Table) 11/12/16 11/13/16 11/13/16 Range/Units 20:21 01:49 06:09 WBC (3.8-10.6) k/uL RBC (4.30-5.90) m/uL Hgb (13.0-17.5) gm/dL Hct (39.0-53.0) % Glucose (74-99) mg/dL POC Glucose (mg/dL) 180 H 145 H 121 H (75-99) mg/dL Alkaline Phosphatase (38-126) U/L Total Protein (6.3-8.2) g/dL 11/13/16 11/13/16 11/13/16 Range/Units 06:24 06:24 11:44 WBC 11.1 H (3.8-10.6) k/uL RBC 3.52 L (4.30-5.90) m/uL Hgb 11.4 L (13.0-17.5) gm/dL Hct 32.3 L (39.0-53.0) % Glucose 120 H (74-99) mg/dL POC Glucose (mg/dL) 190 H (75-99) mg/dL Alkaline Phosphatase 34 L (38-126) U/L Total Protein 6.0 L (6.3-8.2) g/dL 11/13/16 Range/Units 16:44 WBC (3.8-10.6) k/uL RBC (4.30-5.90) m/uL Hgb (13.0-17.5) gm/dL Hct (39.0-53.0) % Glucose (74-99) mg/dL POC Glucose (mg/dL) 129 H (75-99) mg/dL Alkaline Phosphatase (38-126) U/L Total Protein (6.3-8.2) g/dL Assessment and Plan (1) S/P CABG (coronary artery bypass graft) Status: Acute (2) CAD (coronary artery disease) Status: Acute (3) Diabetes Status: Acute (4) New onset atrial fibrillation Status: Acute Plan: Patient is otherwise clinically stable. Patient is being started on IV amiodarone and digoxin for treatment of atrial fibrillation. Activity as tolerated. Incentive spirometry to be continued
[2016-11-13 20:00] LABS: Glucose,Whole Blood 169 mg/dL (75-99)
[2016-11-13] MEDS: SENNOSIDES-DOCUSATE SODIUM 1 EACH TAB PO SCH (21:08)
[2016-11-14] MEDS: HYDROcodone/APAP 5-325MG 1 EACH TAB PO PRN ×4 (00:01→20:07)
[2016-11-14] MEDS: HEPARIN SODIUM,PORCINE 5,000 UNIT/ML 1 ML VIAL SQ SCH ×4 (00:01→23:26)
[2016-11-14] MEDS: AMIODARONE 450 MG in DEXTROSE 5% IN WATER 250 ML IV SCH ×4 (01:50→09:45)
[2016-11-14 01:51] LABS: Glucose,Whole Blood 125 mg/dL (75-99)
[2016-11-14] MEDS: INSULIN LISPRO (humaLOG) 300 UNIT/3 ML VIAL SQ SCH ×5 (01:51→21:03)
[2016-11-14] MEDS: metFORMIN 500 MG TAB PO SCH ×2 (06:34→16:22)
[2016-11-14 06:44] LABS: Basophils % (A) 0 %; CH 32.7; CHCM 35.9; Eosinophils # (A) 0.4 k/uL (0-0.7); Eosinophils % (A) 5 %; HCT 30.5 % (39.0-53.0); HDW 3.18; HGB 10.8 gm/dL (13.0-17.5); Luc # (Auto) 0.21; Luc % (Auto) 2; Lymphocytes # (A) 1.4 k/uL (1.0-4.8); Lymphocytes % (A) 16 %; MCH 32.3 pg (25.0-35.0); MCHC 35.3 g/dL (31.0-37.0); MCV 91.4 fL (80.0-100.0); Mean Platelet Volume 7.5; Monocytes # (A) 0.6 k/uL (0-1.0); Monocytes % (A) 7 %; Neutrophils # (A) 6.1 k/uL (1.3-7.7); Neutrophils % (A) 70 %; RBC 3.34 m/uL (4.30-5.90); RDW 12.7 % (11.5-15.5); WBC 8.6 k/uL (3.8-10.6); WBC (Perox) 9.22
[2016-11-14 07:05] LABS: Glucose,Whole Blood 151 mg/dL (75-99)
[2016-11-14 07:10] LABS: ALT 42 U/L (21-72); AST 34 U/L (17-59); Alkaline Phosphatase 34 U/L (38-126); Anion Gap 7 mmol/L; Blood Urea Nitrogen 18 mg/dL (9-20); Calcium 8.5 mg/dL (8.4-10.2); Carbon Dioxide 29 mmol/L (22-30); Chloride 108 mmol/L (98-107); Glucose 130 mg/dL (74-99); Non-African American GFR(MDRD) >60 (>60 ml/min/1.73 sqM); Potassium 3.7 mmol/L (3.5-5.1); Sodium 144 mmol/L (137-145); Total Protein 5.7 g/dL (6.3-8.2)
--- NOTE | 2016-11-14 07:31 | XR ---
EXAMINATION TYPE: XR chest 2V DATE OF EXAM: 11/14/2016 6:24 AM COMPARISON:Chest x-ray from yesterday. HISTORY: Postop CABG procedure. TECHNIQUE: Frontal and lateral views of the chest are obtained. FINDINGS: Post CABG changes with mediastinal clips and sternal wires are redemonstrated. There is pe rsistent left basilar atelectasis and/or infiltrate in new patchy right basilar atelectasis. No large pleural effusion or pneumothorax is seen bilaterally. The cardiac silhouette size is stable mildly e nlarged. The osseous structures are intact. IMPRESSION: Stable left basilar atelectasis and/or infiltrate, new patchy right basilar atelectasis.
[2016-11-14] MEDS: METOPROLOL TARTRATE 25 MG TAB PO SCH ×2 (08:20→20:07)
[2016-11-14] MEDS: CLOPIDOGREL 75 MG TAB PO SCH (08:20)
[2016-11-14] MEDS: ATORVASTATIN 40 MG TAB PO SCH (08:21)
[2016-11-14] MEDS: PANTOPRAZOLE 40 MG TABLET PO SCH (08:21)
[2016-11-14] MEDS: ASPIRIN 325 MG TAB PO SCH (08:21)
[2016-11-14] MEDS: INSULIN GLARGINE 100 UNIT/ML 10 ML VIAL SQ SCH (09:46)
[2016-11-14 11:43] LABS: Glucose,Whole Blood 145 mg/dL (75-99)
--- NOTE | 2016-11-14 12:37 | P.PN ---
Progress Note - Text CV Surgery Nursing POD: #4 elective off-pump coronary artery bypass graft 1, left internal mammary artery to the left anterior descending coronary artery, intraoperative transesophageal echocardiogram, intraoperative graft flow measurements using the Bfly system Patient awake and alert, no distress noted, no specific complaints. Vital Signs: Afebrile, T-max 98.4F Vital Signs - 24 hr 11/13/16 11/13/16 11/14/16 16:00 20:00 00:00 Temperature 98.4 F 98.0 F 97.6 F Pulse Rate [ 89 Research And Development Tester ] Pulse Rate [ 89 83 70 Pulse Oximetery ] Respiratory 20 18 18 Rate Blood Pressure 113/70 118/67 107/61 [Right Arm Supine] O2 Sat by Pulse 95 92 L 92 L Oximetry 11/14/16 04:00 Temperature 97.0 F L Pulse Rate [ Research And Development Tester ] Pulse Rate [ 66 Pulse Oximetery ] Respiratory 18 Rate Blood Pressure 113/65 [Right Arm Supine] O2 Sat by Pulse 94 L Oximetry Labs: Short CBC 11/14/16 Range/Units 06:29 WBC 8.6 (3.8-10.6) k/uL Hgb 10.8 L (13.0-17.5) gm/dL Hct 30.5 L (39.0-53.0) % Plt Count 209 (150-450) k/uL Neutrophils # 6.1 (1.3-7.7) k/uL BMP 11/14/16 06:29 Sodium 144 Potassium 3.7 Chloride 108 H Carbon Dioxide 29 BUN 18 Creatinine 0.76 Glucose 130 H Calcium 8.5 Liver Function 11/14/16 Range/Units 06:29 Total Bilirubin 1.0 (0.2-1.3) mg/dL AST 34 (17-59) U/L ALT 42 (21-72) U/L Alkaline Phosphatase 34 L (38-126) U/L Albumin 3.2 L (3.5-5.0) g/dL Lungs: Respirations are even and nonlabored, breath sounds slightly diminished in bilateral bases O2 sat: 94% on room air Heart: S1S2, regular rate and rhythm, portable telemetry shows a normal sinus rhythm with a rate of 62 Sternum stable, chest incision clean with silverlon dressing clean and dry. Abdomen: Soft, Positive bowel sounds present in all 4 quadrants. CBGs: 125-169 mg/dL U/O: Good urine output Intake & Output 11/12/16 11/13/16 11/14/16 11/15/16 06:59 06:59 06:59 06:59 Intake Total 2538.275 314.040 0878.142 396.642 Output Total 3510 910 1200 600 Balance -971.725 -374.583 908.142 -203.358 Weight 100.6 kg 105.1 kg 105.1 kg Active Medications Hydrocodone Bitart/Acetaminophen (Energy 5-325) 2 each PO Q4HR PRN PRN Reason: Severe Pain Last Admin: 11/14/16 12:33 Dose: 2 each Hydrocodone Bitart/Acetaminophen (Energy 5-325) 1 each PO Q4HR PRN PRN Reason: Moderate Pain Albuterol/Ipratropium (Duoneb 0.5 Mg-3 Mg/3 Ml Soln) 3 ml INHALATION RT-Q2H PRN PRN Reason: Shortness Of Breath Or Wheezing Amiodarone HCl (Cordarone) 400 mg PO BID [facility] Aspirin (Aspirin) 325 mg PO DAILY [facility] Last Admin: 11/14/16 08:21 Dose: 325 mg Atorvastatin Calcium (Lipitor) 40 mg PO DAILY [facility] Last Admin: 11/14/16 08:21 Dose: 40 mg Bisacodyl (Dulcolax) 10 mg RECTAL DAILY PRN PRN Reason: Constipation Clopidogrel Bisulfate (Plavix) 75 mg PO DAILY [facility] Last Admin: 11/14/16 08:20 Dose: 75 mg Heparin Sodium (Porcine) (Heparin) 5,000 unit SQ Q8HR [facility] Last Admin: 11/14/16 08:20 Dose: 5,000 unit Insulin Glargine (Lantus) 15 unit SQ DAILY [facility] Last Admin: 11/14/16 09:46 Dose: 15 unit Insulin Human Lispro (Humalog) 0 unit SQ REEL2NK [facility] PRN Reason: Protocol Last Admin: 11/14/16 12:35 Dose: 1 unit Magnesium Hydroxide (Milk Of Magnesia) 2,400 mg PO BID PRN PRN Reason: Constipation Metformin HCl (Glucophage) 500 mg PO AC-BID [facility] Last Admin: 11/14/16 06:34 Dose: 500 mg Metoclopramide HCl (Reglan) 10 mg IVP Q4H PRN PRN Reason: Nausea And Vomiting Metoprolol Tartrate (Lopressor) 25 mg PO BID [facility] Last Admin: 11/14/16 08:20 Dose: 25 mg Miscellaneous Information (Magnesium Per Protocol) 1 each MISCELLANE DAILY PRN ; Protocol PRN Reason: Per Protocol Miscellaneous Information (Potassium Per Protocol) 1 each MISCELLANE DAILY PRN ; Protocol PRN Reason: Per Protocol Miscellaneous Information (Potassium Per Protocol) 1 each MISCELLANE DAILY PRN ; Protocol PRN Reason: Per Protocol Ondansetron HCl (Zofran) 4 mg IVP Q6HR PRN PRN Reason: Nausea And Vomiting Pantoprazole Sodium (Protonix) 40 mg PO DAILY [facility] Last Admin: 11/14/16 08:21 Dose: 40 mg Senna/Docusate Sodium (Senokot-S) 2 each PO HS [facility] Last Admin: 11/13/16 21:08 Dose: 2 each Sodium Chloride (Saline Flush) 10 ml IV BID [facility] Last Admin: 11/14/16 08:21 Dose: 10 ml Plan: Continue aggressive pulmonary toilet Continue to increase activity as tolerated Home soon
--- NOTE | 2016-11-14 13:48 | P.PN ---
Subjective Principal diagnosis: Status post CABG This is a 66-year-old gentleman who underwent single-vessel bypass surgery to the LAD. He remains in normal sinus rhythm today, patient is currently on IV amiodarone drip which will be changed over to oral amiodarone. He states he did have some fluttering in the chest when he went down for his chest x-ray today, otherwise he's feeling well. Denies any chest pain, breathing overall has been stable. Dr. Frost did speak with the patient and his significant other today explaining the risks and benefits of being on oral amiodarone. Objective - Vital Signs Vital signs: Vital Signs Temp 97.0 F L 11/14/16 04:00 Pulse 61 11/14/16 13:36 Resp 20 11/14/16 04:00 BP 124/75 11/14/16 13:36 Pulse Ox 94 L 11/14/16 13:36 Intake & Output 11/13/16 11/14/16 11/14/16 18:59 06:59 18:59 Intake Total 1844.733 263.409 396.642 Output Total 700 500 600 Balance 1144.733 -236.591 -203.358 Weight 105.1 kg Intake: IV 119 Amiodarone 450 mg In 119 Dextrose 5% in Water 250 ml @ 1 MG/MIN 34.53 mls/ hr IV .Q7H31M [facility] Rx#: [id number] Intake, IV Titration 424.733 144.409 136.642 Amount Amiodarone 450 mg In 224.733 144.409 136.642 Dextrose 5% in Water 250 ml @ 1 MG/MIN 34.53 mls/ hr IV .Q7H31M [facility] Rx#: [id number] Dextrose 5% in Water 100 100 ml @ 618 mls/hr IV .Q10M ONE with Amiodarone 150 mg Rx#:[id number] Dextrose 5% in Water 100 100 ml @ 618 mls/hr IV .Q10M ONE with Amiodarone 150 mg Rx#:[id number] Oral 1420 260 Output: Urine 700 500 600 Other: Voiding Method Toilet Toilet Urinal Urinal # Voids 2 1 ABP, PAP, CO, CI - Last Documented Arterial Blood Pressure 109/67 Pulmonary Artery Pressure 29/18 Cardiac Output 9.4 Cardiac Index 4.2 - Exam PHYSICAL EXAMINATION: HEENT: Head is atraumatic, normocephalic. Pupils equal, round. Neck is supple. There is no elevated jugular venous pressure. HEART EXAMINATION: Heart S1, S2 normal. No murmur or gallop heard. CHEST EXAMINATION: Lungs are clear to auscultation and precussion. No chest wall tenderness is noted on palpation or with deep breathing. ABDOMEN: Soft, nontender. Bowel sounds are heard. No organomegaly noted. EXTREMITIES: 2+ peripheral pulses with no evidence of peripheral edema and no calf tenderness noted. NEUROLOGIC patient is awake, alert and oriented -3. . - Labs CBC & Chem 7: 11/14/16 06:29 11/14/16 06:29 Labs: Abnormal Lab Results - Last 24 Hours (Table) 11/13/16 11/13/16 11/14/16 Range/Units 16:44 19:58 01:49 RBC (4.30-5.90) m/uL Hgb (13.0-17.5) gm/dL Hct (39.0-53.0) % Chloride (98-107) mmol/L Glucose (74-99) mg/dL POC Glucose (mg/dL) 129 H 169 H 125 H (75-99) mg/dL Alkaline Phosphatase (38-126) U/L Total Protein (6.3-8.2) g/dL Albumin (3.5-5.0) g/dL 11/14/16 11/14/16 11/14/16 Range/Units 06:29 06:29 06:56 RBC 3.34 L (4.30-5.90) m/uL Hgb 10.8 L (13.0-17.5) gm/dL Hct 30.5 L (39.0-53.0) % Chloride 108 H (98-107) mmol/L Glucose 130 H (74-99) mg/dL POC Glucose (mg/dL) 151 H (75-99) mg/dL Alkaline Phosphatase 34 L (38-126) U/L Total Protein 5.7 L (6.3-8.2) g/dL Albumin 3.2 L (3.5-5.0) g/dL 11/14/16 Range/Units 11:35 RBC (4.30-5.90) m/uL Hgb (13.0-17.5) gm/dL Hct (39.0-53.0) % Chloride (98-107) mmol/L Glucose (74-99) mg/dL POC Glucose (mg/dL) 145 H (75-99) mg/dL Alkaline Phosphatase (38-126) U/L Total Protein (6.3-8.2) g/dL Albumin (3.5-5.0) g/dL Assessment and Plan (1) Paroxysmal a-fib Status: Acute (2) CAD (coronary artery disease) Status: Acute (3) Diabetes Status: Acute (4) S/P CABG (coronary artery bypass graft) Status: Acute Plan: From cardiology's perspective, patient is doing well overall. Once he is discharged home from the hospital we'll make him a follow-up appointment in 2 weeks in the office. If the patient remains in normal sinus rhythm, amiodarone will be discontinued after one month. DNP note has been reviewed, I agree with a documented findings and plan of care. Patient was seen and examined.
[2016-11-14 14:31] VITALS: RESP 18
[2016-11-14] MEDS ORDERED: Potassium Replacement Protocol 1 EACH MISC MISCELLANE PRN (15:08)
[2016-11-14] MEDS ORDERED: POTASSIUM CHLORIDE ER 20 MEQ TAB.ER PO SCH (16:00)
[2016-11-14 16:51] LABS: Glucose,Whole Blood 138 mg/dL (75-99)
--- NOTE | 2016-11-14 17:17 | P.PN ---
Subjective This is a very pleasant 66-year-old gentleman who has a history of diabetes Devon, hyperlipidemia, hypertension. He has a remote history of chronic tobacco dependence. He was also found to have coronary artery disease and was admitted here on 11/10/2016 for an elective off-pump coronary artery bypass grafting times one using a GRADY to the LAD. He is seen again today 11/14/2016 in follow-up on the selective care unit. He is awake and alert in no acute distress. He is doing quite well. He's been up ambulating in the hallway. He denies any worsening shortness of breath, cough or congestion. He is currently maintaining good O2 saturations in the mid 90s on room air. He's been hemodynamically stable. He is afebrile. He remains in sinus rhythm. He is continued on amiodarone. Objective - Vital Signs Vital signs: Vital Signs Temp 97.8 F 11/14/16 11:15 Pulse 61 11/14/16 13:36 Resp 18 11/14/16 11:15 BP 124/75 11/14/16 13:36 Pulse Ox 94 L 11/14/16 13:36 Intake & Output 11/13/16 11/14/16 11/14/16 18:59 06:59 18:59 Intake Total 1844.733 263.409 696.642 Output Total 700 500 600 Balance 1144.733 -236.591 96.642 Weight 105.1 kg Intake: IV 119 Amiodarone 450 mg In 119 Dextrose 5% in Water 250 ml @ 1 MG/MIN 34.53 mls/ hr IV .Q7H31M [facility] Rx#: [id number] Intake, IV Titration 424.733 144.409 136.642 Amount Amiodarone 450 mg In 224.733 144.409 136.642 Dextrose 5% in Water 250 ml @ 1 MG/MIN 34.53 mls/ hr IV .Q7H31M [facility] Rx#: [id number] Dextrose 5% in Water 100 100 ml @ 618 mls/hr IV .Q10M ONE with Amiodarone 150 mg Rx#:[id number] Dextrose 5% in Water 100 100 ml @ 618 mls/hr IV .Q10M ONE with Amiodarone 150 mg Rx#:[id number] Oral 1420 560 Output: Urine 700 500 600 Other: Voiding Method Toilet Toilet Urinal Urinal # Voids 2 1 ABP, PAP, CO, CI - Last Documented Arterial Blood Pressure 109/67 Pulmonary Artery Pressure 29/18 Cardiac Output 9.4 Cardiac Index 4.2 - Exam GENERAL EXAM: Alert, active, comfortable in no apparent distress. HEAD: Normocephalic. EYES: Normal reaction of pupils, equal size. NOSE: Clear with pink turbinates. THROAT: No erythema or exudates. NECK: No masses, no JVD. CHEST: No chest wall deformity. Dressing dry and intact. LUNGS: Equal air entry with faint crackles in the posterior bases. CVS: S1 and S2 normal with no audible mumurs, regular rhythm. ABDOMEN: No hepatosplenomegaly, normal bowel sounds, no guarding or rigidity. SPINE: No scoliosis or deformity SKIN: No rashes CENTRAL NERVOUS SYSTEM: No focal deficits, tone is normal in all 4 extremities. Extremities: There is no significant peripheral edema. No clubbing, no cyanosis. Peripheral pulses are intact. - Labs CBC & Chem 7: 11/14/16 06:29 11/14/16 06:29 Labs: Abnormal Lab Results - Last 24 Hours (Table) 11/13/16 11/14/16 11/14/16 Range/Units 19:58 01:49 06:29 RBC 3.34 L (4.30-5.90) m/uL Hgb 10.8 L (13.0-17.5) gm/dL Hct 30.5 L (39.0-53.0) % Chloride (98-107) mmol/L Glucose (74-99) mg/dL POC Glucose (mg/dL) 169 H 125 H (75-99) mg/dL Alkaline Phosphatase (38-126) U/L Total Protein (6.3-8.2) g/dL Albumin (3.5-5.0) g/dL 11/14/16 11/14/16 11/14/16 Range/Units 06:29 06:56 11:35 RBC (4.30-5.90) m/uL Hgb (13.0-17.5) gm/dL Hct (39.0-53.0) % Chloride 108 H (98-107) mmol/L Glucose 130 H (74-99) mg/dL POC Glucose (mg/dL) 151 H 145 H (75-99) mg/dL Alkaline Phosphatase 34 L (38-126) U/L Total Protein 5.7 L (6.3-8.2) g/dL Albumin 3.2 L (3.5-5.0) g/dL 11/14/16 Range/Units 16:37 RBC (4.30-5.90) m/uL Hgb (13.0-17.5) gm/dL Hct (39.0-53.0) % Chloride (98-107) mmol/L Glucose (74-99) mg/dL POC Glucose (mg/dL) 138 H (75-99) mg/dL Alkaline Phosphatase (38-126) U/L Total Protein (6.3-8.2) g/dL Albumin (3.5-5.0) g/dL Assessment and Plan Plan: Impression: #1 Coronary artery disease status post coronary artery bypass grafting using a GRADY to the LAD. #2 atrial fibrillation with rapid ventricular response, treated with amiodarone and digoxin, currently in sinus rhythm. #3 Hyperlipidemia. #4 Hypertension. #5 Diabetes mellitus. #6 Remote history of smoking. Plan: The patient was seen and evaluated by Dr. Valencia. He is doing well from the pulmonary standpoint. The plan is for possible discharge in the morning. We' ll continue with his current medications. We'll continue to increase his activity as tolerated. He is again encouraged regarding the increased use of the incentive spirometer and cough and deep breathing exercises. We'll continue to follow.
[2016-11-14] MEDS: SENNOSIDES-DOCUSATE SODIUM 1 EACH TAB PO SCH (20:07)
[2016-11-14] MEDS: AMIODARONE 200 MG TAB PO SCH (20:07)
[2016-11-14 21:01] LABS: Glucose,Whole Blood 124 mg/dL (75-99)
[2016-11-15 02:07] LABS: Glucose,Whole Blood 108 mg/dL (75-99)
[2016-11-15] MEDS: INSULIN LISPRO (humaLOG) 300 UNIT/3 ML VIAL SQ SCH ×3 (02:22→12:10)
--- NOTE | 2016-11-15 05:57 | PN ---
DATE OF SERVICE: 11/14/2016 PRESENTING COMPLAINT: Coronary artery bypass. INTERVAL HISTORY: The patient is status post bypass, was in atrial fibrillation yesterday, went down to sinus rhythm. Sitting on bed, tolerating his meal. is at the bedside. Feeling much better. He has been up to the bathroom at least, been up in the hallway. Review of systems done for constitutional, cardiovascular, GI, pulmonary; relevant findings as above. Current medications are reviewed that include p.o. Cordarone. On examination, temperature 97.8, pulse 62, respirations 18, blood pressure 111/64, pulse ox 95% on room air. GENERAL APPEARANCE: Sitting up on bed, comfortable, eating his lunch. EYES: Pupils equal. Conjunctivae normal. NECK: JVD unable to assess. Mass not palpable. RESPIRATORY: Effort increased. LUNGS: Decreased breath sounds. CARDIOVASCULAR: First and second sounds normal. No edema. ABDOMEN: Soft, nontender. Liver and spleen not palpable. PSYCHIATRY: Alert and oriented x3. Mood and affect normal. INVESTIGATIONS: White count 8.6, hemoglobin 10.8. Potassium 3.7. BUN and creatinine are normal. Accu-Cheks are noted. ASSESSMENT: 1. Coronary artery bypass. 2. Coronary artery disease. 3. Paroxysmal atrial fibrillation. The patient now in sinus rhythm. 4. Hyperlipidemia. 5. Essential hypertension. 6. Hepatitis C. 7. Acute postoperative anemia expected from surgery. PLAN: Will put the patient on metformin and DC the Lantus. Care was discussed with the patient and . Will follow. DISCHARGE MEDICATIONS: Them discontinue the Lantus. Care was discussed with the patient and .
[2016-11-15] MEDS: HYDROcodone/APAP 5-325MG 1 EACH TAB PO PRN (06:12)
[2016-11-15 06:41] LABS: Basophils % (A) 0 %; CH 32.1; CHCM 34.9; Eosinophils # (A) 0.3 k/uL (0-0.7); Eosinophils % (A) 5 %; HCT 31.3 % (39.0-53.0); HDW 3.11; HGB 10.6 gm/dL (13.0-17.5); Luc # (Auto) 0.19; Luc % (Auto) 3; Lymphocytes # (A) 1.5 k/uL (1.0-4.8); Lymphocytes % (A) 21 %; MCH 31.5 pg (25.0-35.0); MCV 92.7 fL (80.0-100.0); Monocytes # (A) 0.6 k/uL (0-1.0); Monocytes % (A) 9 %; Neutrophils # (A) 4.4 k/uL (1.3-7.7); Neutrophils % (A) 63 %; RBC 3.37 m/uL (4.30-5.90); WBC 7.1 k/uL (3.8-10.6); WBC (Perox) 7.37
[2016-11-15 06:49] LABS: ALT 46 U/L (21-72); AST 35 U/L (17-59); Alkaline Phosphatase 31 U/L (38-126); Anion Gap 7 mmol/L; Blood Urea Nitrogen 18 mg/dL (9-20); Calcium 8.5 mg/dL (8.4-10.2); Carbon Dioxide 26 mmol/L (22-30); Chloride 108 mmol/L (98-107); Glucose 103 mg/dL (74-99); Non-African American GFR(MDRD) >60 (>60 ml/min/1.73 sqM); Sodium 141 mmol/L (137-145); Total Bilirubin 0.8 mg/dL (0.2-1.3); Total Protein 5.4 g/dL (6.3-8.2)
[2016-11-15 06:53] LABS: Glucose,Whole Blood 117 mg/dL (75-99)
[2016-11-15] MEDS ORDERED: metFORMIN 500 MG TAB PO SCH (07:30)
--- NOTE | 2016-11-15 07:43 | XR ---
EXAMINATION TYPE: XR chest 1V portable DATE OF EXAM: 11/15/2016 7:32 AM HISTORY: Shortness of breath. COMPARISON: 11/14/2016 TECHNIQUE: Single view of the chest is submitted. FINDINGS: Demonstrated are scattered senescent parenchymal change. There is no evidence for focal infiltrate. Stable pleural-parenchymal density left lower lobe. The heart is stable. Hilar and mediastinal structures are within normal limits. Degenerative changes are seen of the dorsal spine. IMPRESSION: 1. Chronic changes without evidence for acute pulmonary disease.
[2016-11-15] MEDS: HEPARIN SODIUM,PORCINE 5,000 UNIT/ML 1 ML VIAL SQ SCH (09:24)
[2016-11-15] MEDS: PANTOPRAZOLE 40 MG TABLET PO SCH (09:25)
[2016-11-15] MEDS: METOPROLOL TARTRATE 25 MG TAB PO SCH (09:25)
[2016-11-15] MEDS: CLOPIDOGREL 75 MG TAB PO SCH (09:25)
[2016-11-15] MEDS: AMIODARONE 200 MG TAB PO SCH (09:25)
[2016-11-15] MEDS: ATORVASTATIN 40 MG TAB PO SCH (09:25)
[2016-11-15] MEDS: ASPIRIN 325 MG TAB PO SCH (09:25)
[2016-11-15] MEDS: INSULIN GLARGINE 100 UNIT/ML 10 ML VIAL SQ SCH (10:09)
[2016-11-15 12:02] LABS: Glucose,Whole Blood 131 mg/dL (75-99)
--- NOTE | 2016-11-15 13:07 | P.PN ---
Subjective This is a very pleasant 66-year-old gentleman who has a history of diabetes Devon, hyperlipidemia, hypertension. He has a remote history of chronic tobacco dependence. He was also found to have coronary artery disease and was admitted here on 11/10/2016 for an elective off-pump coronary artery bypass grafting times one using a GRADY to the LAD. He is seen again today 11/14/2016 in follow-up on the selective care unit. He is awake and alert in no acute distress. He is doing quite well. He's been up ambulating in the hallway. He denies any worsening shortness of breath, cough or congestion. He is currently maintaining good O2 saturations in the mid 90s on room air. He's been hemodynamically stable. He is afebrile. He remains in sinus rhythm. He is continued on amiodarone. The patient is seen again today 11/15/2016 out on the selective care unit. He is currently sitting up in a chair at the bedside. He is awake and alert in no acute distress. He is still on amiodarone drip and will be switched to oral today. His rate is better controlled. He is back in sinus rhythm. His chest x -ray shows some chronic changes without an acute pulmonary process. He is still requiring 1 L of oxygen per nasal cannula as he did desaturate into the mid 80s while out walking. He denies any worsening shortness of breath, cough or congestion. His surgical pain is well controlled. Objective - Vital Signs Vital signs: Vital Signs Temp 97.4 F L 11/15/16 08:00 Pulse 72 11/15/16 08:00 Resp 18 11/15/16 08:00 BP 133/75 11/15/16 08:00 Pulse Ox 96 11/15/16 08:39 Intake & Output 11/14/16 11/15/16 11/15/16 18:59 06:59 18:59 Intake Total 696.642 200 0 Output Total 600 Balance 96.642 200 0 Weight 105.4 kg Intake: Intake, IV Titration 136.642 Amount Amiodarone 450 mg In 136.642 Dextrose 5% in Water 250 ml @ 1 MG/MIN 34.53 mls/ hr IV .Q7H31M [facility] Rx#: [id number] Oral 560 200 0 Output: Urine 600 ABP, PAP, CO, CI - Last Documented Arterial Blood Pressure 109/67 Pulmonary Artery Pressure 29/18 Cardiac Output 9.4 Cardiac Index 4.2 - Exam GENERAL EXAM: Alert, active, comfortable in no apparent distress. HEAD: Normocephalic. EYES: Normal reaction of pupils, equal size. NOSE: Clear with pink turbinates. THROAT: No erythema or exudates. NECK: No masses, no JVD. CHEST: No chest wall deformity. Dressing dry and intact. LUNGS: Equal air entry with faint crackles in the posterior bases. CVS: S1 and S2 normal with no audible mumurs, regular rhythm. ABDOMEN: No hepatosplenomegaly, normal bowel sounds, no guarding or rigidity. SPINE: No scoliosis or deformity SKIN: No rashes CENTRAL NERVOUS SYSTEM: No focal deficits, tone is normal in all 4 extremities. Extremities: There is no significant peripheral edema. No clubbing, no cyanosis. Peripheral pulses are intact. - Labs CBC & Chem 7: 11/15/16 06:16 11/15/16 06:16 Labs: Abnormal Lab Results - Last 24 Hours (Table) 11/14/16 11/14/16 11/15/16 Range/Units 16:37 20:59 02:06 RBC (4.30-5.90) m/uL Hgb (13.0-17.5) gm/dL Hct (39.0-53.0) % Chloride (98-107) mmol/L Glucose (74-99) mg/dL POC Glucose (mg/dL) 138 H 124 H 108 H (75-99) mg/dL Alkaline Phosphatase (38-126) U/L Total Protein (6.3-8.2) g/dL Albumin (3.5-5.0) g/dL 11/15/16 11/15/16 11/15/16 Range/Units 06:16 06:16 06:51 RBC 3.37 L (4.30-5.90) m/uL Hgb 10.6 L (13.0-17.5) gm/dL Hct 31.3 L (39.0-53.0) % Chloride 108 H (98-107) mmol/L Glucose 103 H (74-99) mg/dL POC Glucose (mg/dL) 117 H (75-99) mg/dL Alkaline Phosphatase 31 L (38-126) U/L Total Protein 5.4 L (6.3-8.2) g/dL Albumin 3.0 L (3.5-5.0) g/dL 11/15/16 Range/Units 12:00 RBC (4.30-5.90) m/uL Hgb (13.0-17.5) gm/dL Hct (39.0-53.0) % Chloride (98-107) mmol/L Glucose (74-99) mg/dL POC Glucose (mg/dL) 131 H (75-99) mg/dL Alkaline Phosphatase (38-126) U/L Total Protein (6.3-8.2) g/dL Albumin (3.5-5.0) g/dL Assessment and Plan Plan: Impression: #1 Coronary artery disease status post coronary artery bypass grafting using a GRADY to the LAD. #2 Atrial fibrillation with rapid ventricular response, treated with amiodarone and digoxin, currently in sinus rhythm. #3 Hyperlipidemia. #4 Hypertension. #5 Diabetes mellitus. #6 Remote history of smoking. Plan: The patient was seen and evaluated by Dr. Valencia. His chest x-ray and labs were reviewed. He is doing well from the pulmonary standpoint. We'll continue with his current medications. We'll continue to increase his activity as tolerated. He is again encouraged regarding the increased use of the incentive spirometer and cough and deep breathing exercises. We'll continue to follow.
--- NOTE | 2016-11-15 14:46 | P.PN ---
Progress Note - Text CV Surgery Nursing Principal diagnosis: Single-vessel coronary artery disease with subtotally occluded left anterior descending coronary artery. POD: #5, status post elective off pump coronary artery bypass grafting surgery 1, left internal mammary artery placed to his left anterior descending coronary artery. Intraoperative transesophageal echocardiogram. Intraoperative graft flow measurements using the Medistim system Patient awake and alert, no distress noted, no specific complaints. The patient' s is at his bedside, questions answered. Discharged instructions reviewed by Dr. Agrawal. Vital Signs: Afebrile Vital Signs - 24 hr 11/14/16 11/15/16 11/15/16 20:00 00:00 04:00 Temperature 97.0 F L 97.6 F 98.0 F Pulse Rate [ 77 68 77 Pulse Oximetery ] Respiratory 18 18 18 Rate Blood Pressure 129/70 132/78 [Left Arm Supine] Blood Pressure 141/78 [Right Arm Supine] O2 Sat by Pulse 95 95 96 Oximetry 11/15/16 11/15/16 08:00 08:39 Temperature 97.4 F L Pulse Rate [ 72 Pulse Oximetery ] Respiratory 18 Rate Blood Pressure 133/75 [Left Arm Supine] Blood Pressure [Right Arm Supine] O2 Sat by Pulse 96 96 Oximetry Labs: Short CBC 11/15/16 Range/Units 06:16 WBC 7.1 (3.8-10.6) k/uL Hgb 10.6 L (13.0-17.5) gm/dL Hct 31.3 L (39.0-53.0) % Plt Count 255 (150-450) k/uL Neutrophils # 4.4 (1.3-7.7) k/uL BMP 11/15/16 06:16 Sodium 141 Potassium 4.0 Chloride 108 H Carbon Dioxide 26 BUN 18 Creatinine 0.80 Glucose 103 H Calcium 8.5 Liver Function 11/15/16 Range/Units 06:16 Total Bilirubin 0.8 (0.2-1.3) mg/dL AST 35 (17-59) U/L ALT 46 (21-72) U/L Alkaline Phosphatase 31 L (38-126) U/L Albumin 3.0 L (3.5-5.0) g/dL Lungs: Essentially clear throughout, diminished bilateral bases. Respirations are unlabored. O2 sat: 96% on room air. I/S: 2000 mL, reviewed with the patient importance of using his incentive spirometry every hour while awake. The patient did give a good return demonstration on his incentive spirometry. We also discussed the importance of continuing his use of his symptoms some spirometry upon discharge. Heart: S1S2, regular rhythm and rate, negative for S3, gallop or murmur. Remote telemetry showing normal sinus rhythm heart rate 70. Sternum stable, chest incision clean with silver dressing clean and dry. Silver dressing removed, incision was well approximated with no drainage noted. No redness noted. Dermabond dressing in place. Knee-high PRADEEP hose and sequential compression devices in place to bilateral lower extremities. Abdomen: Soft, Positive bowel sounds present in all 4 quadrants. Positive bowel movement. CBGs: 108-138 mg/dL in the last 24 hours. U/O: Adequate. 24 hr Total: Intake & Output 11/13/16 11/14/16 11/15/16 11/16/16 06:59 06:59 06:59 06:59 Intake Total 105.626 7134.142 896.642 0 Output Total 910 1200 600 Balance -374.583 908.142 296.642 0 Weight 105.1 kg 105.1 kg 105.4 kg Active Medications Hydrocodone Bitart/Acetaminophen (Ace 5-325) 2 each PO Q4HR PRN PRN Reason: Severe Pain Last Admin: 11/15/16 06:12 Dose: 2 each Hydrocodone Bitart/Acetaminophen (Ace 5-325) 1 each PO Q4HR PRN PRN Reason: Moderate Pain Albuterol/Ipratropium (Duoneb 0.5 Mg-3 Mg/3 Ml Soln) 3 ml INHALATION RT-Q2H PRN PRN Reason: Shortness Of Breath Or Wheezing Amiodarone HCl (Cordarone) 400 mg PO BID [facility] Last Admin: 11/15/16 09:25 Dose: 400 mg Aspirin (Aspirin) 325 mg PO DAILY [facility] Last Admin: 11/15/16 09:25 Dose: 325 mg Atorvastatin Calcium (Lipitor) 40 mg PO DAILY [facility] Last Admin: 11/15/16 09:25 Dose: 40 mg Bisacodyl (Dulcolax) 10 mg RECTAL DAILY PRN PRN Reason: Constipation Clopidogrel Bisulfate (Plavix) 75 mg PO DAILY [facility] Last Admin: 11/15/16 09:25 Dose: 75 mg Heparin Sodium (Porcine) (Heparin) 5,000 unit SQ Q8HR [facility] Last Admin: 11/15/16 09:24 Dose: 5,000 unit Insulin Glargine (Lantus) 15 unit SQ DAILY [facility] Last Admin: 11/15/16 10:09 Dose: 15 unit Insulin Human Lispro (Humalog) 0 unit SQ [id number] [id number] PRN Reason: Protocol Last Admin: 11/15/16 12:10 Dose: Not Given Magnesium Hydroxide (Milk Of Magnesia) 2,400 mg PO BID PRN PRN Reason: Constipation Metformin HCl (Glucophage) 1,000 mg PO BID-W/MEALS [facility] Last Admin: 11/15/16 06:56 Dose: 1,000 mg Metoclopramide HCl (Reglan) 10 mg IVP Q4H PRN PRN Reason: Nausea And Vomiting Metoprolol Tartrate (Lopressor) 25 mg PO BID [facility] Last Admin: 11/15/16 09:25 Dose: 25 mg Miscellaneous Information (Magnesium Per Protocol) 1 each MISCELLANE DAILY PRN ; Protocol PRN Reason: Per Protocol Miscellaneous Information (Potassium Per Protocol) 1 each MISCELLANE DAILY PRN ; Protocol PRN Reason: Per Protocol Miscellaneous Information (Potassium Per Protocol) 1 each MISCELLANE DAILY PRN ; Protocol PRN Reason: Per Protocol Miscellaneous Information (Potassium Per Protocol) 1 each MISCELLANE DAILY PRN ; Protocol PRN Reason: Per Protocol Ondansetron HCl (Zofran) 4 mg IVP Q6HR PRN PRN Reason: Nausea And Vomiting Last Admin: 11/15/16 08:21 Dose: 4 mg Pantoprazole Sodium (Protonix) 40 mg PO DAILY [facility] Last Admin: 11/15/16 09:25 Dose: 40 mg Senna/Docusate Sodium (Senokot-S) 2 each PO HS [facility] Last Admin: 11/14/16 20:07 Dose: 2 each Sodium Chloride (Saline Flush) 10 ml IV BID [facility] Last Admin: 11/15/16 09:26 Dose: 10 ml Plan: 1. Continue aspirin, statin, Plavix, and metoprolol 25 mg by mouth twice a day. Heparin subcu will be discontinued upon discharge. 2. Discharge instructions reviewed with the patient and his . 3. Blood sugar and medical management per Dr. Cohen. He will be discharged home on metformin 1000 mg by mouth twice a day with twice a day, glucometer checks. school vocational educator reviewed instructions with patient. 4. DVT and GI prophylaxis in place. 5. Amiodarone will continue upon discharge 400 mg by mouth twice a day 1 week , then amiodarone 200 mg by mouth twice a day 1 week, nothing by mouth 200 mg daily thereafter. 6. He will be discharged home today and followed by [facility] care.
--- NOTE | 2016-11-15 15:11 | P.DS ---
Providers Date of admission: 11/10/16 05:55 Attending physician: George Villeda Consults: 11/10/16 13:51 Consult Physician Routine Consulting Provider: Lan Cohen Consult Reason/Comments: medical management Do you want consulting provider notified?: Yes 11/10/16 13:52 Consult Physician Routine Consulting Provider: Niall Leon Consult Reason/Comments: Marine Mammal Trainer Consult: post cardiac surgery Do you want consulting provider notified?: Yes Consult Physician Routine Consulting Provider: Jorge A Frost Consult Reason/Comments: Foreign Trade Teacher Consult: post cardiac surgery Do you want consulting provider notified?: Yes Primary care physician: [facility] Course: FINAL DIAGNOSIS: 1.[Coronary artery disease with subtotally occluded left anterior descending coronary artery.] 2.[Hypertension] 3.[Hyperlipidemia] 4.[Diabetes mellitus type 2] 5.[Hepatitis C reactive] 6.[Postoperative paroxysmal atrial fibrillation] 7.[Remote history of nicotine dependence, smoking] PRINCIPAL PROCEDURE: 1.[Elective off-pump coronary artery bypass grafting 1 using the left internal mammary artery to the left anterior descending coronary artery.] 2.[Intraoperative transesophageal echocardiogram.] 3.[Intraoperative graft flow measurement using the VM[employer] Software[employer] system.] HISTORY OF PRESENT ILLNESS: [This is a 66-year-old gentleman who is followed by Dr. Carlitos Tripathi on an outpatient basis. 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 Subsequently he was referred to Dr. Dr. Frost from [facility] for further evaluation and workup. The patient did have a 12-lead EKG completed in June 2016 which demonstrated some T-wave changes in his anterior lateral leads. For further evaluation the patient underwent an elective heart catheterization with left ventriculography on 11/03/2016 which demonstrated the patient to have a critical lesion involving the left anterior descending coronary artery which is a long lesion. It also demonstrated a critical lesion involving the septal branch. The rest of the coronary arteries were free from occlusive disease. Also during heart catheterization a left ventriculogram was completed which showed him to have a normal size cardiac silhouette with hypokinesia of the apex and an anterior apical segments with an ejection fraction of 45%. For further workup patient underwent a 2-D echocardiogram which showed mild ratemild tricuspid regurgitation, with an overall left ventricular systolic function with low normal function and an ejection fraction of 50-55%. The above-mentioned studies were reviewed with the patient by Dr. Frost and by Dr. Villeda from cardiac surgery and an elective heart catheterization was recommended.] HOSPITAL COURSE:[The patient was admitted to the hospital and after obtaining consent the patient underwent an elective off-pump coronary artery bypass grafting surgery [address] George Villeda. The patient's left internal mammary artery was placed to his left anterior descending coronary artery. He also underwent an intraoperative transesophageal echocardiogram and intraoperative graft flow measurement using the Medistim system. The patient was then transferred to the cardiovascular intensive care unit where he was recovered, monitored hemodynamically, and where he progressed to cardiac rehabilitation phase 1. The patient was subsequently transferred to [address] [place] [address] for further monitoring and rehabilitation. Subsequently while he was on [facility] he had some episodes of paroxysmal atrial fibrillation which were treated accordingly.] COMPLICATIONS: [Postoperative paroxysmal atrial fibrillation which was treated accordingly.] CONSULTATIONS: 1.[Dr. Frost for cardiology management] 2.[Dr. Leon for pulmonary and ventilator management] 3.[Dr. Cohen for medical management and diabetic management Review of] DISCHARGE INSTRUCTIONS: 1. No driving for 4 weeks, or until physician gives their ok. 2. The patient should sleep in their own bed, no medical bed needed. 3. Stairs are not an issue. If the bedroom is upstairs, it is advised that the patient go up at night and down in the morning for the first week. Go slowly, using handrail and take 1 step at a time. 4. PRADEEP hose are to be worn for 30 days or until physician discontinues. 5. Heart hugger is to be worn 100% of the time until physician discontinues.( excepet when showering) 6. No lifting, pushing, or pulling more than 10 pounds for 12 weeks. The physician will advise of any restriction changes. 7. The patient is expected to continue the prescribed walking program. 8. Continue pain control per as needed orders. 9. Continue with incentive spirometry and splinting/heart hugger until otherwise directed by the physician. 10. Must shower daily using liquid antibacterial soap and a separate white washcloth for each individual incision. 11. Please remove his sutures to his chest 1 week post discharge. 12. The patient was instructed to check his blood sugars twice daily and keep a log of his blood sugars to take with his follow-up appointments to Dr. Calderon. HOME HEALTH SERVICES TO PROVIDE: RN SKILLED HOME CARE SERVICES FOR POST-OP SURGICAL PATIENTS WITH THE FOLLOWING: Coronary Artery Bypass Surgery (CABG), Mitral Valve Replacement/ Repair ( MVR), Aortic Valve Replacement/Repair (AVR) RN TO CONTINUE EDUCATION FROM ``ROAD TO A HEALTH HEART PATIENT EDUCATION MANUAL (GIVEN TO PATIENT IN THE HOSPITAL) MEDICATION RECONCILIATION WITH EDUCATION NEEDED ON FIRST HOME VISIT EMPHASIZE IMPORTANCE OF WEARING BREAST SUPPORT/HEART HUGGER ENCOURAGE USE OF INCENTIVE SPIROMETER 10 X EVERY HOUR WHILE AWAKE ENCOURAGE UTILIZATION OF LOWER EXTREMITY COMPRESSION STOCKINGS/PRADEEP HOSE and ELEVATE LEGS ABOVE LEVEL OF HEART WHILE AT REST. ENCOURAGE AMBULATION 3-5x/day INCREASING TOLERATES, WHILE AVOID EXTREMES IN TEMPERATURE FREQUENCY: RN TO OPEN THE PATIENT WITHIN 24 HOURS OF DISCHARGE FROM THE HOSPITAL WITH TELEHEALTH INSTALLED AT [facility], RN TO VISIT 2-3 X A WEEK FOR 4 WEEKS ESTABLISHED BY PATIENT NEEDS. REMOVAL OF SUTURES: NURSING SERVICES TO REMOVE SUTURES TWO WEEKS POST SURGICAL DATE [11/24/2016]. If any questions regarding suture removal please call the office at [phone]. LABORATORY: CBC, CMP TO BE DRAWN ON THE THIRD DAY HOME, 11/18/2016 (RAN STAT ) FAX RESULTS TO [phone]. TELEHEALTH PARAMETERS: WEIGHT: NOTIFY MD OF WEIGHT GAIN OF 2 LBS IN 24 HOURS OR 5 LBS IN ONE WEEK HR: NOTIFY MD OF HR <55 BPM OR HR>100 BPM BP: NOTIFY MD IF BP <90/55 OR BP>140/100 O2 SAT: NOTIFY MD IF PO2<93% ON ROOM AIR SEND TELEHEALTH REPORT TO STILL WORKER HELPER AND CARDIOVASCULAR SURGEON THE FIRST WEEK OF CARE AND THEN BI-WEEKLY. PLEASE ADDITIONALLY COMMUNICATE ANY ABNORMALS AND NEW FINDINGS TO THE SURGEONS OFFICE. Discharge medication for the amiodarone as follows amiodarone 400 mg by mouth twice a day 1 week, then amiodarone 200 mg by mouth twice a day 1 week then amiodarone 200 mg by mouth daily thereafter. Plan - Discharge Summary New Discharge Prescriptions: HYDROcodone/APAP 5-325MG [[place] 5-325] 2 each PO Q4HR PRN #30 tab PRN Reason: Severe Pain Amiodarone [Cordarone] 400 mg PO BID #60 tab Aspirin 325 mg PO DAILY #30 tab Atorvastatin [Lipitor] 40 mg PO DAILY #30 tab Clopidogrel [Plavix] 75 mg PO DAILY #30 tab Metoprolol Tartrate [Lopressor] 25 mg PO BID #60 tab Pantoprazole [Protonix] 40 mg PO DAILY #30 tablet. metFORMIN HCL [Glucophage] 1,000 mg PO BID-W/MEALS #60 tab Discharge Medication List Gluc/Gregg-MSM#1/C/Robinson/Link/Bor [Glucosamine-Chondroitin Tablet] 1 tab PO DAILY 11/01/16 [History] Lactobacillus Acidophilus [Acidophilus] 1 tab PO DAILY 11/01/16 [History] Montelukast Sodium [Singulair] 10 mg PO DAILY 11/01/16 [History] Multivitamins, Thera [Multivitamin (formulary)] 1 tab PO DAILY 11/01/16 [History ] Lisinopril [Zestril] 2.5 mg PO DAILY tab 11/04/16 [Rx] [place]-3 1,500 mg PO Q48H 11/10/16 [History] Amiodarone [Cordarone] 400 mg PO BID #60 tab 11/15/16 [Rx] Aspirin 325 mg PO DAILY #30 tab 11/15/16 [Rx] Atorvastatin [Lipitor] 40 mg PO DAILY #30 tab 11/15/16 [Rx] Clopidogrel [Plavix] 75 mg PO DAILY #30 tab 11/15/16 [Rx] HYDROcodone/APAP 5-325MG [[place] 5-325] 2 each PO Q4HR PRN #30 tab 11/15/16 [Rx] Metoprolol Tartrate [Lopressor] 25 mg PO BID #60 tab 11/15/16 [Rx] Pantoprazole [Protonix] 40 mg PO DAILY #30 tablet. 11/15/16 [Rx] metFORMIN HCL [Glucophage] 1,000 mg PO BID-W/MEALS #60 tab 11/15/16 [Rx] Follow up Appointment(s)/Referral(s): George Villeda MD [STAFF PHYSICIAN] - 12/09/16 9:45 am Niall Leon DO [Doctor of Osteopathic Medicine] - 11/22/16 1:30 pm [facility], [NON-STAFF] - Carlitos Calderon MD [Primary Care Provider] - 11/18/16 1:30 pm Jorge A Frost MD [STAFF PHYSICIAN] - 11/23/16 2:45 pm
--- NOTE | 2016-11-15 15:13 | P.PN ---
Subjective Principal diagnosis: Status post CABG This is a 66-year-old gentleman who underwent single-vessel bypass surgery to the LAD. He remains in normal sinus rhythm today, on oral amiodarone. Overall doing very well. Up ambulating without any difficulty. Patient does feel somewhat clammy, he is afebrile, denies chest pain, Objective - Vital Signs Vital signs: Vital Signs Temp 97.4 F L 11/15/16 08:00 Pulse 72 11/15/16 08:00 Resp 18 11/15/16 08:00 BP 133/75 11/15/16 08:00 Pulse Ox 96 11/15/16 08:39 Intake & Output 11/14/16 11/15/16 11/15/16 18:59 06:59 18:59 Intake Total 696.642 200 0 Output Total 600 Balance 96.642 200 0 Weight 105.4 kg Intake: Intake, IV Titration 136.642 Amount Amiodarone 450 mg In 136.642 Dextrose 5% in Water 250 ml @ 1 MG/MIN 34.53 mls/ hr IV .Q7H31M [facility] Rx#: [id number] Oral 560 200 0 Output: Urine 600 ABP, PAP, CO, CI - Last Documented Arterial Blood Pressure 109/67 Pulmonary Artery Pressure 29/18 Cardiac Output 9.4 Cardiac Index 4.2 - Exam PHYSICAL EXAMINATION: HEENT: Head is atraumatic, normocephalic. Pupils equal, round. Neck is supple. There is no elevated jugular venous pressure. HEART EXAMINATION: Heart S1, S2 normal. No murmur or gallop heard. CHEST EXAMINATION: Lungs are clear to auscultation and precussion. No chest wall tenderness is noted on palpation or with deep breathing. ABDOMEN: Soft, nontender. Bowel sounds are heard. No organomegaly noted. EXTREMITIES: 2+ peripheral pulses with no evidence of peripheral edema and no calf tenderness noted. NEUROLOGIC patient is awake, alert and oriented -3. . - Labs CBC & Chem 7: 11/15/16 06:16 11/15/16 06:16 Labs: Abnormal Lab Results - Last 24 Hours (Table) 11/14/16 11/14/16 11/15/16 Range/Units 16:37 20:59 02:06 RBC (4.30-5.90) m/uL Hgb (13.0-17.5) gm/dL Hct (39.0-53.0) % Chloride (98-107) mmol/L Glucose (74-99) mg/dL POC Glucose (mg/dL) 138 H 124 H 108 H (75-99) mg/dL Alkaline Phosphatase (38-126) U/L Total Protein (6.3-8.2) g/dL Albumin (3.5-5.0) g/dL 11/15/16 11/15/16 11/15/16 Range/Units 06:16 06:16 06:51 RBC 3.37 L (4.30-5.90) m/uL Hgb 10.6 L (13.0-17.5) gm/dL Hct 31.3 L (39.0-53.0) % Chloride 108 H (98-107) mmol/L Glucose 103 H (74-99) mg/dL POC Glucose (mg/dL) 117 H (75-99) mg/dL Alkaline Phosphatase 31 L (38-126) U/L Total Protein 5.4 L (6.3-8.2) g/dL Albumin 3.0 L (3.5-5.0) g/dL 11/15/16 Range/Units 12:00 RBC (4.30-5.90) m/uL Hgb (13.0-17.5) gm/dL Hct (39.0-53.0) % Chloride (98-107) mmol/L Glucose (74-99) mg/dL POC Glucose (mg/dL) 131 H (75-99) mg/dL Alkaline Phosphatase (38-126) U/L Total Protein (6.3-8.2) g/dL Albumin (3.5-5.0) g/dL Assessment and Plan (1) Paroxysmal a-fib Status: Acute (2) CAD (coronary artery disease) Status: Acute (3) Diabetes Status: Acute (4) S/P CABG (coronary artery bypass graft) Status: Acute Plan: From cardiology's perspective, patient is doing well overall. Arrangements are being made for the patient to be discharged home today, follow-up appointment will be made in the office 2 weeks post discharge. DNP note has been reviewed, I agree with a documented findings and plan of care. Patient was seen and examined.
[2016-11-15 16:07] VITALS: BP 116/68; PULSE 61; TEMP 97.2
--- NOTE | 2016-11-15 18:56 | PN ---
DATE OF SERVICE: 11/15/2016 PRESENTING COMPLAINT: Coronary artery bypass. INTERVAL HISTORY: The patient is status post bypass. He was in atrial fibrillation yesterday when he went down to sinus rhythm. Currently sitting on bed, able to tolerate meals. Patient states he had an episode of nausea prior to breakfast this morning. His is at the bedside. Feeling much better. Patient has been up to the bathroom, has been up in the hallway. REVIEW OF SYSTEMS: Done for constitutional, cardiovascular, GI, pulmonary; relevant findings as above. Current medications are reviewed and they include p.o. Cordarone. On exam, temperature 97.4, pulse 72, respirations 18, blood pressure 133/75, pulse ox 96% on room air. INVESTIGATIONS: Hemoglobin 10.6. Basic metabolic panel within normal limits. Blood glucose ranging between 103 and 144 in the past 24 hours. ASSESSMENT: 1. Coronary artery bypass graft. 2. Coronary artery disease. 3. Paroxysmal atrial fibrillation. The patient is currently in sinus rhythm. 4. Hyperlipidemia. 5. Essential hypertension. 6. Hepatitis C. 7. Acute postoperative anemia, expected from surgery. PLAN: Patient was put on metformin and Lantus was discontinued on 11/14. Care was discussed with the patient and his . Will continue to follow.
[2016-11-16 12:32] LABS: ABG HCO3 23 mmol/L (21-25); ABG Oxygen Saturation 99.7 % (94-97); ABG PCO2 33 mmHg (35-45); ABG PH 7.46 (7.35-7.45); ABG PO2 191 mmHg (83-108); ABG TCO2 24 mmol/L (19-24)
[2016-11-16 12:33] LABS: ABG Base Excess -0.7 mmol/L; ABG HCO3 23 mmol/L (21-25); ABG Oxygen Saturation 98.2 % (94-97); ABG PCO2 38 mmHg (35-45); ABG PO2 107 mmHg (83-108); ABG TCO2 25 mmol/L (19-24)
[2016-11-16 12:34] LABS: ABG Base Excess -1.8 mmol/L; ABG HCO3 23 mmol/L (21-25); ABG PCO2 40 mmHg (35-45); ABG PH 7.37 (7.35-7.45); ABG PO2 133 mmHg (83-108); ABG TCO2 24 mmol/L (19-24)
--- NOTE | 2016-11-16 22:14 | PN ---
DATE OF SERVICE: 11/15/2016 PRESENTING COMPLAINT: Coronary artery bypass. INTERVAL HISTORY: Patient is status post bypass, seen by me on 11/15/16. Patient remains in sinus rhythm, doing much better. Sitting up a bit. Tolerating his meals. His is again at the bedside. Overall feels much better. Keen to go home. Patient has been up and about in the hallway. Review of systems done for constitutional, cardiovascular, GI, pulmonary; relevant findings as above. Current medications are reviewed. On examination, temperature 97.4, pulse 72, respiration 18, blood pressure 133/75, pulse ox noted. GENERAL APPEARANCE: Sitting up in bed, comfortable. EYES: Pupils equal. Conjunctivae normal. NECK: JVD not raised. Mass not palpable. RESPIRATORY: Effort normal. LUNGS: Decreased breath sounds. CARDIOVASCULAR: First and second sounds normal. No edema. ABDOMEN: Soft, nontender. Liver and spleen not palpable. PSYCHIATRY: Alert and oriented x3. Mood and affect normal. INVESTIGATIONS: White count 7.1, hemoglobin 10.6. Potassium 4.0. ASSESSMENT: 1. Coronary artery bypass. 2. Coronary artery disease. 3. Paroxysmal atrial fibrillation. Patient is back in sinus rhythm. 4. Hyperlipidemia. 5. Essential hypertension. 6. Hepatitis C. 7. Acute postoperative anemia, as expected from surgery. PLAN: Care was discussed patient and his . Patient was told to keep ( ) Accu-Cheks, continue with metformin, and follow with his family doctor.
== END 2016-11-15 16:11 | disposition home health service (06) | DRG 236 ==
LOC: 2ORMAIN 05:55 → 6ICU 13:22 → 6SEL 11-12 15:26
PROVIDERS: ADMIT Surgery; ATTEND Surgery
PROC: 02100Z9 Bypass Coronary Artery, One Artery from Left Internal Mammary, Open Approach (ICD-10-PCS; principal; 2016-11-10 08:00)
DX: I25.10 Atherosclerotic heart disease of native coronary artery without angina pectoris (principal); D62 Acute posthemorrhagic anemia; J98.11 Atelectasis; E11.65 Type 2 diabetes mellitus with hyperglycemia; I10 Essential (primary) hypertension; B19.20 Unspecified viral hepatitis C without hepatic coma; E78.5 Hyperlipidemia, unspecified; I07.1 Rheumatic tricuspid insufficiency; I48.0 Paroxysmal atrial fibrillation; F41.9 Anxiety disorder, unspecified; Z79.82 Long term (current) use of aspirin; Z79.899 Other long term (current) drug therapy; Z87.891 Personal history of nicotine dependence
CPT/HCPCS: 36620; 71010; 71020; 80051; 80053; 80061; 80074; 82330; 82805; 83735; 83880; 84100; 84132; 84443; 85025; 85520; 85610; 85730; 86850; 86891; 86900; 86901; 86920; 94002; 94003; 94640; 94760

== ENCOUNTER → 2018-10-27 | Outpatient (CLI) | payer MEDICARE ==
[2018-10-27 10:16] LABS: Basophils % (A) 1 %; Eosinophils # (A) 0.3 k/uL (0-0.7); Eosinophils % (A) 4 %; HCT 42.1 % (39.0-53.0); HGB 14.8 gm/dL (13.0-17.5); Lymphocytes # (A) 1.9 k/uL (1.0-4.8); Lymphocytes % (A) 30 %; MCH 30.9 pg (25.0-35.0); MCHC 35.2 g/dL (31.0-37.0); Mean Platelet Volume 9.1; Monocytes # (A) 0.5 k/uL (0-1.0); Monocytes % (A) 8 %; Neutrophils # (A) 3.6 k/uL (1.3-7.7); Neutrophils % (A) 56 %; Platelet Count 220 k/uL (150-450); RBC 4.79 m/uL (4.30-5.90); RDW 15.3 % (11.5-15.5); WBC 6.5 k/uL (3.8-10.6)
[2018-10-27 17:35] LABS: Albumin 4.3 g/dL (3.80-4.90); Albumin/Globulin Ratio 2.26 (1.60-3.17); Anion Gap 4.9 mmol/L (4.00-12.00); Calcium 9.4 mg/dL (8.7-10.3); Carbon Dioxide 31.1 mmol/L (21.6-31.8); Globulin 1.9 g/dL (1.6-3.3); LDL Cholesterol,Calculated 28.8 mg/dL (0.0-131.0); Potassium 4.8 mmol/L (3.5-5.5); Total Bilirubin 0.9 mg/dL (0.2-1.2); Total Protein 6.2 g/dL (6.2-8.2); VLDL Calculation 12.2 mg/dL (5.00-40.00)
== END ==
LOC: LABWHC1 09:14
PROVIDERS: ATTEND Internal Medicine
DX: I25.10 Atherosclerotic heart disease of native coronary artery without angina pectoris (principal); I48.91 Unspecified atrial fibrillation
CPT/HCPCS: 36415; 80053; 80061; 84443; 85025

== ENCOUNTER → 2019-02-11 | Outpatient (CLI) | payer MEDICARE ==
--- NOTE | 2019-02-11 13:31 | US ---
EXAMINATION TYPE: US duplex aorta DATE OF EXAM: 02/11/2019 COMPARISON: NONE CLINICAL HISTORY: Z13.6 Screening for AAA. EXAM MEASUREMENTS: Abdominal Aorta: Proximal: 2.1 x 2.3cm Mid: 2.2 x 2.1cm Distal: 1.7 x 1.6cm Right Iliac: 0.9 x 0.9cm Left Iliac: 0.9 x 1.0cm No AAA seen at this time IMPRESSION: No evidence for aortic aneurysm.
== END | disposition home or self-care (01) ==
LOC: RADUSWWP 06:51
PROVIDERS: ATTEND Internal Medicine
DX: Z13.6 Encounter for screening for cardiovascular disorders (principal)
CPT/HCPCS: 93979

== ENCOUNTER 2021-02-12 06:53 | Day surgery (SDC) | payer MEDICARE ==
[2021-02-10 13:13] VITALS: BMI 29.0
[~2021-02-12 06:53] MED LIST changes: -ALBUMIN HUMAN 25% 50 ML IV ONE; -ALBUMIN HUMAN 5% 500 ML IVPB ONE; -ASPIRIN 325 MG TAB PO ONE; -ATORVASTATIN 10 MG TAB PO ONE; -CALCIUM CHLORIDE 100 MG/ML 10 ML SYRINGE IV ONE; -CHLORHEXIDINE GLUCONATE 15 ML CUP MUCOUS MEM ONE; -HEPARIN SODIUM 1,000 UNIT/ML VIAL IV ONE; -HEPARIN SODIUM,PORCINE 5,000 UNIT in SODIUM CHLORIDE 0.9% 500 ML IV ONE; -INSULIN REGULAR 100 UNIT in SODIUM CHLORIDE 0.9% 100 ML IV ONE; -LACTATED RINGERS 1,000 ML IV ONE; +LACTATED RINGERS 1,000 ML IV SCH; -MAGNESIUM SULFATE MG 500 MG/ML VIAL IV ONE; -METOPROLOL TARTRATE 12.5 MG TAB PO ONE; -NITROGLYCERIN SL TABS 0.4 MG TAB SUBLINGUAL ONE; -NITROGLYCERIN-D5W PMX 25 MG/250 ML BTL IV ONE; -NITROGLYCERIN-D5W PMX 50 MG in DEXTROSE/WATER 1 250ML.BAG IV ONE; -NOREPINEPHRIN 4 MG-0.9% NS PMX 4 MG/250 ML ML IV ONE; -PAPAVERINE 360 MG in SODIUM CHLORIDE 0.9% 90 ML IV ONE; -PHENYLEPHRINE 40 MG in SODIUM CHLORIDE 0.9% 250 ML IV ONE; -PHENYLEPHRINE-0.9% NACL SYG 1 MG/10 ML SYRINGE IV ONE; -PROPOFOL 50 ML IV ONE; -PROTAMINE SULFATE 10 MG/ML 25 ML VIAL IV ONE; -PROTAMINE SULFATE 250 MG in EMPTY BAG 1 BAG IV ONE; -SODIUM BICARB 8.4% 50 ML SYR (1 MEQ/ML) IV ONE; -SODIUM CHLORIDE 0.9% 1,000 ML IV ONE; -VANCOMYCIN 1,500 MG in SODIUM CHLORIDE 0.9% 100 ML IVPB ONE; -VANCOMYCIN 1,500 MG in SODIUM CHLORIDE 0.9% 250 ML IVPB ONE; -ceFAZolin 1,000 MG in SODIUM CHLORIDE 0.9% IRRIGATIO 1,000 ML IRRIGATION ONE; -ceFAZolin 2,000 MG in SODIUM CHLORIDE 0.9% 30 ML IVPB ONE
[2021-02-12 07:25] LABS: Glucose,Whole Blood 140 mg/dL (75-99)
[2021-02-12 07:26] VITALS: TEMP 96.9
[2021-02-12] MEDS ORDERED: MIDAZOLAM 2 MG/2 ML VIAL ONE (07:46)
[2021-02-12] MEDS ORDERED: PROPOFOL 10 MG/ML 20 ML VIAL IV ONE (07:46)
[2021-02-12] MEDS ORDERED: fentaNYL (PF) 50 MCG/ML 2 ML AMP ONE (07:46)
--- NOTE | 2021-02-12 08:04 | P.PCN ---
Date of Procedure: 02/12/21 Procedure(s) Performed: BRIEF HISTORY: Patient is a 70-year-old pleasant male scheduled for an elective colonoscopy as a part of evaluation of prior history of colon polyps. PROCEDURE PERFORMED: Colonoscopy with snare polypectomy. PREOPERATIVE DIAGNOSIS: History of colon polyps. IV sedation per Anesthesia. PROCEDURE: After informed consent was obtained, the patient, was brought into the endoscopy unit. IV sedation was administered by Anesthesia under continuous monitoring. Digital rectal examination was normal. Initially the Olympus CF-160 flexible video colonoscope was then inserted in the rectum, gradually advanced into the cecum without any difficulty. Careful examination was performed as the scope was gradually being withdrawn. Ileocecal valve and the appendiceal orifice were visualized and appeared normal. Prep was excellent. There was a 1 cm polyp in the base of the cecum that was removed by snare polypectomy. Rest of the mucosa of the cecum, ascending colon, transverse colon, descending colon, appeared normal. In the sigmoid: There was a 3 mm polyp removed by snare polypectomy. Rest of the sigmoid colon, and rectum appeared normal. Retroflexion was performed in the rectum and no lesions were seen. The patient tolerated the procedure well. IMPRESSION: 1 cm cecal polyp status post snare polypectomy 3 mm sigmoid; polyp serous was snare polypectomy RECOMMENDATIONS: Findings of this examination were discussed with the patient as well as his family.. He was advised to follow with the biopsy results. If the biopsy shows an adenoma he can have a repeat colonoscopy in 3-5 years
[2021-02-12 08:32] VITALS: BP 100/72; PULSE 60; RESP 18
== END 2021-02-12 08:45 | disposition home or self-care (01) ==
LOC: ORWHC2ENDO 06:53
PROVIDERS: ATTEND Internal Medicine Gastroenterology
DX: Z12.11 Encounter for screening for malignant neoplasm of colon (principal); Z86.010 Personal history of colon polyps; D12.0 Benign neoplasm of cecum; I10 Essential (primary) hypertension; E78.5 Hyperlipidemia, unspecified; I25.10 Atherosclerotic heart disease of native coronary artery without angina pectoris; Z79.899 Other long term (current) drug therapy; Z79.82 Long term (current) use of aspirin; Z88.8 Allergy status to other drugs, medicaments and biological substances
CPT/HCPCS: 88305; 45385; J2250; J3010; J2704

== ENCOUNTER → 2022-08-23 | Outpatient (CLI) | payer OTHER | END | disposition home or self-care (01) | LOC: LABWHC1 14:18 | PROVIDERS: ATTEND Internal Medicine | DX: Z86.19 Personal history of other infectious and parasitic diseases (principal) | CPT/HCPCS: 36415; 87522 ==